=== PATIENT | female | born 1965 | race African-American/Black ===

== ENCOUNTER 2022-05-25 06:51 | Outpatient (REF) | payer OTHER, SELFPAY ==
[2022-05-25 07:22] LABS: MANUAL DIFF FLAG NO
[2022-05-25 07:45] LABS: Basophils Percent Auto 0.8 % (0-2); Eosinophils Absolute Auto 0.4 X10*3/uL (0.0-0.4); Eosinophils Percent Auto 7.6 % (0-4); Hematocrit 34.7 % (37.0-47.0); Hemoglobin 10.8 g/dl (12.0-16.0); Imm Gran Abs Auto 0.01 X10*3/uL (0.00-0.03); Imm Gran Pct Auto 0.2 % (0.0-0.4); Lymphocytes Absolute Auto 1.8 X10*3/uL (1.2-4.9); Lymphocytes Percent Auto 33.8 % (20-40); Mean Corpuscular HGB Conc 31.1 g/dl (31.0-35.0); Mean Corpuscular Hemoglobin 25.7 pg (27.0-33.0); Mean Corpuscular Volume 82.4 fL (80.0-98.0); Mean Platelet Volume 12.1 fL (9.4-12.3); Monocytes Absolute Auto 0.5 X10*3/uL (0.1-1.2); Monocytes Percent Auto 9.5 % (2-11); Neutrophils Absolute Auto 2.5 x10*3/uL (2.0-8.3); Neutrophils Percent Auto 48.1 % (45-73); Platelet Count 262 X10*3/uL (160-400); Red Blood Count 4.21 X10*6/uL (4.20-5.50); Red Cell Distribution Width 13.4 % (11.0-16.0); White Blood Count 5.2 X10*3/uL (4.8-10.8)
[2022-05-25 07:57] LABS: Estimated Average Glucose 329 mg/dL; Hemoglobin A1c % 13.1 %
[2022-05-25 09:25] LABS: Alanine Aminotransferase 14 U/L (0-31); Alkaline Phosphatase 55 U/L (39-117); Anion Gap 14 (12-20); Aspartate Amino Transferase 12 U/L (5-31); Bilirubin Total 0.6 mg/dL (0.0-1.0); Blood Urea Nitrogen 15 mg/dL (9-16); Calcium 9.6 mg/dL (8.4-10.2); Carbon Dioxide 26 mmol/L (22-29); Chloride 100 mmol/L (96-108); Cholesterol 235 mg/dL; Estimated Glomerular Filt Rate 56; Glucose Random 367 mg/dL (60-115); HDL Cholesterol 57 mg/dL; LDL Cholesterol Calculated 163 mg/dl; Potassium 5.1 mmol/L (3.3-5.1); Sodium 135 mmol/L (135-145); TSH reflex Free T4 8.35 uIU/mL (0.32-4.0); Total Protein 6.2 g/dL (6.5-8.0); Triglycerides 79 mg/dL; Vitamin D 25-OH Total 24.3 ng/mL (>30)
[2022-05-25 09:50] LABS: Creatinine Urine 124.37 mg/dL
[2022-05-25 10:16] LABS: Microalbum/Creatinine Ratio Ur 1645.8 ug/mg cr
[2022-05-25 10:24] LABS: Free T4 (Free Thyroxine) 0.81 ng/dL (0.71-1.85)
== END 2022-05-25 06:52 | disposition home or self-care (01) ==
LOC: HO.LAB 06:51
PROVIDERS: PCP Internal Medicine; Visit Provider Nurse Practitioner Family
DX: I10 Essential (primary) hypertension (principal); E11.9 Type 2 diabetes mellitus without complications; Z13.21 Encounter for screening for nutritional disorder; Z13.29 Encounter for screening for other suspected endocrine disorder
CPT/HCPCS: 36415; 80053; 80061; 82043; 82306; 83036; 84439; 84443; 85025

== ENCOUNTER → 2022-05-27 15:10 | Outpatient (REF) | payer OTHER, SELFPAY ==
--- NOTE | 2022-05-27 15:13 | CA_ITS ---
Transthoracic Echocardiogram Patient (Last, First, Middle): Vesta Cronin A Gender: Female Date of : 1965 Age: 57 Procedure Date: 05/27/2022 Procedure Type: Transthoracic Echocardiogram Location: OP Height: 167.64 cm Weight: 78.93 kg BSA: 1.89 m2 Heart Rate: bpm BP: 116 / 60 mmHg Sports Equipment Supervisor: Referring MD: Aurora PATTON Symptoms: R01.1 - Cardiac murmur, unspecified Study Quality: Good ECG Rhythm: Atrial Fibrillation Conclusions: - The left ventricular systolic function is moderately decreased. The visually estimated ejection fraction is between 35-40%. - Evidence suggests grade II (moderate) diastolic dysfunction. - No obvious valvular pathology seen on this study. - Small to moderate circumferential pericardial effusion. Findings Left Ventricle Normal left ventricular cavity size. There is moderately increased left ventricular wall thickness. The left ventricular systolic function is moderately decreased. The visually estimated ejection fraction is between 35 40%. E/E prime ratio is >15, consistent with elevated filling pressures. Evidence suggests grade II (moderate) diastolic dysfunction. LV peak GLS 10.4%. Right Ventricle Normal right ventricular cavity size and systolic function. Atria The left atrium is mildly dilated. The right atrium is normal in size. Aortic Valve There is a normal trileaflet aortic valve. There is no aortic valve stenosis. There is trace (trivial) aortic valve regurgitation. Mitral Valve The mitral valve appears normal. There is trace mitral valve regurgitation. There is no mitral valve stenosis. Pulmonic Valve The pulmonic valve is likely normal. Tricuspid Valve Normal tricuspid valve structure. There is trace tricuspid valve regurgitation. Borderline pulmonary artery systolic pressure. Great Vessels The asc aorta is normal in size. Venous The inferior vena cava is normal in size and collapses greater than 50% with inspiration. Pericardium/Pleural Small to moderate circumferential pericardial effusion. No evidence of tamponade. Prior Study Comparison No prior study available for comparison. Recommendations, Care & Conclusions No obvious valvular pathology seen on this study. Measurements 2D Linear Measurements IVSd: 1.35 0.6-0.9/0.6-1.0 cm LVIDd: 4.40 3.9-5.3/4.2-5.9 cm LVIDd Index: 2.33 2.4-3.2/2.2-3.1 cm/m2 LVIDs: 3.47 2.0-3.6 cm LVPWd: 1.24 0.7-1.1 cm Ao Root: 2.70 2.1-3.5 cm LA Diam: 4.00 2.7-3.8/3.0-4.0 cm LAIDs Index: 2.12 1.5-2.3 cm/m2 LV Mass: 266.60 67-162/88-224 g LV Mass Index: 141.06 43-95/49-115 g/m2 LVOT Diam: 2.00 3.0+(-)1.3 cm 2D Systolic Function EF 4C: 34.70 >55% EF 2C: 27.90 >55% EF BiP: 32.20 >55% Mitral Valve MV Pk E: 1.08 MV PK A: 0.63 MV Decel Time: 131.00 E/A: 1.70 E'Lateral: 6.20 E'Medial: 5.98 E/E' Med: 18.10 E/E' Lat: 17.40 PHT: 38.00 MVA PHT: 5.79 Decel [place]: 8.25 Aortic Valve AoV Pk Luiz: 1.32 AoV Mn Luiz: 0.80 AoV VTI: 0.27 AoV Pk Grad: 7.00 Aov Mn Grad: 3.00 GARRICK Cont.VTI: 1.86 LVOT LVOT Pk Luiz: 0.73 LVOT Mn Luiz: 0.48 LVOT VTI: 0.16 LVOT Pk Grad: 2.00 LVOT Mn Grad: 1.00 LVOT Diam: 2.00 LVOT Area: 3.14 Diastolic Function MV Pk E: 1.08 MV Pk A: 0.63 E/A: 1.70 E'Medial: 5.98 E/E' Med: 18.10 E' Laterial: 6.20 E/E' Lat: 17.40 Right Ventricle TAPSE (mm): 20.00 TVS' Luiz: 9.00 Tricuspid Valve TR Pk Luiz: 1.90 TR Pk Grad: 14.00 RA Press: 3.00 RVSP: 36.00 Great Vessels Aorta Ao Root-2D: 2.70 2.0-3.7 cm Ao Asc: 3.20 2.1-3.4 cm Pulmonary Valve PV Pk Luiz: 0.79 Peak PV Grad: 2.00 Updated in Other Vendor System with Status of Final Demetrio Michele MD electronically signed on 05/27/2022 4:32:17 PM with status of Final
== END ==
LOC: HO.CARD 15:10
PROVIDERS: PCP Internal Medicine; Visit Provider Nurse Practitioner Family
DX: R01.1 Cardiac murmur, unspecified (principal)
CPT/HCPCS: 93306; 93356

== ENCOUNTER 2022-08-12 13:37 | Outpatient (REF) | payer OTHER, SELFPAY ==
[2022-08-12 17:50] LABS: Anion Gap 13 (12-20); B Type Natriuretic Peptide 1336 pg/mL (<100); Blood Urea Nitrogen 14 mg/dL (9-16); Calcium 9.2 mg/dL (8.4-10.2); Carbon Dioxide 27 mmol/L (22-29); Chloride 104 mmol/L (96-108); Estimated Glomerular Filt Rate 51; Glucose Random 268 mg/dL (60-115); Potassium 5.2 mmol/L (3.3-5.1); Sodium 139 mmol/L (135-145)
[2022-08-12 18:08] LABS: TSH reflex Free T4 6.63 uIU/mL (0.32-4.0); Vitamin D 25-OH Total 22.4 ng/mL (>30)
[2022-08-12 19:19] LABS: Free T4 (Free Thyroxine) 0.75 ng/dL (0.71-1.85)
== END 2022-08-12 13:38 | disposition home or self-care (01) ==
LOC: HO.LAB 13:37
PROVIDERS: Nurse Practitioner Family; PCP Internal Medicine; Visit Provider Internal Medicine Cardiovascular Disease
DX: I11.0 Hypertensive heart disease with heart failure (principal); I50.20 Unspecified systolic (congestive) heart failure; I31.39 Other pericardial effusion (noninflammatory); I73.9 Peripheral vascular disease, unspecified; Z13.29 Encounter for screening for other suspected endocrine disorder; Z13.21 Encounter for screening for nutritional disorder
CPT/HCPCS: 36415; 80048; 82306; 83880; 84439; 84443; 93005

== ENCOUNTER → 2022-08-21 09:54 | Outpatient (REF) | payer OTHER, SELFPAY ==
--- NOTE | ~2022-08-21 | NM_ITS ---
EXERCISE MYOCARDIAL PERFUSION STUDY INDICATION: Cardiomyopathy, assess for coronary disease and ischemia TECHNIQUE: The patient was brought in for an exercise perfusion study on 08/21/2022. Patient performed exercise as per Clement protocol and was injected 25 mCi of sestamibi once target heart rate was achieved. Images were obtained using the SPECT gamma camera interlaced with the gating device. Images were obtained in supine position. Resting perfusion study was performed on 08/23/2022. Patient was administered 25 mCi of sestamibi intravenously at rest. Images were then obtained in supine position. Images were processed with the software and compared side to side in short axis, horizontal long axis and vertical long axis views. Total DLP 101mGy-cm. FINDINGS: Raw images were reviewed. The stress perfusion study showed mildly reduced tracer uptake in the mid to distal anterior wall and anterior septum. There is improvement with CT attenuation correction suggestive of soft tissue attenuation artifact. The gated study shows normal LV systolic function with calculated LVEF of 32%. LV cavity is normal in size. The gated study shows globally reduced wall thickening and contractility of segments. Resting study shows no significant perfusion abnormality. Gating at rest reveals globally reduced wall motion with ejection fraction at 39%. The findings are consistent with mild reversible distal anterior/anteroseptal defect that could be from soft tissue attenuation artifact. NM/NM cardiolite stress test IMPRESSION: 1. Myocardial perfusion imaging study shows no clear evidence of any ischemia or infarction. 2. Gated LVEF is 32% during stress and 39% during rest. 3. Transient ischemic dilatation not present. EKG component of the test reported separately.
--- NOTE | 2022-08-21 09:57 | CA_ITS ---
Acquisition Time: 2022-08-21 10:20:03 Total Exercise Time: 00:05:36 Test Indications: HEART FAILURE Medications: Protocol: VIANEY Max HR: 139 BPM 85% of Pred: 162 BPM Max BP: 210/082 mmHG Max Work Load: 5.3 METS Exercise stress test using Vianey protocol total of 5 min 36 sec. Second stage held d/t sob. METS, 5.30. TAPHR up to 85 %. EKG with occasional PAC's No ischemic changes seen, no CP during and after the exercise. Nuclear images to follow. Hypertensive response to exercise. Test reviewed with Dr. Alegria Referred By: Rolando Alegria Overread By: Cindy Almeida NP
== END ==
LOC: HO.CARD 09:54
PROVIDERS: Visit Provider Internal Medicine Cardiovascular Disease
DX: I50.20 Unspecified systolic (congestive) heart failure (principal)
CPT/HCPCS: 78452; 93017; A9500

== ENCOUNTER 2022-09-03 15:02 | Outpatient (REF) | payer OTHER, SELFPAY ==
[2022-09-03 17:03] LABS: Anion Gap 14 (12-20); Blood Urea Nitrogen 22 mg/dL (9-16); Calcium 9.9 mg/dL (8.4-10.2); Carbon Dioxide 25 mmol/L (22-29); Chloride 104 mmol/L (96-108); Estimated Glomerular Filt Rate 49; Glucose Random 238 mg/dL (60-115); Potassium 4.7 mmol/L (3.3-5.1); Sodium 138 mmol/L (135-145)
[2022-09-03 17:06] LABS: B Type Natriuretic Peptide 890 pg/mL (<100)
== END 2022-09-03 15:03 | disposition home or self-care (01) ==
LOC: HO.LAB 15:02
PROVIDERS: PCP Internal Medicine; Visit Provider Internal Medicine Cardiovascular Disease
DX: I50.20 Unspecified systolic (congestive) heart failure (principal)
CPT/HCPCS: 36415; 80048; 83880

== ENCOUNTER 2022-09-14 07:35 | Outpatient (REF) | payer OTHER, SELFPAY ==
[2022-09-14 08:06] LABS: MANUAL DIFF FLAG NO
[2022-09-14 08:45] LABS: Basophils Percent Auto 0.5 % (0-2); Eosinophils Absolute Auto 0.6 X10*3/uL (0.0-0.4); Eosinophils Percent Auto 13.1 % (0-4); Hematocrit 36.4 % (37.0-47.0); Hemoglobin 11.4 g/dl (12.0-16.0); Imm Gran Abs Auto 0.01 X10*3/uL (0.00-0.03); Imm Gran Pct Auto 0.2 % (0.0-0.4); Lymphocytes Absolute Auto 1.8 X10*3/uL (1.2-4.9); Lymphocytes Percent Auto 42.5 % (20-40); Mean Corpuscular HGB Conc 31.3 g/dl (31.0-35.0); Mean Corpuscular Hemoglobin 26.3 pg (27.0-33.0); Mean Corpuscular Volume 84.1 fL (80.0-98.0); Mean Platelet Volume 12.1 fL (9.4-12.3); Monocytes Absolute Auto 0.4 X10*3/uL (0.1-1.2); Monocytes Percent Auto 9.2 % (2-11); Neutrophils Absolute Auto 1.5 x10*3/uL (2.0-8.3); Neutrophils Percent Auto 34.5 % (45-73); Platelet Count 222 X10*3/uL (160-400); Red Blood Count 4.33 X10*6/uL (4.20-5.50); Red Cell Distribution Width 13.5 % (11.0-16.0); White Blood Count 4.3 X10*3/uL (4.8-10.8)
[2022-09-14 09:13] LABS: Estimated Average Glucose 258 mg/dL; Hemoglobin A1c % 10.6 %
[2022-09-14 09:46] LABS: Cholesterol 236 mg/dL; HDL Cholesterol 64 mg/dL; Iron 72 mcg/dL (30-160); LDL Cholesterol Calculated 162 mg/dl; Percent Iron Saturation 29 % (15-50); Total Iron Binding Capacity 247 mcg/dL (228-428); Triglycerides 51 mg/dL; Unsaturated Iron Binding 175 ug/dL
[2022-09-14 10:16] LABS: Free T4 (Free Thyroxine) 0.76 ng/dL (0.71-1.85)
== END 2022-09-14 07:36 | disposition home or self-care (01) ==
LOC: HO.LAB 07:35
PROVIDERS: PCP Internal Medicine; Visit Provider Nurse Practitioner Family
DX: Z13.29 Encounter for screening for other suspected endocrine disorder (principal); Z13.0 Encounter for screening for diseases of the blood and blood-forming organs and certain disorders involving the immune mechanism; E78.00 Pure hypercholesterolemia, unspecified; D64.9 Anemia, unspecified; E11.9 Type 2 diabetes mellitus without complications
CPT/HCPCS: 36415; 80061; 83036; 83540; 84439; 84443; 85025

== ENCOUNTER → 2022-10-29 14:47 | Outpatient (BNVA) | payer OTHER, SELFPAY | PROVIDERS: PCP Internal Medicine; Referring Provider Internal Medicine; Visit Provider Nurse Practitioner Family | DX: Z13.89 Encounter for screening for other disorder (principal) ==

== ENCOUNTER → 2023-01-03 09:46 | Outpatient (REF) | payer OTHER, SELFPAY | LOC: HO.CARD 09:46 | PROVIDERS: PCP Internal Medicine; Visit Provider Nurse Practitioner Family | DX: I42.9 Cardiomyopathy, unspecified (principal); I31.39 Other pericardial effusion (noninflammatory) | CPT/HCPCS: 93308; 93356 ==

== ENCOUNTER 2023-02-03 09:27 | Outpatient (AMB) | payer OTHER, SELFPAY ==
--- NOTE | 2023-02-03 09:33 | MHC.OFFVIS ---
Intake Vital Signs 02/03/23 09:34 Height 5 ft 5 in Weight 167 lb 8.821 oz BMI 27.9 BP 120/72 Blood Pressure Location Lt brachial Position Sitting Pulse 58 Intake Visit Reasons: 3 MON FUP AFTER ECHO PER DC Intake Note: 3 month follow-up after echo per Clarisse feeling a little better Web Search Evaluator Required: No Allergies sacubitril [From Entresto] Allergy (Severe, Verified 12/13/22 16:15) Nausea and Vomiting fish derived [FISH] Allergy (Unknown, Verified 12/13/22 16:15) itchy,rash ferrous sulfate Allergy (Verified 12/13/22 16:15) Abdominal Pain terazosin Adverse Reaction (Verified 12/13/22 16:15) Diarrhea metformin Adverse Reaction (Unknown, Uncoded 12/13/22 16:32) mouth sore Medication List - Last Reconciled 02/03/23 by Rolando Alegria MD carvedilol (Coreg) 3.125 mg PO BID cholecalciferol (vitamin D3) (Vitamin D3) 25 mcg PO DAILY empagliflozin (Jardiance) 10 mg PO DAILY furosemide (Lasix) 20 mg PO DAILY glipizide 10 mg PO BID ketoconazole 2% 1 appl topical DAILY rosuvastatin 20 mg PO DAILY valsartan 80 mg PO BID 90 days HPI HPI Comments History of Present Illness Details 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 She has been feeling well from cardiac perspective. She has not had any clear orthopnea, worsening leg edema, worsening shortness of breath. She walks for 30 minutes at a stretch and has no worsening symptoms. Blood pressure is better controlled. She takes Lasix on every other day basis. She complains of right calf discomfort also left leg discomfort at rest also with walking. She denies any sores or change in color in her toes. She denies any prolonged palpitations. No lightheadedness, syncope. She says she cannot sing at a higher pitch, thinks this is related to the medications. Echocardiogram shows mildly improved LV ejection fraction at 43%. [facility] Medical History Acute dermatitis Anemia CHF (congestive heart failure) Diabetes Hypercholesteremia Hypertension Hypothyroidism Murmur, cardiac PAD (peripheral artery disease) Pericardial effusion Subclinical hypothyroidism Tinea versicolor Vitamin D deficiency Surgical History History of revascularization procedure of lower extremity S/P complete hysterectomy Family History Father Prostate cancer Mother Hypertension Sister Hypertension Brother No problems noted. 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 Hearing needs: No Vision needs: No Review of Systems Const Denies chills, Denies fatigue, Denies fever(s), Denies frequent falls, Denies weakness, Denies weight gain and Denies weight loss ENT Denies dizziness Card Denies chest pain, Denies leg edema, Denies lightheadedness, Denies palpitations, Denies dyspnea, Denies dyspnea on exertion, Denies orthopnea and Denies other (loss of consciousness) Resp Denies cough, Denies dyspnea and Denies dyspnea on exertion GI Denies hematochezia and Denies change in stool character Musc Denies abnormal gait, Denies muscle weakness, Denies numbness, Denies radiating pain into limb and Denies tingling Neuro Denies Abnormal speech present, Denies abnormal gait, Denies dizziness, Denies frequent falls, Denies numbness, Denies tingling and Denies weakness Endo Denies fatigue and Denies palpitations Physical Exam Vital Signs: Last Vital Signs Pulse 58 02/03/23 09:34 BP 120/72 02/03/23 09:34 BMI result Body Mass Index 27.9 Const General: cooperative, comfortable, no acute distress, alert, awake and well groomed Nutritional Appearance: overweight Orientation/consciousness: patient oriented x3 Limitations: no limitations HEENT Head: Yes normocephalic and Yes atraumatic Neck Neck: Yes trachea midline, Yes supple and Yes no JVD Resp Effort & Inspection: normal respiratory effort Auscultation: clear to auscultation bilaterally Cardio Jugular venous distension: no JVD Rate: regular rate Rhythm: regular rhythm Heart sounds: S1 normal heart sound present, S2 normal heart sound present, no click, no gallops, no murmurs and no rubs GI Auscultation: normal bowel sounds Skin General skin exam: no rashes or lesions noted Neuro General: patient oriented x3 and no focal motor deficits Speech: No Abnormal speech present Extrem General: No clubbing, No cyanosis and Yes edema Psych Appearance: grossly normal Assessment & Plan Assessment & Plan (1) Heart failure with reduced ejection fraction: Code(s): I50.20 - Unspecified systolic (congestive) heart failure Plan: Heart failure with reduced ejection fraction secondary to nonischemic cardiomyopathy most likely hypertensive cardiomyopathy. Clinically doing well with NYHA class 1 symptoms. No signs or symptoms of hypovolemia at this point time. Continue current diuretic does as currently prescribed. Daily weight monitoring avoidance of salt loading was discussed. Continue current neurohormonal modulation with carvedilol, valsartan and Jardiance. Importance of medical therapy was discussed. I do not think any of her medications would cause her to have issues with her voice. Consider ENT evaluation. Complains of bilateral lower extremity discomfort at rest as well as with walking. Will evaluate for peripheral vascular disease. Continue statin therapy with target goal LDL less than 70 mg/dL. Follow up in the clinic in 6 months time, sooner p.r.n. after an echocardiogram. Orders: Orders Basic Metabolic Panel Today I50.20 - Unspecified systolic (congestive) heart failure B Type Natriuretic Peptide Today I50.20 - Unspecified systolic (congestive) heart failure arterial duplex LE BI Today M79.604 - Pain in right leg, M79.605 - Pain in left leg Medications: Changed From furosemide (Lasix) 20 mg PO DAILY 90 days 90 tabs 1RF I50.20 - Unspecified systolic (congestive) heart failure To furosemide (Lasix) every other day 20 mg PO DAILY I50.20 - Unspecified systolic (congestive) heart failure Coding Level of Care Code Est Pt Level 4 (14381) Diagnoses Heart failure with reduced ejection fraction I50.20
[2023-02-03 09:34] VITALS: BP 120/72; PULSE 58; BMI 27.9
== END 2023-02-03 10:00 | disposition home or self-care (01) ==
PROVIDERS: PCP Internal Medicine; Referring Provider Internal Medicine; Visit Provider Internal Medicine Cardiovascular Disease
DX: I50.20 Unspecified systolic (congestive) heart failure (principal)
CPT/HCPCS: 99214

== ENCOUNTER 2023-02-03 09:27 | Outpatient (REF) | payer OTHER, SELFPAY ==
[2023-02-03 12:11] LABS: B Type Natriuretic Peptide 386 pg/mL (<100)
[2023-02-03 12:13] LABS: Anion Gap 15 (12-20); Blood Urea Nitrogen 33 mg/dL (9-16); Calcium 9.3 mg/dL (8.4-10.2); Carbon Dioxide 23 mmol/L (22-29); Chloride 103 mmol/L (96-108); Estimated Glomerular Filt Rate 40; Glucose Random 328 mg/dL (60-115); Potassium 4.9 mmol/L (3.3-5.1); Sodium 136 mmol/L (135-145)
== END 2023-02-03 09:28 | disposition home or self-care (01) ==
LOC: HO.LAB 09:27
PROVIDERS: PCP Internal Medicine; Referring Provider Internal Medicine; Visit Provider Internal Medicine Cardiovascular Disease
DX: I50.20 Unspecified systolic (congestive) heart failure (principal)
CPT/HCPCS: 36415; 80048; 83880

== ENCOUNTER 2023-02-13 12:28 | Outpatient (REF) | payer OTHER, SELFPAY ==
--- NOTE | ~2023-02-13 | US_ITS ---
CLINICAL INDICATION: Right leg pain. History of revascularization procedure of the right lower extremity November 2020. FINDINGS: Real-time duplex on the examination of the lower extremity arterial systems was performed bilaterally from the levels of the external iliac arteries to the ankles. Right lower extremity peak systolic velocities (cm/s): Common femoral artery: 303 Profunda femoral artery: 169 Proximal superficial femoral artery: 95 Mid superficial femoral artery: 118 Distal superficial femoral artery: 101 Popliteal artery: 50 Posterior tibial artery: 34 Peroneal artery: 49 Grayscale and color Doppler imaging of the right lower extremity demonstrates triphasic flow to the level of the popliteal artery and monophasic flow within the distal aspects of the posterior tibial and peroneal arteries. Left lower extremity peak systolic velocities (cm/s): Common femoral artery: 136 Profunda femoral artery: 74 Proximal superficial femoral artery: 128 Mid superficial femoral artery: 111 Distal superficial femoral artery: 113 Popliteal artery: 86 Posterior tibial artery: No flow identified Peroneal artery: 166 Grayscale and color Doppler imaging of the left lower extremity demonstrates triphasic flow throughout. No visualized flow within the left posterior tibial artery. US/US arterial duplex LE BI IMPRESSION: Suspect bilateral infrapopliteal disease with probable occlusion of the left posterior tibial artery.
== END 2023-02-13 12:29 | disposition home or self-care (01) ==
LOC: HO.US 12:28
PROVIDERS: Visit Provider Internal Medicine Cardiovascular Disease
DX: M79.604 Pain in right leg (principal); M79.605 Pain in left leg
CPT/HCPCS: 93925

== ENCOUNTER 2023-04-05 07:10 | Outpatient (REF) | payer OTHER, SELFPAY ==
[2023-04-05 08:58] LABS: Alanine Aminotransferase 11 U/L (0-31); Albumin Level 4.4 g/dL (3.5-5.0); Alkaline Phosphatase 38 U/L (39-117); Anion Gap 13 (12-20); Aspartate Amino Transferase 14 U/L (5-31); Bilirubin Total 0.4 mg/dL (0.0-1.0); Blood Urea Nitrogen 21 mg/dL (9-16); Calcium 9.6 mg/dL (8.4-10.2); Carbon Dioxide 26 mmol/L (22-29); Chloride 108 mmol/L (96-108); Cholesterol 136 mg/dL (<200); Estimated Glomerular Filt Rate 38; Glucose Random 239 mg/dL (60-115); HDL Cholesterol 54 mg/dL (>40); Iron 75 mcg/dL (30-160); LDL Cholesterol Calculated 73 mg/dL (<100); Percent Iron Saturation 27 % (15-50); Potassium 5.2 mmol/L (3.3-5.1); Sodium 142 mmol/L (135-145); Total Iron Binding Capacity 273 mcg/dL (228-428); Total Protein 6.9 g/dL (6.5-8.0); Triglycerides 47 mg/dL (<150); Unsaturated Iron Binding 198 ug/dL
== END 2023-04-05 07:11 | disposition home or self-care (01) ==
LOC: HO.LAB 07:10
PROVIDERS: Nurse Practitioner Family; PCP Internal Medicine; Visit Provider Internal Medicine
DX: E11.65 Type 2 diabetes mellitus with hyperglycemia (principal); E78.00 Pure hypercholesterolemia, unspecified; E03.8 Other specified hypothyroidism
CPT/HCPCS: 36415; 80053; 80061; 82043; 82570; 82607; 82728; 82746; 83540; 84439; 84443; 85025; 85045

== ENCOUNTER 2023-04-09 10:05 | Outpatient (AMB) | payer OTHER, SELFPAY ==
[2023-04-09 10:42] VITALS: BP 180/100; PULSE 78; O2SAT 98; BMI 28.1
--- NOTE | 2023-04-09 10:42 | MHC.PC.OV ---
Vital Signs 04/09/23 10:42 Height 5 ft 5 in Weight 169 lb BMI 28.1 BP 180/100 H Blood Pressure Location Lt brachial Position Sitting Pulse 78 Pulse Source Pulse Oximeter Pulse Oximetry (%) 98 Oxygen Delivery Method Room Air Intake Visit Reasons: 3 month f/u Allergies sacubitril [From Entresto] Allergy (Severe, Verified 04/09/23 10:43) Nausea and Vomiting fish derived [FISH] Allergy (Unknown, Verified 04/09/23 10:43) itchy,rash ferrous sulfate Allergy (Verified 04/09/23 10:43) Abdominal Pain terazosin Adverse Reaction (Verified 04/09/23 10:43) Diarrhea metformin Adverse Reaction (Unknown, Uncoded 04/09/23 10:43) mouth sore Medication List - Last Reconciled 04/09/23 by Anibal Garcia MD blood pressure monitor (Blood Pressure Kit) As directed carvedilol (Coreg) 3.125 mg PO BID cholecalciferol (vitamin D3) (Vitamin D3) 25 mcg PO DAILY empagliflozin (Jardiance) 10 mg PO DAILY furosemide (Lasix) 20 mg PO DAILY glipizide 10 mg PO BID ketoconazole 2% 1 appl topical DAILY rosuvastatin 20 mg PO DAILY valsartan 80 mg PO BID 90 days Tobacco use date assessed: 08/30/22 Dental Screening Dental Screen Date: 04/09/23 Did you have a dental visit in the last 12 months?: Yes Did you have a dental problem in the last 6 months where you did not have access to dental care?: No Was dental information given to patient?: Patient has dentist HPI 3 month f/u HPI Details 58-year-old overweight female with uncontrolled diabetes mellitus hypertension hypercholesterolemia cardiomyopathy hypothyroidism and congestive heart failure last seen in November 2022. Patient is here for follow-up. Review of the notes had a flu shot also had some leg pains and patient had an ultrasound/duplex on the lower extremity showing bilateral infrapopliteal disease with probable occlusion of the left posterior tibial artery. Echocardiogram done December 2022The left ventricular systolic function is mild to moderately decreased. The calculated ejection fraction is 43% by biplane method. - Small to moderate circumferential pericardial effusion. - Moderate pulmonary hypertension is present. complains of loosing voice last year - [facility] Medical History Acute dermatitis Anemia CHF (congestive heart failure) Diabetes Hypercholesteremia Hypertension Hypothyroidism Murmur, cardiac PAD (peripheral artery disease) Pericardial effusion Subclinical hypothyroidism Tinea versicolor Vitamin D deficiency Surgical History History of revascularization procedure of lower extremity S/P complete hysterectomy Family History Father Prostate cancer Mother Hypertension Sister Hypertension Brother No problems noted. 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 1. Little interest or pleasure in doing things: not at all 2. Feeling down, depressed, or hopeless: not at all 3. Trouble falling or staying asleep, or sleeping too much: not at all 4. Feeling tired or having little energy: not at all 5. Poor appetite or overeating: not at all 6. Feeling bad about yourself - or that you are a failure or have let yourself or your family down: not at all 7. Trouble concentrating on things, such as reading the newspaper or watching television: not at all 8. Moving or speaking so slowly that other people could have noticed. Or the opposite - being so fidgety or restless that you have been moving around a lot more than usual: not at all 9. Thoughts that you would be better off or of hurting yourself in some way: not at all Total score: 0 Depression Screening Interpretation: Negative Depression Screening Done: Yes Source: Developed by Drs. Vinh Garcia, Alicia Allred, Jordan Olvera and colleagues, with an educational mela from [employer]. Thrive Questionnaire Date Thrive assessed: 08/30/22 AUDIT C Alcohol Use Questionnaire (AUDIT-C) 1. How often do you have a drink containing alcohol?: Never Total Score: 0 FABIO-7 AMB Questionnaire FABIO-7 Date FABIO - 7 assessed: 08/30/22 Source: Developed by DrsEstephanie Garcia, Alicia Allred, Jordan Olvera and colleagues, with an educational mela from [employer]. Physical exam (Primary Care) Vital Signs: Last Vital Signs Pulse 78 04/09/23 10:42 BP 180/100 H 04/09/23 10:42 Pulse Ox 98 04/09/23 10:42 Oxygen Delivery Method Room Air 04/09/23 10:42 BMI result Body Mass Index 28.1 Tobacco/Smoking Status: Tobacco use Status Tobacco use date assessed 08/30/22 04/09/23 10:46 Patient Tobacco Use Status Never used Tobacco 04/09/23 10:46 Tobacco use type Cigarette 04/09/23 10:46 e-Cigarette/Vaping Use Never Used 04/09/23 10:46 PHQ-9: PHQ-9 Score PHQ-9: Total score 0 04/09/23 10:46 Depression Screening Interpretation: Negative Thrive Assessment: Date of Thrive Assessment Date Thrive assessed 08/30/22 04/09/23 10:46 Const General: alert; No acute distress Eyes Conjunctivae: conjunctivae normal Resp Auscultation: clear to auscultation bilaterally Cardio Rate: regular rate Rhythm: regular rhythm GI Inspection: Yes normal to inspection Extrem General: Yes normal to inspection and No edema Results AMB Hemoglobin A1c AMB Hemoglobin A1c 10.3 % Last Edit by Marti Perez CMA on 04/09/23 11:06 Assessment and Plan Assessment & Plan (1) Type 2 diabetes mellitus with hyperglycemia: Code(s): E11.65 - Type 2 diabetes mellitus with hyperglycemia Plan: Decrease the amount of carbohydrate intake, pasta, bread, rice and potatoes are all sugar and that is aside from all the sweet stuff, remember that fruits are good but they are Sweet also. Patient presently on glipizide 10 mg twice a day and Jardiance 10 mg once a day hemoglobin A1c goal of less than 6.5 (2) Cardiomyopathy: Code(s): I42.9 - Cardiomyopathy, unspecified Plan: Patient follows up with Cardiology continue with blood pressure control cholesterol control (3) Hypothyroidism: Code(s): E03.9 - Hypothyroidism, unspecified Plan: TSH being monitored (4) Heart failure with reduced ejection fraction: Code(s): I50.20 - Unspecified systolic (congestive) heart failure Plan: Continue with diuretic Coreg and Jardiance (5) Hypercholesteremia: Code(s): E78.00 - Pure hypercholesterolemia, unspecified Plan: Avoid fried foods, chicken skin, eggs, butter margarine, pastries and meat. Be it pork or beef they have a lot of cholesterol patient on rosuvastatin 20 mg once a day (6) Anemia: Code(s): D64.9 - Anemia, unspecified Plan: Continue to monitor (7) Hypertension: Code(s): I10 - Essential (primary) hypertension Plan: Continue with blood pressure medication. Decrease salt intake and exercise patient takes valsartan 80 mg twice a day carvedilol 3.125 mg twice a day (8) Hoarseness: Code(s): R49.0 - Dysphonia Orders: Orders AMB Hemoglobin A1c Today Z13.9 - Encounter for screening, unspecified Referrals Ear/Nose/Throat Referral R49.0 - Dysphonia Ophthalmology Referral E11.65 - Type 2 diabetes mellitus with hyperglycemia Medications: New blood pressure monitor (Blood Pressure Kit) As directed 1 ea 0RF I10 - Essential (primary) hypertension Changed From carvedilol (Coreg) must administer with a meal/food 3.125 mg PO BID 60 tabs 2RF To carvedilol must administer with a meal/food 6.25 mg PO BID 60 tabs 2RF From empagliflozin (Jardiance) 10 mg PO DAILY 30 tabs 2RF E11.65 - Type 2 diabetes mellitus with hyperglycemia To empagliflozin 25 mg PO DAILY 30 tabs 2RF E11.65 - Type 2 diabetes mellitus with hyperglycemia Coding Level of Care Code Est Pt Level 4 (73138) Diagnoses Type 2 diabetes mellitus with hyperglycemia E11.65 Cardiomyopathy I42.9 Hypothyroidism E03.9 Heart failure with reduced ejection fraction I50.20 Hypercholesteremia E78.00 Anemia D64.9 Hypertension I10 Hoarseness R49.0 Additional Codes PHQ-9 - 04322 - PHQ-9 Billing: ([id number])
== END 2023-04-09 11:29 | disposition home or self-care (01) ==
PROVIDERS: PCP Internal Medicine; Visit Provider Internal Medicine
DX: E11.65 Type 2 diabetes mellitus with hyperglycemia (principal); I42.9 Cardiomyopathy, unspecified; I11.0 Hypertensive heart disease with heart failure; I50.20 Unspecified systolic (congestive) heart failure
CPT/HCPCS: 83036; 99214

== ENCOUNTER 2023-04-29 15:15 | Outpatient (AMB) | payer OTHER, SELFPAY ==
--- NOTE | 2023-04-29 15:15 | A.OFFVIS_ITS ---
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 Pt states bilateral LE cramping ( both LE feel the same) and walking helps prevent cramping per pt.. 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 She is a [place] of [facility]. She is currently a non in [place]. She is quite active. She can walk nearly 30 minutes with no significant difficulty. As it has gotten darker she does use her exercise bike within her house. She has never smoked. She has been a long-standing diabetic for over 20 years. She reports that she had some sort of endovascular intervention back in 2020 in [place]. Of what she is not exactly clear. She now presents to us for vascular evaluation COUNTS INCLUDE 234 BEDS AT THE [facility] Medical History (Updated 04/29/23 @ 15:58 by Jamey Aldridge MD) Subclinical hypothyroidism Tinea versicolor Hypothyroidism Vitamin D deficiency Hypercholesteremia Anemia PAD (peripheral artery disease) CHF (congestive heart failure) Pericardial effusion Acute dermatitis Murmur, cardiac Diabetes Hypertension Surgical History History of revascularization procedure of lower extremity S/P complete hysterectomy Family History Father Prostate cancer Mother Hypertension Sister Hypertension Brother No problems noted. 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 Hearing needs: No Vision needs: No Review of Systems Const All systems reviewed & are unremarkable except as noted in HPI and below Reports no additional complaints ENT Reports Normal hearing present Card Denies chest pain, Denies chest pain at rest, Denies chest pain with activity and Denies pedal edema Resp Denies cough GI Denies abdominal pain Musc Denies abnormal gait, Denies muscle cramps and Denies radiating pain into limb Skin/Breast Denies skin ulcer and Denies wounds Neuro Reports Normal hearing present and Denies abnormal gait Psych Reports no additional complaints Physical Exam Vital Signs: BMI result Body Mass Index 27.8 Const General: cooperative, healthy appearing and comfortable Orientation/consciousness: oriented to person, oriented to place and oriented to time HEENT Head: Yes normal to inspection Neck Neck: Yes normal visual inspection Carotids: no bruits Chest Chest palpation & inspection: normal inspection of the chest Resp Effort & Inspection: normal respiratory effort and able to speak in complete sentences Auscultation: clear to auscultation bilaterally, no crackles, no rales, no rhonchi and no wheezes Cardio Other: Left leg palpable DP Rate: regular rate Rhythm: regular rhythm Heart sounds: S1 normal heart sound present and S2 normal heart sound present Bruits: no carotid bruits Peripheral pulses: Peripheral pulses 2+ throughout GI Inspection: Yes normal to inspection Skin Wounds: no wounds Hair: normal Neuro General: oriented to person, oriented to place and oriented to time Cranial nerves: Yes CN's II-XII intact bilaterally and Yes Normal hearing present Cognition (Neuro): normal cognition Motor exam (neuro): 5/5 motor strength present throughout Extrem Other: venous exam: No significant superficial varicosities or spider telangi ectasias, minimal edema General: No clubbing, No cyanosis and No edema Psych Appearance: grossly normal Mental Status: mental status grossly normal Speech and movement: Normal speech and movement present Results Reviewed Results Reviewed: Noninvasive arterial testing demonstrates good flow down bilateral lower extremities with triphasic flow. There is concern on the left leg that the posterior tibial artery was not identified. Assessment & Plan Assessment & Plan (1) PAD (peripheral artery disease): Comment: 2020 - left leg angiogram in [place] Code(s): I73.9 - Peripheral vascular disease, unspecified Plan: In short patient has stable claudication. She is quite active and easily walks a 1/2 hour with no difficulty. I did review the pathophysiology of peripheral vascular disease with the patient. In addition we did discuss routine conservative measures including a healthy diet and the importance of exercise and ambulation. We did discuss risk factor modification. The patient will continue to to follow-up with surveillance follow-up in approximately 1 year. Thank you for allowing us to participate in this patient's care. If there are any questions or concerns please do not hesitate to contact us. Orders: Orders US arterial duplex LE BI 364 Days I73.9 - Peripheral vascular disease, unspecified Coding Level of Care Code Est Pt Level 4 (38938) Diagnoses PAD (peripheral artery disease) I73.9
[2023-04-29 15:16] VITALS: BMI 27.8
== END 2023-04-29 15:53 | disposition home or self-care (01) ==
PROVIDERS: PCP Internal Medicine; Visit Provider Surgery Vascular Surgery
DX: I73.9 Peripheral vascular disease, unspecified (principal)
CPT/HCPCS: 99213

== ENCOUNTER → 2023-04-29 15:15 | Outpatient (BNVA) | payer OTHER, SELFPAY | PROVIDERS: PCP Internal Medicine; Visit Provider Surgery Vascular Surgery ==

== ENCOUNTER 2023-05-15 15:22 | Outpatient (AMB) | payer OTHER, SELFPAY ==
[2023-05-15 15:29] VITALS: BP 180/70; PULSE 65; O2SAT 100; BMI 28.8
--- NOTE | 2023-05-15 15:29 | MHC.PC.OV ---
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 Accompanied by: Self / Same As Patient Allergies sacubitril [From Entresto] Allergy (Severe, Verified 05/15/23 15:29) Nausea and Vomiting fish derived [FISH] Allergy (Unknown, Verified 05/15/23 15:29) itchy,rash ferrous sulfate Allergy (Verified 05/15/23 15:29) Abdominal Pain valsartan Adverse Reaction (Intermediate, Unverified 05/15/23 16:15) Cough terazosin Adverse Reaction (Verified 05/15/23 15:29) Diarrhea metformin Adverse Reaction (Unknown, Uncoded 05/15/23 15:29) mouth sore Medication List - Last Reconciled 05/15/23 by Anibal Garcia MD blood pressure monitor (Blood Pressure Kit) As directed carvedilol 12.5 mg PO BID cholecalciferol (vitamin D3) (Vitamin D3) 25 mcg PO DAILY empagliflozin 25 mg PO DAILY furosemide 20 mg PO DAILY glipizide 10 mg PO BID ketoconazole 2% 1 appl topical DAILY rosuvastatin 20 mg PO DAILY valsartan 80 mg PO BID 90 days Tobacco use date assessed: 08/30/22 Dental Screening Dental Screen Date: 05/15/23 Did you have a dental visit in the last 12 months?: Yes Did you have a dental problem in the last 6 months where you did not have access to dental care?: No Was dental information given to patient?: Patient has dentist HPI High BP HPI Details 58-year-old overweight sister with uncontrolled diabetes mellitus cardiomyopathy hypothyroidism congestive heart failure hypercholesterolemia hypertension and chronic anemia coming in for follow-up. Last seen in March 2023 discussed that with a hemoglobin A1c high the need for insulin but patient declined.. Patient has seen vascular surgeon for peripheral vascular disease patient states 2020 has had an endovascular intervention ultrasound of the arterial duplex recommend. Patient had an echocardiogram done in December 2022 left ventricular function is [id number] decreased ejection fraction of 43% small to moderate pericardial effusion and moderate pulmonary hypertension. Pateint is very hesitant with any changes with [facility] Medical History Subclinical hypothyroidism Tinea versicolor Hypothyroidism Vitamin D deficiency Hypercholesteremia Anemia PAD (peripheral artery disease) CHF (congestive heart failure) Pericardial effusion Acute dermatitis Murmur, cardiac Diabetes Hypertension Surgical History History of revascularization procedure of lower extremity S/P complete hysterectomy Family History Father Prostate cancer Mother Hypertension Sister Hypertension Brother No problems noted. 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 1. Little interest or pleasure in doing things: not at all 2. Feeling down, depressed, or hopeless: not at all 3. Trouble falling or staying asleep, or sleeping too much: not at all 4. Feeling tired or having little energy: not at all 5. Poor appetite or overeating: not at all 6. Feeling bad about yourself - or that you are a failure or have let yourself or your family down: not at all 7. Trouble concentrating on things, such as reading the newspaper or watching television: not at all 8. Moving or speaking so slowly that other people could have noticed. Or the opposite - being so fidgety or restless that you have been moving around a lot more than usual: not at all 9. Thoughts that you would be better off or of hurting yourself in some way: not at all Total score: 0 Depression Screening Interpretation: Negative Depression Screening Done: Yes Source: Developed by Drs. Vinh Garcia, Alicia Allred, Jordan Olvera and colleagues, with an educational mela from [employer]. Thrive Questionnaire Date Thrive assessed: 08/30/22 AUDIT C Alcohol Use Questionnaire (AUDIT-C) 1. How often do you have a drink containing alcohol?: Never Total Score: 0 FABIO-7 AMB Questionnaire FABIO-7 Date FABIO - 7 assessed: 08/30/22 Source: Developed by Drs. Vinh Garcia, Alicia Allred, Jordan Olvera and colleagues, with an educational mela from [employer]. Physical exam (Primary Care) Vital Signs: Last Vital Signs Pulse 65 05/15/23 15:29 BP 180/70 H 05/15/23 15:29 Pulse Ox 100 05/15/23 15:29 Oxygen Delivery Method Room Air 05/15/23 15:29 BMI result Body Mass Index 28.8 Tobacco/Smoking Status: Tobacco use Status Tobacco use date assessed 08/30/22 05/15/23 15:35 Patient Tobacco Use Status Never used Tobacco 05/15/23 15:35 Tobacco use type Cigarette 05/15/23 15:35 e-Cigarette/Vaping Use Never Used 05/15/23 15:35 PHQ-9: PHQ-9 Score PHQ-9: Total score 0 05/15/23 15:52 Depression Screening Interpretation: Negative Thrive Assessment: Date of Thrive Assessment Date Thrive assessed 08/30/22 05/15/23 15:35 Const General: alert; No acute distress Eyes Conjunctivae: conjunctivae normal Resp Auscultation: clear to auscultation bilaterally Cardio Rate: regular rate Rhythm: regular rhythm GI Inspection: Yes normal to inspection Extrem General: Yes normal to inspection and No edema Assessment and Plan Assessment & Plan (1) Hypertension: Code(s): I10 - Essential (primary) hypertension Plan: Continue with blood pressure medication. Decrease salt intake and exercise presently on carvedilol 6.25 mg twice a day valsartan 80 mg twice a day and has been complaining of cough for couple of months already will stop the valsartan and start on amlodipine. (2) Anemia: Code(s): D64.9 - Anemia, unspecified Plan: Continuing to monitor (3) Hypercholesteremia: Code(s): E78.00 - Pure hypercholesterolemia, unspecified Plan: Avoid fried foods, chicken skin, eggs, butter margarine, pastries and meat. Be it pork or beef they have a lot of cholesterol LDL goal of less than 70 (4) Heart failure with reduced ejection fraction: Code(s): I50.20 - Unspecified systolic (congestive) heart failure Plan: Continue with diuretic continue to monitor the renal function (5) Cardiomyopathy: Code(s): I42.9 - Cardiomyopathy, unspecified Plan: Continue to follow-up with cardiology (6) Subclinical hypothyroidism: Code(s): E03.8 - Other specified hypothyroidism Plan: Advised to retest thyroid (7) Type 2 diabetes mellitus with hyperglycemia: Code(s): E11.65 - Type 2 diabetes mellitus with hyperglycemia Plan: Decrease the amount of carbohydrate intake, pasta, bread, rice and potatoes are all sugar and that is aside from all the sweet stuff, remember that fruits are good but they are Sweet also. Hemoglobin A1c goal of less than 6.5. Patient on Jardiance 25 mg once a day glipizide 10 mg once a day patient declined any additional medication for now (8) PAD (peripheral artery disease): Comment: 2020 - left leg angiogram in [place] Code(s): I73.9 - Peripheral vascular disease, unspecified Plan: Patient has seen vascular surgeon and workup pending (9) Cough: Code(s): R05.9 - Cough, unspecified Plan: Patient has complained of 3 months of cough productive but no fevers no shortness of breath. Advised to hold valsartan and changed blood pressure medication Orders: Orders US renal BI Today I10 - Essential (primary) hypertension US renal doppler Today I10 - Essential (primary) hypertension XR chest 2V Today R05.9 - Cough, unspecified Medications: New amlodipine 5 mg PO DAILY 30 tabs 1RF R05.9 - Cough, unspecified Changed From carvedilol must administer with a meal/food 6.25 mg PO BID 60 tabs 2RF I10 - Essential (primary) hypertension To carvedilol must administer with a meal/food 12.5 mg PO BID 60 tabs 2RF I10 - Essential (primary) hypertension From carvedilol must administer with a meal/food 12.5 mg PO BID 60 tabs 2RF I10 - Essential (primary) hypertension To carvedilol must administer with a meal/food 6.25 mg PO BID 60 tabs 2RF I10 - Essential (primary) hypertension Discontinued valsartan Discontinued Reason: Doctor's Order 80 mg PO BID 90 days 180 tabs 3RF Coding Level of Care Code Est Pt Level 4 (54216) Diagnoses Hypertension I10 Anemia D64.9 Hypercholesteremia E78.00 Heart failure with reduced ejection fraction I50.20 Cardiomyopathy I42.9 Subclinical hypothyroidism E03.8 Type 2 diabetes mellitus with hyperglycemia E11.65 PAD (peripheral artery disease) I73.9 Cough R05.9 Additional Codes PHQ-9 - 31631 - PHQ-9 Billing: ([id number])
== END 2023-05-15 16:18 | disposition home or self-care (01) ==
PROVIDERS: PCP Internal Medicine; Visit Provider Internal Medicine
DX: I11.0 Hypertensive heart disease with heart failure (principal); I50.20 Unspecified systolic (congestive) heart failure; I42.9 Cardiomyopathy, unspecified; E11.65 Type 2 diabetes mellitus with hyperglycemia; R05.9 Cough, unspecified
CPT/HCPCS: 99214

== ENCOUNTER 2023-06-10 15:26 | Outpatient (AMB) | payer OTHER, SELFPAY ==
[2023-06-10 15:28] VITALS: BP 188/88; PULSE 58; O2SAT 99; BMI 29.0
--- NOTE | 2023-06-10 15:28 | A.OFFPC_ITS ---
Vital Signs 06/10/23 15:28 06/10/23 15:59 Height 5 ft 5 in Weight 174 lb BMI 29.0 BP 188/88 H 188/80 H Blood Pressure Location Lt brachial Lt brachial Position Sitting Sitting Pulse 58 Pulse Source Pulse Oximeter Pulse Oximetry (%) 99 Oxygen Delivery Method Room Air Intake Visit Reasons: HTN ,. DM Collection Systems Technician Required: No Accompanied by: Self / Same As Patient Allergies sacubitril [From Entresto] Allergy (Severe, Verified 06/10/23 15:49) Nausea and Vomiting fish derived [FISH] Allergy (Unknown, Verified 06/10/23 15:49) itchy,rash ferrous sulfate Allergy (Verified 06/10/23 15:49) Abdominal Pain valsartan Adverse Reaction (Intermediate, Verified 06/10/23 15:49) Cough terazosin Adverse Reaction (Verified 06/10/23 15:49) Diarrhea metformin Adverse Reaction (Unknown, Uncoded 06/10/23 15:49) mouth sore Medication List - Last Reconciled 06/10/23 by POOJA Macedo amlodipine 5 mg PO DAILY blood pressure monitor (Blood Pressure Kit) As directed carvedilol 6.25 mg PO BID cholecalciferol (vitamin D3) (Vitamin D3) 25 mcg PO DAILY empagliflozin 25 mg PO DAILY furosemide 20 mg PO DAILY glipizide 10 mg PO BID ketoconazole 2% 1 appl topical DAILY rosuvastatin 20 mg PO DAILY Tobacco use date assessed: 08/30/22 Dental Screening Dental Screen Date: 06/10/23 Did you have a dental visit in the last 12 months?: Yes Did you have a dental problem in the last 6 months where you did not have access to dental care?: No Was dental information given to patient?: Patient has dentist HPI HTN ,. DM HPI Details Patient is a 58-year-old female who presents today to follow-up hypertension and diabetes. Patient of Dr. Garcia, last visit 04/2023. Medical history significant for hypertension hypercholesterolemia, heart failure with reduced ejection fraction-followed by Dr. Alegria, hypothyroidism, diabetes type 2. Patient reports that she is compliant with medications and denies side effects. Reports blood pressures at home ranging between 160 and 180, yesterday her blood pressure was 204/72. Reports she takes Lasix every other day, reports she was told to take Lasix like this by her doctor. Patient will be having renal ultrasound due to hypertension 05/2023. Denies shortness of breath or chest pain. Does not check her blood sugars at home. [facility] Medical History Cough Subclinical hypothyroidism Tinea versicolor Hypothyroidism Vitamin D deficiency Hypercholesteremia Anemia PAD (peripheral artery disease) CHF (congestive heart failure) Pericardial effusion Acute dermatitis Murmur, cardiac Diabetes Hypertension Surgical History History of revascularization procedure of lower extremity S/P complete hysterectomy Family History Father Prostate cancer Mother Hypertension Sister Hypertension Brother No problems noted. 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 Vinh Garcia, Alicia Allred, Jordan Olvera and colleagues, with an educational mela from [employer]. Review of Systems Const Denies body aches, Denies chills, Denies fever(s) and Denies headache(s) Eyes Denies change in vision ENT Denies dizziness, Denies otalgia, Denies headache(s), Denies nasal discharge, Denies sinus pain and Denies sore throat Card Denies chest pain, Denies edema, Denies lightheadedness and Denies dyspnea Resp Denies cough, Denies dyspnea and Denies wheezing GI Denies abdominal pain Musc Denies myalgias Skin/Breast Denies rash Neuro Denies dizziness and Denies headache(s) Aller/Immun Denies wheezing Physical exam (Primary Care) Vital Signs: Last Vital Signs Pulse 58 06/10/23 15:28 BP 188/80 H 06/10/23 15:59 Pulse Ox 99 06/10/23 15:28 Oxygen Delivery Method Room Air 06/10/23 15:28 BMI result Body Mass Index 29.0 Tobacco/Smoking Status: Tobacco use Status Tobacco use date assessed 08/30/22 06/10/23 15:29 Patient Tobacco Use Status Never used Tobacco 06/10/23 15:29 Tobacco use type Cigarette 06/10/23 15:29 e-Cigarette/Vaping Use Never Used 06/10/23 15:29 Thrive Assessment: Date of Thrive Assessment Date Thrive assessed 08/30/22 06/10/23 15:29 Const General: cooperative and no acute distress Orientation/consciousness: patient oriented x3 HENMT Head: Yes normocephalic and Yes atraumatic Face and sinus: Yes sinuses nontender Mouth: oropharynx normal and moist mucous membranes Throat: Yes posterior oropharynx normal Eyes General: appearance normal, both eyes and all related structures Neck Neck: Yes normal visual inspection, Yes full ROM and Yes no lymphadenopathy Resp Effort & Inspection: normal respiratory effort and able to speak in complete sentences Auscultation: clear to auscultation bilaterally, no crackles, no rales, no rhonchi and no wheezes Cardio Rate: regular rate Rhythm: regular rhythm Heart sounds: S1 normal heart sound present and S2 normal heart sound present GI Palpation (GI): Soft to palpation, not firm, nontender, no guarding, not rigid and no hepatosplenomegaly Auscultation: normal bowel sounds Skin General skin exam: no rashes or lesions noted Neuro General: patient oriented x3 Gait exam (Neuro): Normal gait present Extrem General: Yes full ROM and No edema Assessment and Plan Assessment & Plan (1) Type 2 diabetes mellitus with hyperglycemia: Code(s): E11.65 - Type 2 diabetes mellitus with hyperglycemia Plan: A1c 10.3 03/2023, goal less than 7 Patient declined to start insulin Continue glipizide and empagliflozin Low-carbohydrate diet (2) Hypertension: Code(s): I10 - Essential (primary) hypertension Plan: Goal BP equal or less than 140/90 Blood pressure elevated - denies shortness of breath, headache, chest pain Increase amlodipine to 10 mg daily Continue carvedilol b.i.d. and Lasix every other day Reinforced low-sodium diet Continue to monitor blood pressures at home Keep appointment with Cardiology as scheduled (3) Hypercholesteremia: Code(s): E78.00 - Pure hypercholesterolemia, unspecified Plan: Continue rosuvastatin Low-cholesterol diet Plan Follow-up with PCP in 3 months Medications: New amlodipine 10 mg PO DAILY 30 tabs 1RF I10 - Essential (primary) hypertension Discontinued amlodipine Discontinued Reason: Doctor's Order 5 mg PO DAILY 30 tabs 1RF R05.9 - Cough, unspecified Coding Level of Care Code Est Pt Level 4 (51674) Diagnoses Type 2 diabetes mellitus with hyperglycemia E11.65 Hypertension I10 Hypercholesteremia E78.00
[2023-06-10 15:59] VITALS: BP 188/80
== END 2023-06-10 16:07 | disposition home or self-care (01) ==
PROVIDERS: PCP Internal Medicine; Visit Provider Nurse Practitioner Family
DX: E11.65 Type 2 diabetes mellitus with hyperglycemia (principal); I10 Essential (primary) hypertension; E78.00 Pure hypercholesterolemia, unspecified
CPT/HCPCS: 99214

== ENCOUNTER 2023-06-17 16:26 | Outpatient (REF) | payer OTHER, SELFPAY ==
--- NOTE | ~2023-06-17 | XR_ITS ---
EXAMINATION: XR CHEST CLINICAL INFORMATION: Cough COMPARISON: None available. TECHNIQUE: 2 views of the chest were obtained. FINDINGS: No significant abnormality is noted involving the heart, lungs, mediastinum, bony thorax or soft tissues. XR/XR chest 2V IMPRESSION: Unremarkable examination.
== END 2023-06-17 16:27 | disposition home or self-care (01) ==
LOC: HO.XRAY 16:26
PROVIDERS: PCP Internal Medicine; Visit Provider Internal Medicine
DX: R05.9 Cough, unspecified (principal)
CPT/HCPCS: 71046

== ENCOUNTER 2023-06-24 08:45 | Outpatient (REF) | payer OTHER, SELFPAY ==
--- NOTE | ~2023-06-24 | US_ITS ---
EXAMINATION: ULTRASOUND RENAL WITH DOPPLER CLINICAL INFORMATION: Hypertension. COMPARISON: None. TECHNIQUE: Real-time grayscale, color Doppler, and duplex Doppler evaluation of the kidneys and renal vasculature was performed. FINDINGS: RENAL MEASUREMENTS: Right: 9.3 x 4.0 x 5.5 cm (Sag x AP x TV) Left: 10.3 x 4.6 x 4.4 cm (Sag x AP x TV) The renal parenchyma appears normal. No hydronephrosis or nephrolithiasis. DOPPLER INTERROGATION: AORTA: Mid aorta: 90 cm/sec RIGHT MAIN RENAL ARTERY: Proximal: 115 cm/sec Mid: 131 cm/sec Distal: 48 cm/sec LEFT MAIN RENAL ARTERY: Proximal: 124 cm/sec Mid: 124 cm/sec Distal: 88 cm/sec RENAL-AORTIC RATIO (RAR): Right: 1.45 Left: 1.38 SEGMENTAL RESISTIVE INDICES: Right: Not well visualized due to bowel gas and body habitus ranging 0.77-0.82. Left: Not well visualized due to bowel gas and body habitus ranging 0.79-0.93. RENAL VEINS: Right: Patent with normal waveform. Left: Patent with normal waveform. US/US renal BI IMPRESSION: Normal appearance of the kidneys. No evidence of hemodynamically significant renal artery stenosis. Limited visualization of the intrarenal arteries with resistive indices ranging 0.77-0.82 on the right and 0.79-0.93 on the left. These values may relate to chronic kidney disease. Recommend clinical correlation. Please note that these may be erroneously elevated due to poor visualization.
--- NOTE | ~2023-06-24 | US_ITS ---
EXAMINATION: ULTRASOUND RENAL WITH DOPPLER CLINICAL INFORMATION: Hypertension. COMPARISON: None. TECHNIQUE: Real-time grayscale, color Doppler, and duplex Doppler evaluation of the kidneys and renal vasculature was performed. FINDINGS: RENAL MEASUREMENTS: Right: 9.3 x 4.0 x 5.5 cm (Sag x AP x TV) Left: 10.3 x 4.6 x 4.4 cm (Sag x AP x TV) The renal parenchyma appears normal. No hydronephrosis or nephrolithiasis. DOPPLER INTERROGATION: AORTA: Mid aorta: 90 cm/sec RIGHT MAIN RENAL ARTERY: Proximal: 115 cm/sec Mid: 131 cm/sec Distal: 48 cm/sec LEFT MAIN RENAL ARTERY: Proximal: 124 cm/sec Mid: 124 cm/sec Distal: 88 cm/sec RENAL-AORTIC RATIO (RAR): Right: 1.45 Left: 1.38 SEGMENTAL RESISTIVE INDICES: Right: Not well visualized due to bowel gas and body habitus ranging 0.77-0.82. Left: Not well visualized due to bowel gas and body habitus ranging 0.79-0.93. RENAL VEINS: Right: Patent with normal waveform. Left: Patent with normal waveform. US/US renal doppler IMPRESSION: Normal appearance of the kidneys. No evidence of hemodynamically significant renal artery stenosis. Limited visualization of the intrarenal arteries with resistive indices ranging 0.77-0.82 on the right and 0.79-0.93 on the left. These values may relate to chronic kidney disease. Recommend clinical correlation. Please note that these may be erroneously elevated due to poor visualization.
== END 2023-06-24 08:46 | disposition home or self-care (01) ==
LOC: HO.US 08:45
PROVIDERS: PCP Internal Medicine; Visit Provider Internal Medicine
DX: I10 Essential (primary) hypertension (principal)
CPT/HCPCS: 76775; 93975

== ENCOUNTER → 2023-07-30 15:04 | Outpatient (REF) | payer OTHER, SELFPAY ==
--- NOTE | 2023-07-30 15:07 | CA_ITS ---
Transthoracic Echocardiogram Patient (Last, First, Middle): Vesta Cronin A Gender: Female Date of : 1965 Age: 58 Procedure Date: 07/30/2023 Procedure Type: Transthoracic Echocardiogram Location: OP Height: 167.64 cm Weight: 77.11 kg BSA: 1.87 m2 Heart Rate: bpm BP: 180 / 82 mmHg Contemporary Or Modern Dancer: CHRISTINA Referring MD: Rolando Alegria MD Steam Table Worker: Rolando Alegria MD Symptoms: I50.20 - Unspecified systolic (congestive) heart failure Study Quality: Adequate ECG Rhythm: Sinus Conclusions: - 1. Normal LV ejection fraction 55-60% with moderate LVH and grade 3 diastolic dysfunction 2. Normal cardiac valvular Doppler 3. Upper limits of normal RV systolic pressure 4. Small pericardial effusion near the LV Findings Left Ventricle Normal left ventricular size and systolic function. There is moderately increased left ventricular wall thickness. The visually estimated ejection fraction is between 55-60%. Spectral Doppler is indicative of a restrictive filling pattern. E/E prime ratio is >15, consistent with elevated filling pressures. Evidence suggests grade III (severe) diastolic dysfunction. Right Ventricle Normal right ventricular cavity size and systolic function. Atria The left atrium is mildly dilated. There is no evidence of interatrial shunt. The right atrium is normal in size. Aortic Valve Normal aortic valve structure and function. There is mild calcification of the aortic valve. There is no aortic valve stenosis. There is no aortic valve regurgitation. Mitral Valve There is mild anterior and posterior mitral leaflet thickening. There is trace mitral valve regurgitation. There is no mitral valve stenosis. Pulmonic Valve The pulmonic valve is likely normal. There is trace pulmonic valve regurgitation. Tricuspid Valve Normal tricuspid valve structure. There is mild tricuspid valve regurgitation. The right ventricular systolic pressure is 38 mmHg. Normal right atrial pressure. There is no evidence of pulmonary hypertension. Great Vessels All visible segments of the aorta are normal in size. The pulmonary artery was not well visualized. Venous The inferior vena cava is normal in size and collapses greater than 50% with inspiration. Pericardium/Pleural There is a small loculated pericardial effusion overlying the left ventricle. Prior Study Comparison Changes noted compared to prior study dated: 01/03/2023. LV systolic function is normalized. Delay in reporting due to technical issues Measurements 2D Linear Measurements IVSd: 1.48 0.6-0.9/0.6-1.0 cm LVIDd: 4.20 3.9-5.3/4.2-5.9 cm LVIDd Index: 2.25 2.4-3.2/2.2-3.1 cm/m2 LVIDs: 3.27 2.0-3.6 cm LVPWd: 1.39 0.7-1.1 cm LA Diam: 4.10 2.7-3.8/3.0-4.0 cm LAIDs Index: 2.19 1.5-2.3 cm/m2 LV Mass: 290.48 67-162/88-224 g LV Mass Index: 155.34 43-95/49-115 g/m2 LVOT Diam: 1.80 3.0+(-)1.3 cm Mitral Valve MV Pk E: 1.06 MV PK A: 0.35 MV Decel Time: 157.00 E/A: 3.00 E'Lateral: 5.00 E'Medial: 4.03 E/E' Med: 26.30 E/E' Lat: 21.20 PHT: 46.00 MVA PHT: 4.78 Decel Limestone: 6.76 Aortic Valve AoV Pk Luiz: 1.37 AoV Mn Luiz: 1.04 AoV VTI: 0.39 AoV Pk Grad: 8.00 Aov Mn Grad: 5.00 GARRICK Cont.VTI: 1.48 LVOT LVOT Pk Luiz: 0.90 LVOT Mn Luiz: 0.57 LVOT VTI: 0.23 LVOT Pk Grad: 3.00 LVOT Mn Grad: 2.00 LVOT Diam: 1.80 LVOT Area: 2.54 Diastolic Function MV Pk E: 1.06 MV Pk A: 0.35 E/A: 3.00 E'Medial: 4.03 E/E' Med: 26.30 E' Laterial: 5.00 E/E' Lat: 21.20 Right Ventricle TAPSE (mm): 19.40 TVS' Luiz: 9.03 Tricuspid Valve TR Pk Luiz: 2.94 TR Pk Grad: 35.00 RA Press: 3.00 RVSP: 38.00 Great Vessels Aorta Sinus of Valsalva: 2.59 2.0-3.[address] Ridge: 2.45 1.7-3.4 cm Ao Asc: 3.30 2.1-3.4 cm Ao Arch: 2.60 Updated in Other Vendor System with Status of Final Rolando Alegria MD electronically signed on 08/01/2023 8:58:21 AM with status of Final
== END ==
LOC: HO.CARD 15:04
PROVIDERS: PCP Internal Medicine; Visit Provider Internal Medicine Cardiovascular Disease
DX: I50.20 Unspecified systolic (congestive) heart failure (principal)
CPT/HCPCS: 93306

== ENCOUNTER → 2023-07-30 15:07 | Outpatient (BNV) | payer OTHER, SELFPAY | PROVIDERS: PCP Internal Medicine; Visit Provider Internal Medicine Cardiovascular Disease | DX: I36.1 Nonrheumatic tricuspid (valve) insufficiency (principal); I50.20 Unspecified systolic (congestive) heart failure | CPT/HCPCS: 93306 ==

== ENCOUNTER 2023-08-19 14:48 | Outpatient (AMB) | payer OTHER, SELFPAY ==
[2023-08-19 14:49] VITALS: BP 168/88; PULSE 54; BMI 29.7
--- NOTE | 2023-08-19 14:49 | A.OFFVIS_ITS ---
Intake Vital Signs 08/19/23 14:49 Height 5 ft 5 in Weight 178 lb 9.191 oz BMI 29.7 BP 168/88 H Blood Pressure Location Lt brachial Position Sitting Pulse 54 Intake Visit Reasons: 6 month fu Intake Note: 6 month follow-up with ekg feeling good Steam Box Operator Required: No Allergies sacubitril [From Entresto] Allergy (Severe, Verified 06/10/23 15:49) Nausea and Vomiting fish derived [FISH] Allergy (Unknown, Verified 06/10/23 15:49) itchy,rash ferrous sulfate Allergy (Verified 06/10/23 15:49) Abdominal Pain valsartan Adverse Reaction (Intermediate, Verified 06/10/23 15:49) Cough terazosin Adverse Reaction (Verified 06/10/23 15:49) Diarrhea metformin Adverse Reaction (Unknown, Uncoded 06/10/23 15:49) mouth sore Medication List - Last Reconciled 08/19/23 by Rolando Alegria MD amlodipine 10 mg PO DAILY blood pressure monitor (Blood Pressure Kit) As directed carvedilol 6.25 mg PO BID cholecalciferol (vitamin D3) (Vitamin D3) 25 mcg PO DAILY empagliflozin 25 mg PO DAILY furosemide 20 mg PO DAILY glipizide 10 mg PO BID ketoconazole 2% 1 appl topical DAILY rosuvastatin 20 mg PO DAILY HPI HPI Comments History of Present Illness Details 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 She is doing well from heart failure perspective. Her blood pressure remains consistently elevated. She said blood pressure can often be in 160. She says she has been very compliant with the medications. She could not tolerate lisinopril therapy due to cough and throat swelling. Her recent echocardiogram shows normal LV ejection fraction with moderate LVH with grade 3 diastolic dysfunction. She has no orthopnea, PND, leg edema. She says she is very compliant with the medications. She is breathing better. However she is concerned that her blood pressure is still elevated and she wants to know why a blood pressure still elevated. She says she participate in good diet watches salt in her diet and does not overeat. [facility] Medical History (HFpEF) heart failure with preserved ejection fraction Cough Subclinical hypothyroidism Tinea versicolor Hypothyroidism Vitamin D deficiency Hypercholesteremia Anemia PAD (peripheral artery disease) CHF (congestive heart failure) Pericardial effusion Acute dermatitis Murmur, cardiac Diabetes Hypertension Surgical History History of revascularization procedure of lower extremity S/P complete hysterectomy Family History Father Prostate cancer Mother Hypertension Sister Hypertension Brother No problems noted. 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 Hearing needs: No Vision needs: No Review of Systems Const Denies chills, Denies fatigue, Denies fever(s), Denies frequent falls, Denies weakness, Denies weight gain and Denies weight loss ENT Denies dizziness Card Denies chest pain, Denies leg edema, Denies lightheadedness, Denies palpitations, Denies dyspnea, Denies dyspnea on exertion, Denies orthopnea and Denies other (loss of consciousness) Resp Denies cough, Denies dyspnea and Denies dyspnea on exertion GI Denies hematochezia and Denies change in stool character Musc Denies abnormal gait, Denies muscle weakness, Denies numbness, Denies radiating pain into limb and Denies tingling Neuro Denies Abnormal speech present, Denies abnormal gait, Denies dizziness, Denies frequent falls, Denies numbness, Denies tingling and Denies weakness Endo Denies fatigue and Denies palpitations Physical Exam Vital Signs: Last Vital Signs Pulse 54 08/19/23 14:49 BP 168/88 H 08/19/23 14:49 BMI result Body Mass Index 29.7 Const General: cooperative, comfortable, no acute distress, alert, awake and well groomed Nutritional Appearance: overweight Orientation/consciousness: patient oriented x3 Limitations: no limitations HEENT Head: Yes normocephalic and Yes atraumatic Neck Neck: Yes trachea midline, Yes supple and Yes no JVD Resp Effort & Inspection: normal respiratory effort Auscultation: clear to auscultation bilaterally Cardio Jugular venous distension: no JVD Rate: regular rate Rhythm: regular rhythm Heart sounds: S1 normal heart sound present, S2 normal heart sound present, no click, no gallops, no murmurs and no rubs GI Auscultation: normal bowel sounds Skin General skin exam: no rashes or lesions noted Neuro General: patient oriented x3 and no focal motor deficits Speech: No Abnormal speech present Extrem General: No clubbing, No cyanosis and Yes edema Psych Appearance: grossly normal Office Procedures EKG Details: EKG shows normal sinus rhythm with LVH with repolarization abnormality [id number], Complete Assessment & Plan Assessment & Plan (1) Uncontrolled hypertension: Code(s): I10 - Essential (primary) hypertension Plan: Uncontrolled hypertension this elderly woman with PVD. Renal artery stenosis needs to be ruled out. Also sleep apnea needs to be ruled out. Will suggest a home sleep study as well as renal duplex. Further treatment based on the findings. Importance of good blood pressure control was discussed. She says she is trying to improve her diet. She watches the salt in her diet. Continue current carvedilol as well as amlodipine. Can not further maximize carvedilol due to low heart rate. Will add Aldactone 25 mg to her regimen. Follow-up basic metabolic profile and BNP in 1 weeks time. (2) (HFpEF) heart failure with preserved ejection fraction: Code(s): I50.30 - Unspecified diastolic (congestive) heart failure Plan: Heart failure preserved ejection fraction, clinically euvolemic and well compensated. Has done well with medical therapy. Importance of good medical therapy was discussed. She says she understands very well. She is currently on low-dose furosemide therapy. Continue the same. Daily weight monitoring avoidance of salt loading was discussed additional diuretics as need be. Aggressive control blood pressure as above. Follow up in the clinic in 6 weeks time, sooner p.r.n.. Thank you for allowing me to partake in the care Orders: Orders Basic Metabolic Panel 2 Weeks I42.9 - Cardiomyopathy, unspecified B Type Natriuretic Peptide 2 Weeks I42.9 - Cardiomyopathy, unspecified US renal doppler 08/19/23 I10 - Essential (primary) hypertension RT home sleep study 08/19/23 I10 - Essential (primary) hypertension, R40.0 - Somnolence Medications: New spironolactone (Aldactone) 25 mg PO DAILY 30 tabs 5RF Coding Level of Care Code Est Pt Level 4 (05231) Diagnoses Uncontrolled hypertension I10 (HFpEF) heart failure with preserved ejection fraction I50.30 CPT Codes EKG - CPT: [id number], Complete ([id number])
== END 2023-08-19 15:41 | disposition home or self-care (01) ==
PROVIDERS: PCP Internal Medicine; Visit Provider Internal Medicine Cardiovascular Disease
DX: I10 Essential (primary) hypertension (principal); I50.30 Unspecified diastolic (congestive) heart failure
CPT/HCPCS: 93010; 99214

== ENCOUNTER → 2023-08-19 14:48 | Outpatient (BNVA) | payer OTHER, SELFPAY | PROVIDERS: PCP Internal Medicine; Visit Provider Internal Medicine Cardiovascular Disease | DX: I11.0 Hypertensive heart disease with heart failure (principal); I50.30 Unspecified diastolic (congestive) heart failure; Z79.899 Other long term (current) drug therapy | CPT/HCPCS: 93005 ==

== ENCOUNTER 2023-09-04 15:52 | Outpatient (REF) | payer OTHER, SELFPAY ==
[2023-09-04 17:56] LABS: Anion Gap 14 (12-20); Blood Urea Nitrogen 36 mg/dL (9-16); Calcium 10.1 mg/dL (8.4-10.2); Carbon Dioxide 26 mmol/L (22-29); Chloride 100 mmol/L (96-108); Estimated Glomerular Filt Rate 33; Glucose Random 299 mg/dL (60-115); Potassium 4.7 mmol/L (3.3-5.1); Sodium 135 mmol/L (135-145)
[2023-09-04 18:05] LABS: B Type Natriuretic Peptide 130 pg/mL (<100)
== END 2023-09-04 15:53 | disposition home or self-care (01) ==
LOC: HO.LAB 15:52
PROVIDERS: PCP Internal Medicine; Visit Provider Internal Medicine Cardiovascular Disease
DX: I42.9 Cardiomyopathy, unspecified (principal)
CPT/HCPCS: 36415; 80048; 83880

== ENCOUNTER 2023-09-09 15:29 | Outpatient (AMB) | payer OTHER, SELFPAY ==
[2023-09-09 15:50] VITALS: BP 192/82; PULSE 77; O2SAT 98; BMI 28.6
--- NOTE | 2023-09-09 15:50 | MHC.PC.OV ---
Vital Signs 09/09/23 15:50 Height 5 ft 5 in Weight 172 lb BMI 28.6 BP 192/82 H Blood Pressure Location Lt brachial Position Sitting Pulse 77 Pulse Source Pulse Oximeter Pulse Oximetry (%) 98 Oxygen Delivery Method Room Air Intake Visit Reasons: HTN, DM Allergies sacubitril [From Entresto] Allergy (Severe, Verified 09/09/23 15:50) Nausea and Vomiting fish derived [FISH] Allergy (Unknown, Verified 09/09/23 15:50) itchy,rash ferrous sulfate Allergy (Verified 09/09/23 15:50) Abdominal Pain valsartan Adverse Reaction (Intermediate, Verified 09/09/23 15:50) Cough terazosin Adverse Reaction (Verified 09/09/23 15:50) Diarrhea metformin Adverse Reaction (Unknown, Uncoded 09/09/23 15:50) mouth sore Medication List - Last Reconciled 09/09/23 by Anibal Garcia MD blood pressure monitor (Blood Pressure Kit) As directed carvedilol 6.25 mg PO BID cholecalciferol (vitamin D3) (Vitamin D3) 25 mcg PO DAILY empagliflozin 25 mg PO DAILY furosemide 20 mg PO 3XW glipizide 10 mg PO BID hydralazine 10 mg PO TID ketoconazole 2% 1 appl topical DAILY nifedipine ER 30 mg PO DAILY rosuvastatin 20 mg PO DAILY spironolactone (Aldactone) 25 mg PO DAILY Tobacco use date assessed: 09/09/23 Dental Screening Dental Screen Date: 09/09/23 Did you have a dental visit in the last 12 months?: Yes Did you have a dental problem in the last 6 months where you did not have access to dental care?: No Was dental information given to patient?: Patient has dentist HPI HTN, DM HPI Details . 58-year-old overweight sister with hypertension hypercholesterolemia congestive heart failure with cardiomyopathy diabetes mellitus peripheral arterial disease coming in for follow-up. Last seen in April 2023. Review of the notes in July was seen by Cardiology recent echocardiogram normal left ventricular ejection fraction moderate LVH grade 3 diastolic dysfunction. Cardiology notes expresses concern about renal artery stenosis and obstructive sleep apnea patient presently on carvedilol and amlodipine advised to add Aldactone 25 mg once a day on low-dose furosemide daily weights July 2023 echocardiogram. Normal LV ejection fraction 55-60% with moderate LVH and grade 3 diastolic dysfunction 2. Normal cardiac valvular Doppler 3. Upper limits of normal RV systolic pressure 4. Small pericardial effusion near the LV Sleep study test coming october 02, 2023 [facility] is hesitant with any injections and so [facility] Medical History (HFpEF) heart failure with preserved ejection fraction Cough Subclinical hypothyroidism Tinea versicolor Hypothyroidism Vitamin D deficiency Hypercholesteremia Anemia PAD (peripheral artery disease) CHF (congestive heart failure) Pericardial effusion Acute dermatitis Murmur, cardiac Diabetes Hypertension Surgical History History of revascularization procedure of lower extremity S/P complete hysterectomy Family History Father Prostate cancer Mother Hypertension Sister Hypertension Brother No problems noted. 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 Hearing needs: No Vision needs: Yes Questionnaire PHQ-9 Over the last 2 weeks, how often have you been bothered by any of the following problems? 1. Little interest or pleasure in doing things: not at all 2. Feeling down, depressed, or hopeless: not at all 3. Trouble falling or staying asleep, or sleeping too much: not at all 4. Feeling tired or having little energy: not at all 5. Poor appetite or overeating: not at all 6. Feeling bad about yourself - or that you are a failure or have let yourself or your family down: not at all 7. Trouble concentrating on things, such as reading the newspaper or watching television: not at all 8. Moving or speaking so slowly that other people could have noticed. Or the opposite - being so fidgety or restless that you have been moving around a lot more than usual: not at all 9. Thoughts that you would be better off or of hurting yourself in some way: not at all Total score: 0 Depression Screening Interpretation: Negative Depression Screening Done: Yes Source: Developed by Drs. Vinh Garcia, AliciaJordan Arguello and colleagues, with an educational mela from [employer]. Thrive Questionnaire Date Thrive assessed: 09/09/23 I am a: Patient What is your living situation today?: I have a steady place to live Within the past 12 months, did the food you bought not last and you didn't have the money to get more?: Never true Within the past 12 months, did you worry whether your food would run out before you got money to buy more?: Never true Do you have trouble paying for medicines?: No Do you have trouble getting transportation to medical appointments?: No Do you have trouble paying your heating and electricity bill?: No Do you have trouble taking care of your child, family member or friend?: No Do you have trouble with day-to-day activities such as bathing, preparing meals, shopping, managing finances, etc.?: No Are you currently unemployed and looking for a job?: No Are you interested in more education?: No Currently or been in a relationship where the following occur: no concerns reported THRIVE Score: 0 AUDIT C Alcohol Use Questionnaire (AUDIT-C) 1. How often do you have a drink containing alcohol?: Never Total Score: 0 FABIO-7 AMB Questionnaire FABIO-7 Date FABIO - 7 assessed: 09/09/23 Feeling nervous, anxious, or on edge: 0 = Not at all Not being able to stop or control worryin = Not at all Worrying too much about different things: 0 = Not at all Trouble relaxin = Not at all Being so restless that it is hard to sit still: 0 = Not at all Becoming easily annoyed or irritable: 0 = Not at all Feeling afraid as if something awful might happen: 0 = Not at all Total FABIO-7 score (0-4 normal; 5-9 mild; 10-14 moderate; 15-21 severe): 0 Source: Developed by Drs. Vinh Garcia, Jordan Ford and colleagues, with an educational mela from [employer]. Physical exam (Primary Care) Vital Signs: Last Vital Signs Pulse 77 09/09/23 15:50 BP 192/82 H 09/09/23 15:50 Pulse Ox 98 09/09/23 15:50 Oxygen Delivery Method Room Air 09/09/23 15:50 BMI result Body Mass Index 28.6 Tobacco/Smoking Status: Tobacco use Status Tobacco use date assessed 09/09/23 09/09/23 15:52 Patient Tobacco Use Status Never used Tobacco 09/09/23 15:52 Tobacco use type Cigarette 09/09/23 15:52 e-Cigarette/Vaping Use Never Used 09/09/23 15:52 PHQ-9: PHQ-9 Score PHQ-9: Total score 0 09/09/23 16:14 Depression Screening Interpretation: Negative Thrive Assessment: Date of Thrive Assessment Date Thrive assessed 09/09/23 09/09/23 15:52 Currently or been in a relationship where the following occur: no concerns reported Const General: alert; No acute distress Eyes Conjunctivae: conjunctivae normal Resp Auscultation: clear to auscultation bilaterally Cardio Rate: regular rate Rhythm: regular rhythm GI Inspection: Yes normal to inspection Extrem General: Yes normal to inspection and No edema Results AMB Hemoglobin A1c AMB Hemoglobin A1c 11.7 % Last Edit by Marti Perez CMA on 09/09/23 16:14 Results Reviewed Results Reviewed: Laboratory Last Values Hgb A1c (Clinic) 11.7 % (4.0-6.0) H 09/09/23 15:52 Assessment and Plan Assessment & Plan (1) Type 2 diabetes mellitus with hyperglycemia: Code(s): E11.65 - Type 2 diabetes mellitus with hyperglycemia Plan: Decrease the amount of carbohydrate intake, pasta, bread, rice and potatoes are all sugar and that is aside from all the sweet stuff, remember that fruits are good but they are Sweet also. Hemoglobin A1c goal of less than 6.5. Patient is on Jardiance 25 mg once a day glipizide 10 mg twice a day. AIC still very high - will refer to endo (2) Cardiomyopathy: Code(s): I42.9 - Cardiomyopathy, unspecified Plan: Patient met with Cardiology added Aldactone. (3) Uncontrolled hypertension: Code(s): I10 - Essential (primary) hypertension Plan: Patient on Aldactone, carvedilol 6.25 mg twice a day and amlodipine 10 mg once a day patient had cough from valsartan.. amlodipine states making her pay a lot so will change to nifedipine but will add hydralazine 10 mg TID (4) (HFpEF) heart failure with preserved ejection fraction: Code(s): I50.30 - Unspecified diastolic (congestive) heart failure Plan: Weigh daily continue with furosemide and spironolactone (5) Hypercholesteremia: Code(s): E78.00 - Pure hypercholesterolemia, unspecified Plan: Avoid fried foods, chicken skin, eggs, butter margarine, pastries and meat. Be it pork or beef they have a lot of cholesterol March 2023 last blood work LDL goal of less than 100 and triglyceride of less than 150 Orders: Orders AMB Hemoglobin A1c Today Z13.9 - Encounter for screening, unspecified Referrals Endocrinology Referral E11.65 - Type 2 diabetes mellitus with hyperglycemia Medications: New nifedipine ER 30 mg PO DAILY 30 tabs 4RF I10 - Essential (primary) hypertension hydralazine 10 mg PO TID 90 tabs 1RF I50.30 - Unspecified diastolic (congestive) heart failure triamcinolone acetonide 0.1% 1 appl topical BID 30 grams 0RF I10 - Essential (primary) hypertension Discontinued amlodipine Discontinued Reason: Insurance Denied 10 mg PO DAILY 30 tabs 1RF I10 - Essential (primary) hypertension Coding Level of Care Code Est Pt Level 4 (87282) Diagnoses Type 2 diabetes mellitus with hyperglycemia E11.65 Cardiomyopathy I42.9 Uncontrolled hypertension I10 (HFpEF) heart failure with preserved ejection fraction I50.30 Hypercholesteremia E78.00 Additional Codes PHQ-9 - 50433 - PHQ-9 Billing: ([id number])
== END 2023-09-09 16:41 | disposition home or self-care (01) ==
PROVIDERS: PCP Internal Medicine; Visit Provider Internal Medicine
DX: E11.65 Type 2 diabetes mellitus with hyperglycemia (principal); I42.9 Cardiomyopathy, unspecified; I11.0 Hypertensive heart disease with heart failure; I50.30 Unspecified diastolic (congestive) heart failure; E78.00 Pure hypercholesterolemia, unspecified
CPT/HCPCS: 83036; 99214

== ENCOUNTER → 2023-10-01 15:48 | Outpatient (REF) | payer OTHER, SELFPAY | LOC: HO.SL 15:48 | PROVIDERS: PCP Internal Medicine; Visit Provider Internal Medicine Cardiovascular Disease | DX: R06.83 Snoring (principal); I10 Essential (primary) hypertension; R40.0 Somnolence | CPT/HCPCS: 95806 ==

== ENCOUNTER → 2023-10-01 16:04 | Outpatient (BNV) | payer OTHER, SELFPAY | PROVIDERS: PCP Internal Medicine; Visit Provider Internal Medicine | DX: R06.83 Snoring (principal); R40.0 Somnolence | CPT/HCPCS: 95806 ==

== ENCOUNTER 2023-10-27 15:15 | Outpatient (AMB) | payer OTHER, SELFPAY ==
[2023-10-27 15:18] VITALS: BP 150/84; PULSE 68; BMI 29.3
--- NOTE | 2023-10-27 15:18 | A.OFFVIS_ITS ---
Vital Signs 10/27/23 15:18 Height 5 ft 5 in Weight 176 lb 5.917 oz BMI 29.3 BP 150/84 H Blood Pressure Location Lt brachial Position Sitting Pulse 68 Intake Visit Reasons: 2 mth f/up Intake Note: 2 month follow-up c/o leg pain if any pressure it on them Professional Healthcare Representative Required: No Allergies sacubitril [From Entresto] Allergy (Severe, Verified 09/09/23 15:50) Nausea and Vomiting fish derived [FISH] Allergy (Unknown, Verified 09/09/23 15:50) itchy,rash ferrous sulfate Allergy (Verified 09/09/23 15:50) Abdominal Pain valsartan Adverse Reaction (Intermediate, Verified 09/09/23 15:50) Cough terazosin Adverse Reaction (Verified 09/09/23 15:50) Diarrhea metformin Adverse Reaction (Unknown, Uncoded 09/09/23 15:50) mouth sore Medication List - Last Reconciled 10/27/23 by Rolando Alegria MD blood pressure monitor (Blood Pressure Kit) As directed carvedilol 6.25 mg PO BID cholecalciferol (vitamin D3) (Vitamin D3) 25 mcg PO DAILY furosemide 20 mg PO Q OTHER DAY glipizide 10 mg PO BID hydralazine 10 mg PO TID ketoconazole 2% 1 appl topical DAILY nifedipine ER 30 mg PO DAILY rosuvastatin 20 mg PO DAILY spironolactone (Aldactone) 25 mg PO DAILY triamcinolone acetonide 0.1% 1 appl topical BID HPI Comments Details: 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 Recordings of blood pressures still so elevated blood pressure and some of the blood pressure readings are up to systolic 190 and 210. She has not had any progressive heart failure symptoms. Continues to have symptoms of claudication in her calves when walking very long distance. Denies any exertional chest pain. No orthopnea, PND, leg edema. Watches the salt in her diet. She stopped taking her Jardiance as per insurance letter. Unclear as to why. [facility] Medical History (Updated 10/27/23 @ 15:56 by Rolando Alegria MD) Heart failure with reduced ejection fraction (HFpEF) heart failure with preserved ejection fraction Cough Subclinical hypothyroidism Tinea versicolor Hypothyroidism Vitamin D deficiency Hypercholesteremia Anemia PAD (peripheral artery disease) CHF (congestive heart failure) Pericardial effusion Acute dermatitis Murmur, cardiac Diabetes Hypertension Surgical History History of revascularization procedure of lower extremity S/P complete hysterectomy Family History Father Prostate cancer Mother Hypertension Sister Hypertension Brother No problems noted. 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 Hearing needs: No Vision needs: Yes Review of Systems Const Denies chills, Denies fatigue, Denies fever(s), Denies frequent falls, Denies weakness, Denies weight gain and Denies weight loss ENT Denies dizziness Card Denies chest pain, Denies leg edema, Denies lightheadedness, Denies palpitations, Denies dyspnea, Denies dyspnea on exertion, Denies orthopnea and Denies other (loss of consciousness) Resp Denies cough, Denies dyspnea and Denies dyspnea on exertion GI Denies hematochezia and Denies change in stool character Musc Denies abnormal gait, Denies muscle weakness, Denies numbness, Denies radiating pain into limb and Denies tingling Neuro Denies Abnormal speech present, Denies abnormal gait, Denies dizziness, Denies frequent falls, Denies numbness, Denies tingling and Denies weakness Endo Denies fatigue and Denies palpitations Physical Exam Vital Signs: Last Vital Signs Pulse 68 10/27/23 15:18 BP 150/84 H 10/27/23 15:18 BMI result Body Mass Index 29.3 Const General: cooperative, comfortable, no acute distress, alert, awake and well groomed Nutritional Appearance: overweight Orientation/consciousness: patient oriented x3 Limitations: no limitations HEENT Head: Yes normocephalic and Yes atraumatic Neck Neck: Yes trachea midline, Yes supple and Yes no JVD Resp Effort & Inspection: normal respiratory effort Auscultation: clear to auscultation bilaterally Cardio Jugular venous distension: no JVD Rate: regular rate Rhythm: regular rhythm Heart sounds: S1 normal heart sound present, S2 normal heart sound present, no click, no gallops, no murmurs and no rubs GI Auscultation: normal bowel sounds Skin General skin exam: no rashes or lesions noted Neuro General: patient oriented x3 and no focal motor deficits Speech: No Abnormal speech present Extrem General: No clubbing, No cyanosis and Yes edema Psych Appearance: grossly normal Assessment & Plan Assessment & Plan (1) (HFpEF) heart failure with preserved ejection fraction: Code(s): I50.30 - Unspecified diastolic (congestive) heart failure Category: Medical Plan: Heart failure preserved ejection fraction related to hypertensive heart disease. Clinically appears much improved with current diuretic dose. Daily weight monitoring avoidance of salt loading was discussed. Continue current diuretic regimen. Additional diuretics as need be. Continue aggressive blood pressure control. This is not well optimized. See below. Management of heart failure was discussed in details. Importance of regular physical activity was discussed. She understands and agrees. There is no evidence of myocardial ischemia. We discussed the role of Jardiance therapy although currently she says insurance has stopped providing her with a Jardiance. (2) Uncontrolled hypertension: Code(s): I10 - Essential (primary) hypertension Category: Medical Plan: High blood pressure still remains uncontrolled. Will further uptitrate carvedilol to 12.5 mg b.i.d. and change hydralazine to 20 mg b.i.d. for better compliance. Advised to monitor blood pressure at home maintain a log. Continue nifedipine therapy. Low-salt diet was discussed. Stress mitigation strategies were discussed. Will follow up in the clinic in 6 weeks time, sooner p.r.n.. Thank you for allowing me to partake in the care Medications: New hydralazine 20 mg (2 x 10 mg) PO BID 120 tabs 5RF carvedilol (Coreg) must administer with a meal/food 12.5 mg PO BID 60 tabs 5RF Changed From furosemide 20 mg PO 3XW 90 tabs 3RF I50.20 - Unspecified systolic (congestive) heart failure To furosemide 20 mg PO Q OTHER DAY I50.20 - Unspecified systolic (congestive) heart failure Discontinued carvedilol Discontinued Reason: Doctor's Order 6.25 mg PO BID 180 tabs 0RF I10 - Essential (primary) hypertension hydralazine Discontinued Reason: Doctor's Order 10 mg PO TID 90 tabs 1RF I50.30 - Unspecified diastolic (congestive) heart failure Coding Level of Care Code Est Pt Level 4 (66108) Diagnoses (HFpEF) heart failure with preserved ejection fraction I50.30 Uncontrolled hypertension I10
== END 2023-10-27 15:57 | disposition home or self-care (01) ==
PROVIDERS: PCP Internal Medicine; Visit Provider Internal Medicine Cardiovascular Disease
DX: I50.30 Unspecified diastolic (congestive) heart failure (principal); I10 Essential (primary) hypertension
CPT/HCPCS: 99214

== ENCOUNTER → 2023-10-27 15:15 | Outpatient (BNVA) | payer OTHER, SELFPAY | PROVIDERS: PCP Internal Medicine; Visit Provider Internal Medicine Cardiovascular Disease ==

== ENCOUNTER 2023-11-11 15:49 | Outpatient (AMB) | payer OTHER, SELFPAY ==
--- NOTE | 2023-11-11 15:56 | MHC.PC.OV ---
Vital Signs 11/11/23 15:57 Height 5 ft 5 in Weight 177 lb BMI 29.5 BP 164/76 H Blood Pressure Location Lt brachial Position Sitting Pulse 64 Pulse Source Pulse Oximeter Pulse Oximetry (%) 98 Oxygen Delivery Method Room Air Intake Visit Reasons: HTN , DM [employer]raw[employer] Boatswain Required: No Allergies sacubitril [From Entresto] Allergy (Severe, Verified 11/11/23 15:57) Nausea and Vomiting fish derived [FISH] Allergy (Unknown, Verified 11/11/23 15:57) itchy,rash ferrous sulfate Allergy (Verified 11/11/23 15:57) Abdominal Pain valsartan Adverse Reaction (Intermediate, Verified 11/11/23 15:57) Cough terazosin Adverse Reaction (Verified 11/11/23 15:57) Diarrhea metformin Adverse Reaction (Unknown, Uncoded 11/11/23 15:57) mouth sore Tobacco use date assessed: 11/11/23 Dental Screening Dental Screen Date: 09/09/23 HPI HTN , DM HPI Details 58-year-old overweight female with an uncontrolled diabetes mellitus cardiomyopathy uncontrolled hypertension congestive heart failure in hypercholesterolemia last seen in August 2023. Review of the notes was seen by Cardiology in October 26 elevated blood pressure heart failure preserved ejection fraction related to hypertensive heart disease was prescribed Jardiance but insurance noncoverage. Increase carvedilol 12.5 mg twice a day and change hydralazine to 20 mg twice a day continue with nifedipine patient had a sleep study done also 10/01/2023 negative. PAtient saw the doctor in [place]- laser done and state cataracts [facility] Medical History (Updated 10/27/23 @ 15:56 by Rolando Alegria MD) Heart failure with reduced ejection fraction (HFpEF) heart failure with preserved ejection fraction Cough Subclinical hypothyroidism Tinea versicolor Hypothyroidism Vitamin D deficiency Hypercholesteremia Anemia PAD (peripheral artery disease) CHF (congestive heart failure) Pericardial effusion Acute dermatitis Murmur, cardiac Diabetes Hypertension Surgical History History of revascularization procedure of lower extremity S/P complete hysterectomy Family History Father Prostate cancer Mother Hypertension Sister Hypertension Brother No problems noted. 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 Hearing needs: No Vision needs: Yes Questionnaire Thrive Questionnaire Date Thrive assessed: 09/09/23 AUDIT C Alcohol Use Questionnaire (AUDIT-C) 1. How often do you have a drink containing alcohol?: Never 3. How often do you have six or more drinks on one occasion?: Never Total Score: 0 FABIO-7 AMB Questionnaire FABIO-7 Date FABIO - 7 assessed: 09/09/23 Source: Developed by Drs. Vinh Garcia, Alicia Allred, Jordan Olvera and colleagues, with an educational mela from [employer]. Physical exam (Primary Care) Vital Signs: Last Vital Signs Pulse 64 11/11/23 15:57 BP 164/76 H 11/11/23 15:57 Pulse Ox 98 11/11/23 15:57 Oxygen Delivery Method Room Air 11/11/23 15:57 BMI result Body Mass Index 29.5 Tobacco/Smoking Status: Tobacco use Status Tobacco use date assessed 11/11/23 11/11/23 15:57 Patient Tobacco Use Status Never used Tobacco 11/11/23 15:57 Tobacco use type Cigarette 11/11/23 15:57 e-Cigarette/Vaping Use Never Used 11/11/23 15:57 Thrive Assessment: Date of Thrive Assessment Date Thrive assessed 09/09/23 11/11/23 15:57 Const General: alert; No acute distress Eyes Conjunctivae: conjunctivae normal Resp Auscultation: clear to auscultation bilaterally Cardio Rate: regular rate Rhythm: regular rhythm GI Inspection: Yes normal to inspection Extrem General: Yes normal to inspection and No edema Assessment and Plan Assessment & Plan (1) Type 2 diabetes mellitus with hyperglycemia: Code(s): E11.65 - Type 2 diabetes mellitus with hyperglycemia Plan: Decrease the amount of carbohydrate intake, pasta, bread, rice and potatoes are all sugar and that is aside from all the sweet stuff, remember that fruits are good but they are Sweet also. Hemoglobin A1c goal of less than 6.5. Patient has been prescribed glipizide 10 mg twice a day and Jardiance but Jardiance was not covered. Metformin had mouth sore. (2) Uncontrolled hypertension: Code(s): I10 - Essential (primary) hypertension Plan: Continue with blood pressure medication. Decrease salt intake and exercise has seen Cardiology increase carvedilol 12.5 mg twice a day hydralazine 20 mg twice a day nifedipine 30 mg once a day and Aldactone 25 mg once a day (3) (HFpEF) heart failure with preserved ejection fraction: Code(s): I50.30 - Unspecified diastolic (congestive) heart failure Plan: Weigh daily, on diuretic furosemide 20 mg every other day (4) Hypothyroidism: Code(s): E03.9 - Hypothyroidism, unspecified Plan: Continue to monitor (5) Hypercholesteremia: Code(s): E78.00 - Pure hypercholesterolemia, unspecified Plan: Avoid fried foods, chicken skin, eggs, butter margarine, pastries and meat. Be it pork or beef they have a lot of cholesterol rosuvastatin 20 mg once a day March 2023 LDL 73. Orders: Orders Complete Blood Count Auto Diff 2 Months E11.65 - Type 2 diabetes mellitus with hyperglycemia Comprehensive Met. Panel 2 Months E11.65 - Type 2 diabetes mellitus with hyperglycemia Hemoglobin A1c 2 Months E11.65 - Type 2 diabetes mellitus with hyperglycemia Medications: New dapagliflozin propanediol (Farxiga) 5 mg PO DAILY 30 tabs 3RF E11.65 - Type 2 diabetes mellitus with hyperglycemia Coding Level of Care Code Est Pt Level 4 (63536) Diagnoses Type 2 diabetes mellitus with hyperglycemia E11.65 Uncontrolled hypertension I10 (HFpEF) heart failure with preserved ejection fraction I50.30 Hypothyroidism E03.9 Hypercholesteremia E78.00
[2023-11-11 15:57] VITALS: BP 164/76; PULSE 64; O2SAT 98; BMI 29.5
== END 2023-11-11 16:52 | disposition home or self-care (01) ==
PROVIDERS: PCP Internal Medicine; Visit Provider Internal Medicine
DX: E11.65 Type 2 diabetes mellitus with hyperglycemia (principal); I11.0 Hypertensive heart disease with heart failure; I50.30 Unspecified diastolic (congestive) heart failure; E03.9 Hypothyroidism, unspecified; E78.00 Pure hypercholesterolemia, unspecified
CPT/HCPCS: 99214

== ENCOUNTER 2023-11-28 07:51 | Outpatient (REF) | payer OTHER, SELFPAY ==
--- NOTE | ~2023-11-28 | FL_ITS ---
EXAMINATION: XR FLUOROSCOPY UPPER GI WITH AIR CLINICAL INFORMATION: Dysphagia COMPARISON: None TECHNIQUE: Fluoroscopic air contrast upper GI examination was performed utilizing standard techniques with thin and thick barium and effervescent granules. Numerous spot images were obtained. FINDINGS: Lateral cine images of the oropharynx and hypopharynx demonstrate normal swallow mechanism with normal epiglottic inversion and soft palate elevation. No tracheal penetration, glottic or subglottic aspiration identified. No nasopharyngeal reflux present. Hypopharyngeal structures appear normal without evidence of mass or diverticulum. There is mild indentation of the posterior wall of the esophagus due to a small bridging osteophyte of C5-C6. There was no significant cricopharyngeal achalasia. Dual and single contrast images of the esophagus demonstrate normal caliber, contour, and mucosal pattern. No evidence of stricture, mass, or ulcerations identified. Esophageal peristalsis is mildly disorganized. No evidence of hiatus hernia identified. Significant gastroesophageal reflux up to the thoracic inlet. Dual contrast and single contrast images of the stomach demonstrated normal contour and mucosal pattern without evidence of mass, ulceration, or other abnormality. Contrast freely passed into the gastric antrum and duodenal bulb without delay. Single and air-contrast images of the duodenal bulb demonstrate no abnormality. The duodenal sweep has a normal appearance, course, and mucosal fold appearance. The imaged proximal jejunum has a normal fold pattern and caliber. FLUOROSCOPY TIME: 5 minutes 13 seconds Number of Spot Images: 8 Number of Cine: 13 DOSE AREA PRODUCT: 3385 uGy-m2 (microgray-meter squared) FL/FL barium swallow with air IMPRESSION: 1. Mild indentation of the posterior wall esophagus due to a small bridging osteophyte at C5-C6. This is unlikely contributing to the patient's symptoms. 2. Mildly disorganized esophageal peristalsis. 3. Significant gastroesophageal reflux. This procedure was performed by Tyler Lang PA-C, and supervised by Dr. Montero
== END 2023-11-28 07:52 | disposition home or self-care (01) ==
LOC: HO.XRAY 07:51
PROVIDERS: PCP Internal Medicine; Visit Provider Otolaryngology
DX: R13.10 Dysphagia, unspecified (principal)
CPT/HCPCS: 74221

== ENCOUNTER → 2023-11-28 07:53 | Outpatient (BNV) | payer OTHER, SELFPAY | PROVIDERS: PCP Internal Medicine; Visit Provider Physician Assistant Surgical | DX: R13.10 Dysphagia, unspecified (principal) | CPT/HCPCS: 74246 ==

== ENCOUNTER 2023-12-08 15:20 | Outpatient (AMB) | payer OTHER, SELFPAY ==
[2023-12-08 15:28] VITALS: BP 120/74; PULSE 60; BMI 29.3
--- NOTE | 2023-12-08 15:28 | MHC.OFFVIS ---
Vital Signs 12/08/23 15:28 Height 5 ft 5 in Weight 176 lb 5.917 oz BMI 29.3 BP 120/74 Blood Pressure Location Lt brachial Position Sitting Pulse 60 Intake Visit Reasons: 6 wk bp Intake Note: 6 week follow-up feeling ok [employer] Supervisor Required: No Allergies sacubitril [From Entresto] Allergy (Severe, Verified 11/11/23 15:57) Nausea and Vomiting fish derived [FISH] Allergy (Unknown, Verified 11/11/23 15:57) itchy,rash ferrous sulfate Allergy (Verified 11/11/23 15:57) Abdominal Pain valsartan Adverse Reaction (Intermediate, Verified 11/11/23 15:57) Cough terazosin Adverse Reaction (Verified 11/11/23 15:57) Diarrhea metformin Adverse Reaction (Unknown, Uncoded 11/11/23 15:57) mouth sore Medication List - Last Reconciled 12/08/23 by Rolando Alegria MD blood pressure monitor (Blood Pressure Kit) As directed carvedilol (Coreg) 12.5 mg PO BID cholecalciferol (vitamin D3) (Vitamin D3) 25 mcg PO DAILY furosemide 20 mg PO Q OTHER DAY glipizide 10 mg PO BID hydralazine 20 mg (2 x 10 mg) PO BID ketoconazole 2% 1 appl topical DAILY nifedipine ER 30 mg PO DAILY rosuvastatin 20 mg PO DAILY spironolactone (Aldactone) 25 mg PO DAILY triamcinolone acetonide 0.1% 1 appl topical BID HPI Comments Details: 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 She says she has been very regular with regimen and a blood pressures gradually come down. Mostly 130 systolic range. Blood pressure in the office is extremely well controlled. She complains of burning discomfort in the sole of her right foot. No leg swelling, orthopnea, PND, worsening shortness of breath. No exertional chest pain. No lightheadedness, syncope. Denies any prolonged palpitations. [facility] Medical History Heart failure with reduced ejection fraction (HFpEF) heart failure with preserved ejection fraction Cough Subclinical hypothyroidism Tinea versicolor Hypothyroidism Vitamin D deficiency Hypercholesteremia Anemia PAD (peripheral artery disease) CHF (congestive heart failure) Pericardial effusion Acute dermatitis Murmur, cardiac Diabetes Hypertension Surgical History History of revascularization procedure of lower extremity S/P complete hysterectomy Family History Father Prostate cancer Mother Hypertension Sister Hypertension Brother No problems noted. 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 Hearing needs: No Vision needs: Yes Review of Systems Const Denies chills, Denies fatigue, Denies fever(s), Denies frequent falls, Denies weakness, Denies weight gain and Denies weight loss ENT Denies dizziness Card Denies chest pain, Denies leg edema, Denies lightheadedness, Denies palpitations, Denies dyspnea, Denies dyspnea on exertion, Denies orthopnea and Denies other (loss of consciousness) Resp Denies cough, Denies dyspnea and Denies dyspnea on exertion GI Denies hematochezia and Denies change in stool character Musc Denies abnormal gait, Denies muscle weakness, Denies numbness, Denies radiating pain into limb and Denies tingling Neuro Denies Abnormal speech present, Denies abnormal gait, Denies dizziness, Denies frequent falls, Denies numbness, Denies tingling and Denies weakness Endo Denies fatigue and Denies palpitations Physical Exam Vital Signs: Last Vital Signs Pulse 60 12/08/23 15:28 BP 120/74 12/08/23 15:28 BMI result Body Mass Index 29.3 Const General: cooperative, comfortable, no acute distress, alert, awake and well groomed Nutritional Appearance: overweight Orientation/consciousness: patient oriented x3 Limitations: no limitations HEENT Head: Yes normocephalic and Yes atraumatic Neck Neck: Yes trachea midline, Yes supple and Yes no JVD Resp Effort & Inspection: normal respiratory effort Auscultation: clear to auscultation bilaterally Cardio Jugular venous distension: no JVD Rate: regular rate Rhythm: regular rhythm Heart sounds: S1 normal heart sound present, S2 normal heart sound present, no click, no gallops, no murmurs and no rubs GI Auscultation: normal bowel sounds Skin General skin exam: no rashes or lesions noted Neuro General: patient oriented x3 and no focal motor deficits Speech: No Abnormal speech present Extrem General: No clubbing, No cyanosis and Yes edema Psych Appearance: grossly normal Assessment & Plan Assessment & Plan (1) (HFpEF) heart failure with preserved ejection fraction: Code(s): I50.30 - Unspecified diastolic (congestive) heart failure Category: Medical Plan: Heart failure preserved ejection fraction, clinically euvolemic and well compensated. Continue current therapy. Continue Lasix every other day. Low-salt diet was discussed. Daily weight monitoring was discussed additional diuretics as need be. Aggressive control blood pressure was discussed. She understands and agrees. Advised to call me with any worsening symptoms. (2) Uncontrolled hypertension: Code(s): I10 - Essential (primary) hypertension Category: Medical Plan: Prior history of uncontrolled hypertension which is not currently optimized on current regimen. Importance of good blood pressure control was discussed. She understands agrees. She is now [place] to [place], advised to continue to monitor blood pressure there. Target goal blood pressure less than 130/80 for most of the times. Continue current therapy. Low-salt diet was discussed. Advised to maintain activity level as tolerated. Will follow up in the clinic in 3 months time, sooner p.r.n.. Thank you for allowing me to partake in the care Medications: New furosemide 20 mg PO Q OTHER DAY 60 tabs 1RF I50.20 - Unspecified systolic (congestive) heart failure Refilled hydralazine 20 mg (2 x 10 mg) PO BID 360 tabs 2RF nifedipine ER 30 mg PO DAILY 90 tabs 1RF I10 - Essential (primary) hypertension carvedilol (Coreg) must administer with a meal/food 12.5 mg PO BID 180 tabs 1RF spironolactone (Aldactone) 25 mg PO DAILY 90 tabs 1RF Coding Level of Care Code Est Pt Level 4 (43101) Diagnoses (HFpEF) heart failure with preserved ejection fraction I50.30 Uncontrolled hypertension I10
== END 2023-12-08 15:57 | disposition home or self-care (01) ==
PROVIDERS: PCP Internal Medicine; Visit Provider Internal Medicine Cardiovascular Disease
DX: I50.30 Unspecified diastolic (congestive) heart failure (principal); I10 Essential (primary) hypertension
CPT/HCPCS: 99214

== ENCOUNTER → 2023-12-08 15:20 | Outpatient (BNVA) | payer OTHER, SELFPAY | PROVIDERS: PCP Internal Medicine; Visit Provider Internal Medicine Cardiovascular Disease ==

== ENCOUNTER 2024-03-06 10:42 | Emergency (ER) | payer OTHER, SELFPAY ==
--- NOTE | 2024-03-06 | ECG_ITS ---
Test Reason : cp Blood Pressure : / mmHG Vent. Rate : 075 BPM Atrial Rate : 075 BPM P-R Int : 162 ms QRS Dur : 092 ms QT Int : 412 ms P-R-T Axes : 005 051 246 degrees QTc Int : 460 ms Normal sinus rhythm Possible Left atrial enlargement Minimal voltage criteria for LVH, may be normal variant ( Lyndon product ) Anterior infarct , age undetermined T wave abnormality, consider inferolateral ischemia Abnormal ECG No previous ECGs available Referred By: Generic ED Physician Electronically Signed By:BRIANNA JACOBO
--- NOTE | ~2024-03-06 | CT_ITS ---
EXAMINATION: CT ANGIOGRAM OF THE CHEST WITH AND WITHOUT CONTRAST (CT PULMONARY ANGIOGRAM FOR PE) CLINICAL INFORMATION: Dyspnea, pleuritic chest pain, elevated BNP R/O PE COMPARISON: None available. TECHNIQUE: Prior to contrast administration, noncontrast localization images were obtained. Subsequently, multidetector volumetric imaging was performed from the thoracic inlet to below the diaphragms following the administration of 65 mL Omnipaque 350 intravenous contrast. No contrast reaction reported Sagittal, coronal, and MIP oblique sagittal reformatted images were obtained on the CT workstation, uploaded to PACS, and reviewed. This CT examination was performed using dose optimization techniques as appropriate, variously including the following: *Automated exposure control *Adjustment of mA and/or kV according to patient size (this includes techniques or standardized protocols for targeted exams where dose is matched to indication/reason for exam; i.e. extremities or head) *Use of iterative reconstruction technique Total exam dose-length product 265 mGy-cm FINDINGS: QUALITY OF STUDY/CONTRAST BOLUS: Satisfactory. PULMONARY ARTERIES: No pulmonary emboli. THORACIC AORTA: No aneurysm. LUNG: Central airways patent. Mild central bronchial wall thickening. Smooth interlobular septal thickening at the bilateral apical upper lobes and basilar lower lobes. Subtle peribronchovascular groundglass in the basilar lower lobes. No focal consolidation, nodules or masses. PLEURA: Small bilateral dependent simple pleural effusions. No pneumothorax. MEDIASTINUM: Left atrial and ventricular enlargement with apparent circumferential wall thickening of the left ventricle. Small, physiologic pericardial fluid. No hilar or mediastinal lymphadenopathy. No evidence of septal bowing or right heart strain. CORONARY ARTERY CALCIFICATION: Mild coronary artery calcifications present. CHEST WALL/AXILLA: No axillary or internal mammary lymphadenopathy. OSSEOUS STRUCTURES: No acute or suspicious osseous abnormality. UPPER ABDOMEN: Unremarkable. No reflux of contrast into the hepatic veins to suggest elevated right heart pressures. CT/CT angio chest PE protocol IMPRESSION: 1. No pulmonary embolism. 2. Left atrial and ventricular enlargement with mild interstitial pulmonary edema and small bilateral pleural effusions. VTE: negative. Electronically signed by: Lyndon Schmitt MD 03/06/2024 03:45 PM EDT
--- NOTE | ~2024-03-06 | XR_ITS ---
EXAMINATION: XR CHEST CLINICAL INFORMATION: Cough COMPARISON: Chest radiograph 06/17/2023 TECHNIQUE: 2 views of the chest were obtained. FINDINGS: Clear lungs. Mild blunting of the left costophrenic angle. No pneumothorax. Cardiomediastinal silhouette is unchanged. XR/XR chest 2V IMPRESSION: Mild blunting of the left costophrenic angle, may represent a small pleural effusion. Otherwise unremarkable chest radiographs Electronically signed by: Lyndon Schmitt MD 03/06/2024 01:24 PM EDT
[2024-03-06 10:49] VITALS: BP 154/87; PULSE 72; RESP 18; TEMP 36.9; O2SAT 99; BMI 29.6
[2024-03-06 11:11] LABS: MANUAL DIFF FLAG NO
[2024-03-06 11:16] LABS: Basophils Percent Auto 0.5 % (0-2); Eosinophils Absolute Auto 0.1 X10*3/uL (0.0-0.4); Eosinophils Percent Auto 2.1 % (0-4); Hematocrit 30.9 % (37.0-47.0); Hemoglobin 9.8 g/dl (12.0-16.0); Imm Gran Abs Auto 0.03 X10*3/uL (0.00-0.03); Imm Gran Pct Auto 0.5 % (0.0-0.4); Lymphocytes Absolute Auto 1.6 X10*3/uL (1.2-4.9); Lymphocytes Percent Auto 27.6 % (20-40); Mean Corpuscular HGB Conc 31.7 g/dl (31.0-35.0); Mean Corpuscular Hemoglobin 26.6 pg (27.0-33.0); Mean Platelet Volume 11.2 fL (9.4-12.3); Monocytes Absolute Auto 0.4 X10*3/uL (0.1-1.2); Monocytes Percent Auto 7.3 % (2-11); Neutrophils Absolute Auto 3.6 x10*3/uL (2.0-8.3); Platelet Count 232 X10*3/uL (160-400); Red Blood Count 3.68 X10*6/uL (4.20-5.50); Red Cell Distribution Width 12.8 % (11.0-16.0); White Blood Count 5.8 X10*3/uL (4.8-10.8)
--- NOTE | 2024-03-06 11:22 | ED.GENADULT ---
HPI - General Adult General Chief complaint: Dyspnea Stated complaint: sob Time Seen by Provider: 03/06/24 11:45 Source: patient Mode of arrival: ambulatory Limitations: no limitations History of Present Illness ED Provider: Dr. Zachary Caruso HPI narrative: 59-year-old female with a history of congestive heart failure, cardiomyopathy (EF of 35-40%), diabetes mellitus, hypertension, hyperlipidemia, peripheral arterial disease, pericarditis who presents emergency department for evaluation of shortness of breath x2 days. Patient states that she has gradually become more short of breath over the past 2 days. She also has dyspnea on exertion which is worse when she goes upstairs. She states that she can hear herself wheezing and that when she breathe she gets tightness in her chest. She denied neck jaw or arm pain.. She denied fever, chills, rhinorrhea, sore throat, nausea, vomiting or diarrhea. Patient traveled to [facility] from 12/18/2023 and returned on 02/14/2024. She denies any swelling in her lower extremities and she denies any pain in her lower extremities. She states that her symptoms feel similar to when she had congestive heart failure in the past. Related Data Previous Rx's ?Medication ?Instructions ?Recorded ketoconazole 2 % topical cream 1 appl topical DAILY #30 grams 08/30/22 blood pressure monitor (Blood #1 ea 04/09/23 Pressure Kit) triamcinolone acetonide 0.1 % 1 appl topical BID #30 grams 09/09/23 topical cream cholecalciferol (vitamin D3) 25 25 mcg PO DAILY #90 caps 12/01/23 mcg (1,000 unit) capsule (Vitamin D3) carvedilol 12.5 mg tablet (Coreg) 12.5 mg PO BID #180 tabs 12/08/23 furosemide 20 mg tablet 20 mg PO Q OTHER DAY #60 tabs 12/08/23 hydralazine 10 mg tablet 20 mg (2 x 10 mg) PO BID #360 tabs 12/08/23 spironolactone 25 mg tablet 25 mg PO DAILY #90 tabs 12/08/23 (Aldactone) glipizide 10 mg tablet 10 mg PO BID #60 tabs 12/18/23 empagliflozin 10 mg tablet 10 mg PO DAILY #30 tabs 02/08/24 (Jardiance) nifedipine 30 mg tablet,extended 30 mg PO DAILY #90 tabs 03/04/24 release 24 hr rosuvastatin 20 mg tablet 20 mg PO DAILY #90 tabs 03/04/24 Allergies Allergy/AdvReac Type Severity Reaction Status Date / Time sacubitril [From Entresto] Allergy Severe Nausea and Verified 03/06/24 10:54 Vomiting fish derived [FISH] Allergy Unknown itchy,rash Verified 03/06/24 10:54 ferrous sulfate Allergy Abdominal Verified 03/06/24 10:54 Pain valsartan AdvReac Intermediate Cough Verified 03/06/24 10:54 terazosin AdvReac Diarrhea Verified 03/06/24 10:54 metformin AdvReac Unknown mouth sore Uncoded 03/06/24 10:54 Review of Systems Review of Systems: Yes all other systems are reviewed and are negative [facility] Past Medical History [facility] Narrative: Social history: She denies tobacco, alcohol and drug use Medical History Heart failure with reduced ejection fraction (HFpEF) heart failure with preserved ejection fraction Cough Subclinical hypothyroidism Tinea versicolor Hypothyroidism Vitamin D deficiency Hypercholesteremia Anemia PAD (peripheral artery disease) CHF (congestive heart failure) Pericardial effusion Acute dermatitis Murmur, cardiac Diabetes Hypertension Surgical History History of revascularization procedure of lower extremity S/P complete hysterectomy Family History Family History Father Prostate cancer Mother Hypertension Sister Hypertension Brother No problems noted. 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 Cognitive needs: No Hearing needs: No Vision needs: Yes Physical Exam ED Vital Signs: Vital Signs - 24 hr 03/06/24 10:49 03/06/24 11:52 03/06/24 14:13 Temperature 98.5 F 98.0 F Pulse Rate 72 79 74 Respiratory Rate 18 18 17 Blood Pressure 154/87 H 205/85 H 196/88 H Pulse Oximetry 99 97 Oxygen Delivery Method Room Air Room Air Oxygen Flow Rate 100 03/06/24 15:45 03/06/24 16:47 Temperature 97.9 F 97.9 F Pulse Rate 68 68 Respiratory Rate 17 18 Blood Pressure 182/84 H 182/84 H Pulse Oximetry 97 97 Oxygen Delivery Method Room Air Room Air Oxygen Flow Rate BMI result Body Mass Index 29.6 Vital signs revealed an elevated blood pressure 154/87 Exam: General: Awake, alert in no distress Head: Normocephalic, atraumatic EENT: PERRL, Lids normal, sclera normal, conjunctiva normal, nose normal , ears normal, throat without erythema or exudates Neck: Supple, no adenopathy Lung: breath sounds symmetric, no wheezing, rales or rhonchi Chest: symmetric movement, nontender Heart: regular rate and rhythm, normal S1, S2 no murmurs or rubs Abdomen: soft, non-tender, nondistended, normal bowel sounds Back: no vertebral tenderness, no CVAT Extremities: no deformities, moves all extremities symmetrically, trace pitting edema bilaterally symmetric Neuro: Awake, alert, oriented, normal speech, cranial nerves intact, moves all extremities symmetrically Psych: Pleasant, cooperative Course Course Course Narrative: RME performed by Brunilda Hernandez PA-C. Patient is a 59 year old assigned female at presenting to the emergency department with worsening shortness of breath. Patient states over the last 3 days she has felt generally unwell with worsening shortness of breath and wheezing. Detailed physical exam and review of systems are deferred to the educational speech language clinician. EKG, labs, imaging, and swabs ordered. Patient placed back in the waiting room pending room availability and results. Medications Administered Discontinued Medications Generic Name Dose Route Start Last Admin Trade Name Freq PRN Reason Stop Dose Admin Iohexol 100 ml 03/06/24 13:14 03/06/24 13:14 Iohexol 350 Mg/Ml 100 Ml Infus..Btl IV 03/06/24 13:15 65 ml ONCE ONE Administration Medical Decision Making Medical Decision Making MDM Narrative: 59-year-old female with a history of congestive heart failure, cardiomyopathy (EF of 35-40%), diabetes mellitus, hypertension, hyperlipidemia, peripheral arterial disease, pericarditis who presents emergency department for evaluation of shortness of breath x2 days with intermittent chest tightness and wheezing. Patient recently returned from [facility] 02/14/2024. Vital signs revealed an elevated blood pressure. Exam did reveal trace pitting edema which was bilaterally symmetric otherwise was unremarkable. Differential diagnosis: ?Includes but is not limited to myocardial infarction, myocardial ischemia, pulmonary embolism, congestive heart failure, pneumonia, anemia, electrolyte abnormalities Following evaluation was ordered: CBC, CMP, BNP, D-dimer, troponin, PTT, COVID-19, influenza, RSV, chest x-ray two view, EKG, CT angiogram PE protocol Course: Patient's laboratory evaluation did reveal low H&H of 9.8 and 30.9 as well as an elevated BNP of 1122. Troponin was less than 17 which is reassuring. Chest x-ray did not reveal any clear cause for her dyspnea and I was concerned that she might have a pulmonary embolism therefore CT pulmonary angiogram PE protocol was obtained and no PE was noted which is also reassuring. Patient does have evidence of pulmonary edema on her CT scan and I did discuss these findings with the patient. The patient was currently taking furosemide every other day and I told her to change this to every day Admission/Observation Consideration of admission/observation: Escalation of care including admission/observation considered Lab Data MDM Lab Attestation statement: I reviewed the patient's lab results. My interpretation patient's laboratory evaluation is as follows: WBC was normal 5800. Normocytic anemia with an H&H of 9.8 and 30.9 compared to baseline value of 11.4 and 35.9 BUN elevated at 23 with a normal creatinine of 1.25. Glucose elevated 210. COVID-19, influenza and RSV were negative. High sensitive troponin I was detectable but not elevated at 13. BNP was elevated 1122. D-dimer was below 240. 03/06/24 11:03 03/06/24 11:03 Labs: Lab Results 03/06/24 03/06/24 Range/Units 11:03 12:03 WBC 5.8 (4.8-10.8) X10*3/uL RBC 3.68 L (4.20-5.50) X10*6/uL Hgb 9.8 L (12.0-16.0) g/dl Hct 30.9 L (37.0-47.0) % MCV 84.0 (80.0-98.0) fL MCH 26.6 L (27.0-33.0) pg MCHC 31.7 (31.0-35.0) g/dl RDW 12.8 (11.0-16.0) % Plt Count 232 (160-400) X10*3/uL MPV 11.2 (9.4-12.3) fL Immature Gran % (Auto) 0.5 H (0.0-0.4) % Neut % (Auto) 62.0 (45-73) % Lymph % (Auto) 27.6 (20-40) % [place] % (Auto) 7.3 (2-11) % Eos % (Auto) 2.1 (0-4) % Baso % (Auto) 0.5 (0-2) % Lymph # (Auto) 1.6 (1.2-4.9) X10*3/uL [place] # (Auto) 0.4 (0.1-1.2) X10*3/uL Eos # (Auto) 0.1 (0.0-0.4) X10*3/uL Baso # (Auto) 0.0 (0.0-0.2) X10*3/uL Abs Immat Gran (auto) 0.03 (0.00-0.03) X10*3/uL Absolute Neuts (auto) 3.6 (2.0-8.3) x10*3/uL Absolute Nucleated RBC 0.000 (0.0-0.012) X10*3/uL Nucleated RBC % (auto) 0.0 (0.0-0.2) /100WBC APTT 33.0 (26.0-36.8) SEC D-Dimer High Sensitivty 238 NG/ML Sodium 135 (135-145) mmol/L Potassium 4.5 (3.3-5.1) mmol/L Chloride 105 (96-108) mmol/L Carbon Dioxide 22 (22-29) mmol/L Anion Gap 13 (12-20) BUN 23 H (9-16) mg/dL Creatinine 1.25 (0.5-1.4) mg/dL Estim Creat Clear Calc 50.2 Estimated GFR 44 Random Glucose 210 H (60-115) mg/dL Calcium 9.3 D (8.4-10.2) mg/dL Total Bilirubin 0.6 (0.0-1.0) mg/dL AST 15 (5-31) U/L ALT 14 (0-31) U/L Alkaline Phosphatase 46 (39-117) U/L Troponin I High Sens 13.2 (<3.5-17.0) ng/L B-Natriuretic Peptide 1122 H (<100) pg/mL Total Protein 6.1 L (6.5-8.0) g/dL Albumin 3.9 (3.5-5.0) g/dL Influenza Type A (PCR) NEGATIVE (Negative) Influenza Type B (PCR) NEGATIVE (Negative) RSV RNA Qual (PCR) NEGATIVE (Negative) SARS-CoV-2 RNA (RT-PCR) NEGATIVE (Negative) Radiology Impression Discussion of test interpretation with radiology: I have reviewed the radiologist's reading. Radiologist Impression: EXAMINATION: CT ANGIOGRAM OF THE CHEST WITH AND WITHOUT CONTRAST (CT PULMONARY ANGIOGRAM FOR PE) CLINICAL INFORMATION: Dyspnea, pleuritic chest pain, elevated BNP R/O PE FINDINGS: QUALITY OF STUDY/CONTRAST BOLUS: Satisfactory. PULMONARY ARTERIES: No pulmonary emboli. THORACIC AORTA: No aneurysm. LUNG: Central airways patent. Mild central bronchial wall thickening. Smooth interlobular septal thickening at the bilateral apical upper lobes and basilar lower lobes. Subtle peribronchovascular groundglass in the basilar lower lobes. No focal consolidation, nodules or masses. PLEURA: Small bilateral dependent simple pleural effusions. No pneumothorax. MEDIASTINUM: Left atrial and ventricular enlargement with apparent circumferential wall thickening of the left ventricle. Small, physiologic pericardial fluid. No hilar or mediastinal lymphadenopathy. No evidence of septal bowing or right heart strain. CORONARY ARTERY CALCIFICATION: Mild coronary artery calcifications present. IMPRESSION: 1. No pulmonary embolism. 2. Left atrial and ventricular enlargement with mild interstitial pulmonary edema and small bilateral pleural effusions. VTE: negative. Electronically signed by: Lyndon Schmitt MD 03/06/2024 03:45 PM EDT Dictated By: Lyndon Schmitt MD Critical Care Time Critical Care Time Critical Care Time: Yes Total Critical Care Time: 45 Attestation: Critical Care: The patient was critically ill with a high probability of imminent or life threatening deterioration. I spent greater than 30 minutes of discontinuous time evaluating the patient,delivering critical care at the bedside, discussing and evaluating pertinent data with consultants. Critical care time does not include time spent performing separately billable procedures or teaching. Total time spent performing critical care was 45 minutes. Discharge Plan Discharge Clinical Impression: CHF (congestive heart failure), Dyspnea Patient Disposition: Home, Self-Care Additional Instructions: Your blood work did reveal a low hemoglobin and hematocrit of 9.8 and 30.9. This is not the reason for your shortness of breath. Your BNP was elevated at 1122 (normal is less than 100). We often see an elevation like this when there was too much fluid in your lungs. Your chest x-ray was unremarkable. The CT scan of your chest with IV contrast did not reveal any blood clots in your lungs (pulmonary emboli) which is very reassuring. The CT scan does reveal that you have increased fluid in your lungs and this explains your shortness of breath. I want you to increase your furosemide from every other day to once a day to get fluid off your body and this should improve the fluid in your lungs. You should limit the amount of fluid that you drink 2 only when your thirsty in the goal is food he lose 1-2 kg of fluid weight over the next 2 weeks. 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 Prescriptions: No Action cholecalciferol (vitamin D3) [Vitamin D3] 25 mcg (1,000 unit) capsule 25 mcg PO DAILY Qty: 90 1RF glipizide 10 mg tablet 10 mg PO BID Qty: 60 2RF Jardiance 10 mg tablet 10 mg PO DAILY Qty: 30 3RF nifedipine 30 mg tablet extended release 24hr 30 mg PO DAILY Qty: 90 1RF rosuvastatin 20 mg tablet 20 mg PO DAILY Qty: 90 1RF triamcinolone acetonide 0.1 % cream 1 appl topical BID Qty: 30 0RF ketoconazole 2 % cream 1 appl topical DAILY Qty: 30 0RF Rx Instructions: apply to bilateral hyperpigmented areas on forearms for 14 days. (DME) blood pressure monitor [Blood Pressure Kit] Kit See Rx Instructions .ROUTE .MEDSUPPLY Qty: 1 0RF Rx Instructions: As directed carvedilol [Coreg] 12.5 mg tablet 12.5 mg PO BID Qty: 180 1RF Rx Instructions: must administer with a meal/food hydralazine 10 mg tablet 20 mg PO BID Qty: 360 2RF spironolactone [Aldactone] 25 mg tablet 25 mg PO DAILY Qty: 90 1RF furosemide 20 mg tablet 20 mg PO Q OTHER DAY Qty: 60 1RF Stand Alone Forms: Work/School Release Interventions: ED Discharge Assessment Last Done: 03/06/24 16:47 Discharge Date/Time: 03/06/24 16:48 Print Language: Fijian
[2024-03-06 11:36] LABS: Alanine Aminotransferase 14 U/L (0-31); Albumin Level 3.9 g/dL (3.5-5.0); Alkaline Phosphatase 46 U/L (39-117); Anion Gap 13 (12-20); Aspartate Amino Transferase 15 U/L (5-31); Bilirubin Total 0.6 mg/dL (0.0-1.0); Blood Urea Nitrogen 23 mg/dL (9-16); Calcium 9.3 mg/dL (8.4-10.2); Carbon Dioxide 22 mmol/L (22-29); Chloride 105 mmol/L (96-108); Creatinine Clr Calc Pharmacy 50.2; Estimated Glomerular Filt Rate 44; Glucose Random 210 mg/dL (60-115); Potassium 4.5 mmol/L (3.3-5.1); Sodium 135 mmol/L (135-145); Total Protein 6.1 g/dL (6.5-8.0)
[2024-03-06 11:38] LABS: B Type Natriuretic Peptide 1122 pg/mL (<100)
[2024-03-06 11:52] VITALS: BP 205/85; PULSE 79; RESP 18
[2024-03-06 12:04] LABS: Influenza A PCR NEGATIVE (Negative); Influenza B PCR NEGATIVE (Negative); Resp Syncy Virus RNA Qual PCR NEGATIVE (Negative); SARS COV2 PCR INHOUSE NEGATIVE (Negative)
[2024-03-06 12:19] LABS: D Dimer High Sensitivity 238 NG/ML
[2024-03-06 12:23] LABS: Troponin-I High Sensitivity 13.2 ng/L (<3.5-17.0)
[2024-03-06] MEDS: iohexoL 350 MG/ML 100 ML INFUS..BTL IV (13:14)
[2024-03-06 14:13] VITALS: BP 196/88; PULSE 74; RESP 17; TEMP 36.7; O2SAT 97
--- NOTE | 2024-03-06 15:00 | PC.NURSE ---
Provider aware of elevatedBP, no new orders at this time
[2024-03-06 15:45] VITALS: BP 182/84; PULSE 68; RESP 17; TEMP 36.6; O2SAT 97
[2024-03-06 16:47] VITALS: BP 182/84; PULSE 68; RESP 18; TEMP 36.6; O2SAT 97
== END 2024-03-06 16:48 | disposition home or self-care (01) ==
PROVIDERS: Emergency Provider Emergency Medicine Emergency Medical Services
DX: I11.0 Hypertensive heart disease with heart failure (principal); I50.9 Heart failure, unspecified; Z03.818 Encounter for observation for suspected exposure to other biological agents ruled out; R06.02 Shortness of breath; E11.9 Type 2 diabetes mellitus without complications; E78.00 Pure hypercholesterolemia, unspecified; Z86.711 Personal history of pulmonary embolism; Z79.02 Long term (current) use of antithrombotics/antiplatelets; Z79.899 Other long term (current) drug therapy
CPT/HCPCS: 0241U; 71046; 71275; 80053; 83880; 84484; 85025; 85379; 85730; 93005; 99284; Q9967

== ENCOUNTER 2024-03-10 14:40 | Outpatient (AMB) | payer OTHER, SELFPAY ==
[2024-03-10 14:45] VITALS: BP 172/82; PULSE 62; O2SAT 98; BMI 28.5
--- NOTE | 2024-03-10 14:45 | A.OFFPC_ITS ---
Vital Signs 03/10/24 14:45 Height 5 ft 5 in Weight 171 lb BMI 28.5 BP 172/82 H Blood Pressure Location Lt brachial Position Sitting Pulse 62 Pulse Source Pulse Oximeter Pulse Oximetry (%) 98 Oxygen Delivery Method Room Air Intake Visit Reasons: [facility] 03/19 left eye cataract Wind Development Director Required: No Accompanied by: Self / Same As Patient Allergies sacubitril [From Entresto] Allergy (Severe, Verified 03/10/24 15:12) Nausea and Vomiting fish derived [FISH] Allergy (Unknown, Verified 03/10/24 15:12) itchy,rash ferrous sulfate Allergy (Verified 03/10/24 15:12) Abdominal Pain valsartan Adverse Reaction (Intermediate, Verified 03/10/24 15:12) Cough terazosin Adverse Reaction (Verified 03/10/24 15:12) Diarrhea metformin Adverse Reaction (Unknown, Uncoded 03/10/24 15:12) mouth sore Medication List - Last Reconciled 03/10/24 by Luz Hernandez PA-C blood pressure monitor (Blood Pressure Kit) As directed carvedilol (Coreg) 12.5 mg PO BID cholecalciferol (vitamin D3) (Vitamin D3) 25 mcg PO DAILY empagliflozin (Jardiance) 10 mg PO DAILY furosemide 20 mg PO Q OTHER DAY glipizide 10 mg PO BID hydralazine 20 mg (2 x 10 mg) PO BID ketoconazole 2% 1 appl topical DAILY nifedipine ER 30 mg PO DAILY rosuvastatin 20 mg PO DAILY spironolactone (Aldactone) 25 mg PO DAILY triamcinolone acetonide 0.1% 1 appl topical BID Tobacco use date assessed: 11/11/23 Dental Screening Dental Screen Date: 09/09/23 HPI [facility] 03/19 left eye cataract HPI Details 58-year-old overweight female with an un controlled diabetes mellitus, cardiomyopathy, uncontrolled hypertension, congestive heart failure, and hypercholesterolemia coming in for pre op. Patient is scheduled to have left eye cataract surgery at [facility] on 03/19/2024. She does tell us today that she went on vacation and lost her luggage and was with the without medications for about 1 month. Diabetes Mellitus: A1c in the office today 11.4%. Currenlty on Jardiance and glipizide. Hypertension: Blood pressure in the office today 172/92. Currently on Nifedipine, hydralazine and Carvedilol. [facility] Medical History Heart failure with reduced ejection fraction (HFpEF) heart failure with preserved ejection fraction Cough Subclinical hypothyroidism Tinea versicolor Hypothyroidism Vitamin D deficiency Hypercholesteremia Anemia PAD (peripheral artery disease) CHF (congestive heart failure) Pericardial effusion Acute dermatitis Murmur, cardiac Diabetes Hypertension Surgical History History of revascularization procedure of lower extremity S/P complete hysterectomy Family History Father Prostate cancer Mother Hypertension Sister Hypertension Brother No problems noted. 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 Hearing needs: No Vision needs: Yes Questionnaire PHQ-9 Over the last 2 weeks, how often have you been bothered by any of the following problems? 1. Little interest or pleasure in doing things: not at all 2. Feeling down, depressed, or hopeless: not at all 3. Trouble falling or staying asleep, or sleeping too much: not at all 4. Feeling tired or having little energy: not at all 5. Poor appetite or overeating: not at all 6. Feeling bad about yourself - or that you are a failure or have let yourself or your family down: not at all 7. Trouble concentrating on things, such as reading the newspaper or watching television: not at all 8. Moving or speaking so slowly that other people could have noticed. Or the opposite - being so fidgety or restless that you have been moving around a lot more than usual: not at all 9. Thoughts that you would be better off or of hurting yourself in some way: not at all Total score: 0 Depression Screening Interpretation: Negative Depression Screening Done: Yes Source: Developed by Drs. Vinh L. RadhaAlicia tay Kurt Kroenke and colleagues, with an educational mela from [employer]. Thrive Questionnaire Date Thrive assessed: 09/09/23 AUDIT C Alcohol Use Questionnaire (AUDIT-C) 1. How often do you have a drink containing alcohol?: Never 3. How often do you have six or more drinks on one occasion?: Never Total Score: 0 FABIO-7 AMB Questionnaire FABIO-7 Date FABIO - 7 assessed: 09/09/23 Source: Developed by Drs. Vinh Garcia, Jordan Ford and colleagues, with an educational mela from [employer]. Review of Systems Const Denies body aches, Denies chills, Denies fever(s), Denies headache(s) and Denies poor appetite Eyes Reports no additional complaints ENT Denies dysphagia, Denies dizziness, Denies headache(s) and Denies odynophagia Card Denies chest pain, Denies syncope, Denies edema, Denies irregular heart rhythm, Denies lightheadedness and Denies dyspnea Resp Denies cough and Denies dyspnea GI Denies abdominal pain, Denies constipation, Denies dysphagia, Denies diarrhea, Denies nausea, Denies odynophagia and Denies vomiting Reports no additional complaints Musc Reports no additional complaints and Denies abnormal gait Skin/Breast Reports system reviewed and no additional complaints, except as documented Neuro Denies abnormal gait, Denies dizziness, Denies syncope and Denies headache(s) Psych Reports no additional complaints Physical exam (Primary Care) Vital Signs: Last Vital Signs Pulse 62 03/10/24 14:45 BP 172/82 H 03/10/24 14:45 Pulse Ox 98 03/10/24 14:45 Oxygen Delivery Method Room Air 03/10/24 14:45 BMI result Body Mass Index 28.5 Tobacco/Smoking Status: Tobacco use Status Tobacco use date assessed 11/11/23 03/10/24 14:51 Patient Tobacco Use Status Never used Tobacco 03/10/24 14:51 Tobacco use type Cigarette 03/10/24 14:51 e-Cigarette/Vaping Use Never Used 03/10/24 14:51 PHQ-9: PHQ-9 Score PHQ-9: Total score 0 03/10/24 15:07 Depression Screening Interpretation: Negative Thrive Assessment: Date of Thrive Assessment Date Thrive assessed 09/09/23 03/10/24 14:51 Const General: cooperative, healthy appearing, comfortable and no acute distress Orientation/consciousness: patient oriented x3 HENMT Head: Yes normocephalic Ears: hearing grossly normal bilaterally General nose exam: Normal external nose present Eyes General: appearance normal, both eyes and all related structures Conjunctivae: conjunctivae normal Neck Neck: Yes full ROM and Yes no lymphadenopathy Resp Effort & Inspection: normal respiratory effort Auscultation: clear to auscultation bilaterally, no crackles, no rales, no rhonchi and no wheezes Cardio Rate: regular rate Rhythm: regular rhythm Skin General skin exam: no rashes or lesions noted Neuro General: patient oriented x3 Gait exam (Neuro): Normal gait present Extrem General: Yes normal to inspection, Yes full ROM and No edema Psych Affect: normal affect Attitude: cooperative Insight: Good insight present (Psych) Judgement: Good judgement present (Psych) Results AMB Hemoglobin A1c AMB Hemoglobin A1c 11.3 % Last Edit by Sulema Crowley CMA on 03/10/24 15:1 0 Results Reviewed Results Reviewed: Laboratory Last Values Hgb A1c (Clinic) 11.3 % (4.0-6.0) H 03/10/24 15:03 Assessment and Plan Assessment & Plan (1) Pre-op evaluation: Code(s): Z01.818 - Encounter for other preprocedural examination Plan: Regarding preop clearance, the patient is at high risk for delayed wound healing and infection for proposed surgery.? Reviewed with the patient that no surgery is completely free of risk and that this examination is to assist the surgeon in reviewing informed consent. Patient is not currently on any blood thinners, NSAIDs, or antiplatelet medications. Discussed with patient that I do recommend postponing the procedure until her blood sugars and blood pressures are under better control. Discussed with her that it is up to the surgeon's discretion and that if he or she decides to go through with the surgery she needs to discontinue her Jardiance 4 days prior to surgery. However given her uncontrolled comorbidities she is at risk for infection and delayed wound healing as well as cardiac complications. (2) Type 2 diabetes mellitus with hyperglycemia: Code(s): E11.65 - Type 2 diabetes mellitus with hyperglycemia Plan: Decrease the amount of carbohydrates such as pasta, bread, rice, and potatoes and limit the amount of sweets. Although fruits are generally healthy they should be eaten in moderation as they are still high in sugar. Hemoglobin A1c goal of less than 7%. Discussed increasing the Jardiance however given that she was without her medications for 1 month the A1c is not an accurate representation of the efficacy of Jardiance. We will repeat A1c after being on it consistently for 3 months. (3) Uncontrolled hypertension: Code(s): I10 - Essential (primary) hypertension Plan: Blood pressure was elevated once again in the office today. She does have a follow up with Cardiology coming up at the end of this month as well as with Dr. Garcia and we will defer medication adjustments to them. Avoid salt intake and encouraged healthy diet and exercise. Plan This note was constructed using voice recognition software. While every effort has been made to ensure accuracy and regional driver, still areas may have been included sometimes these areas may affect the content or meeting of the given symptoms. Total time spent caring for the patient today was 30 minutes. This includes time spent before the visit reviewing the chart, time spent during the visit, and time spent after the visit and documentation. Orders: Orders AMB Hemoglobin A1c Today E11.65 - Type 2 diabetes mellitus with hyperglycemia Medications: New empagliflozin (Jardiance) 10 mg PO DAILY 30 tabs 3RF Refilled triamcinolone acetonide 0.1% 1 appl topical BID 30 grams 0RF I10 - Essential (primary) hypertension Discontinued empagliflozin (Jardiance) Discontinued Reason: Ancillary Entered New Order 10 mg PO DAILY 30 tabs 3RF Coding Level of Care Code Est Pt Level 4 (51328) Diagnoses Pre-op evaluation Z01.818 Type 2 diabetes mellitus with hyperglycemia E11.65 Uncontrolled hypertension I10 Additional Codes PHQ-9 - 36890 - PHQ-9 Billing: ([id number])
== END 2024-03-10 15:34 | disposition home or self-care (01) ==
PROVIDERS: PCP Internal Medicine
DX: Z01.818 Encounter for other preprocedural examination (principal); E11.65 Type 2 diabetes mellitus with hyperglycemia; I10 Essential (primary) hypertension
CPT/HCPCS: 83036; 99214

== ENCOUNTER 2024-03-22 15:42 | Outpatient (AMB) | payer OTHER, SELFPAY ==
[2024-03-22 15:55] VITALS: BP 160/60; BMI 28.1
--- NOTE | 2024-03-22 15:55 | A.OFFPC_ITS ---
Vital Signs 03/22/24 15:55 03/22/24 16:03 Height 5 ft 5 in Weight 169 lb BMI 28.1 BP 160/60 H 160/70 H Blood Pressure Location Rt brachial Lt brachial Position Sitting Sitting Pulse 62 Pulse Source Pulse Oximeter Pulse Oximetry (%) 99 Oxygen Delivery Method Room Air Intake Visit Reasons: DM Intake Note: Patient here for a follow up DM Senior Ux Designer Required: No Accompanied by: Self / Same As Patient Allergies sacubitril [From Entresto] Allergy (Severe, Verified 03/22/24 15:59) Nausea and Vomiting fish derived [FISH] Allergy (Unknown, Verified 03/22/24 15:59) itchy,rash ferrous sulfate Allergy (Verified 03/22/24 15:59) Abdominal Pain valsartan Adverse Reaction (Intermediate, Verified 03/22/24 15:59) Cough terazosin Adverse Reaction (Verified 03/22/24 15:59) Diarrhea metformin Adverse Reaction (Unknown, Uncoded 03/10/24 15:12) mouth sore Tobacco use date assessed: 11/11/23 Dental Screening Dental Screen Date: 03/22/24 Did you have a dental visit in the last 12 months?: Yes Did you have a dental problem in the last 6 months where you did not have access to dental care?: No Was dental information given to patient?: Patient has dentist HPI DM HPI Details 59-year-old overweight female with hyper tension hypercholesterolemia hypothyroidism diabetes mellitus cardiomyopathy PID last seen in February for preoperative evaluation. Patient is supposed to be for cataract surgery. Patient was in the emergency room in February for congestive heart failure had CT angiogram showing atrial and ventricular enlargement with interstitial pulmonary edema and bilateral pleural effusions. BNP of 1122. Patient was diuresed. Patient was followed up by Cardiology also December 07 heart failure with preserved ejection fraction. Echocardiogram last done in 07/19/2023Normal LV e jection fraction 55-60% with moderate LVH and grade 3 diastolic dysfunction 2. Normal cardiac valvular Doppler 3. Upper limits of normal RV systolic pr essure 4. Small pericardial effusion near the L Vrmal LV ejection fraction 55-60% with moderate LVH and grade 3 diastolic dysfunction 2. Normal cardiac valvular Doppler 3. Upper limits of normal RV systolic pr essure 4. Small pericardial effusion near the L V [facility] P[facility] just started JArdiance only and declined insulin. FBs 178, 201, eye exam cataract done Dr. Tompkins February 2024 [facility] Medical History Heart failure with reduced ejection fraction (HFpEF) heart failure with preserved ejection fraction Cough Subclinical hypothyroidism Tinea versicolor Hypothyroidism Vitamin D deficiency Hypercholesteremia Anemia PAD (peripheral artery disease) CHF (congestive heart failure) Pericardial effusion Acute dermatitis Murmur, cardiac Diabetes Hypertension Surgical History (Updated 03/22/24 @ 16:00 by RODO Gonzalez) History of cataract surgery History of revascularization procedure of lower extremity S/P complete hysterectomy Family History Father Prostate cancer Mother Hypertension Sister Hypertension Brother No problems noted. 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 needs: No Hearing needs: No Vision needs: Yes Questionnaire Thrive Questionnaire Date Thrive assessed: 09/09/23 Are you currently unemployed and looking for a job?: Yes FABIO-7 AMB Questionnaire FABIO-7 Date FABIO - 7 assessed: 09/09/23 Source: Developed by Drs. Vinh Garcia, Alicia Allred, Jordan Olvera and colleagues, with an educational mela from [employer]. Physical exam (Primary Care) Vital Signs: Last Vital Signs Pulse 62 03/22/24 16:03 BP 160/70 H 03/22/24 16:03 Pulse Ox 99 03/22/24 16:03 Oxygen Delivery Method Room Air 03/22/24 16:03 BMI result Body Mass Index 28.1 Tobacco/Smoking Status: Tobacco use Status Tobacco use date assessed 11/11/23 03/22/24 16:04 Patient Tobacco Use Status Never used Tobacco 03/22/24 16:04 Tobacco use type 03/22/24 16:04 e-Cigarette/Vaping Use Never Used 03/22/24 16:04 Thrive Assessment: Date of Thrive Assessment Date Thrive assessed 09/09/23 03/22/24 16:04 Const General: alert; No acute distress Eyes Conjunctivae: conjunctivae normal Resp Auscultation: clear to auscultation bilaterally Cardio Rate: regular rate Rhythm: regular rhythm GI Inspection: Yes normal to inspection Extrem General: Yes normal to inspection and No edema Assessment and Plan Assessment & Plan (1) Type 2 diabetes mellitus with hyperglycemia: Code(s): E11.65 - Type 2 diabetes mellitus with hyperglycemia Plan: Decrease the amount of carbohydrate intake, pasta, bread, rice and potatoes are all sugar and that is aside from all the sweet stuff, remember that fruits are good but they are Sweet also. Hemoglobin A1c goal of less than 6.5. Patient on Jardiance 10 mg once a day , glipizide 10 mg twice a day (2) (HFpEF) heart failure with preserved ejection fraction: Code(s): I50.30 - Unspecified diastolic (congestive) heart failure Plan: Patient is on Aldactone and furosemide and carvedilol (3) Subclinical hypothyroidism: Code(s): E03.8 - Other specified hypothyroidism Plan: Need to retest thyroid (4) Hypercholesteremia: Code(s): E78.00 - Pure hypercholesterolemia, unspecified Plan: Avoid fried foods, chicken skin, eggs, butter margarine, pastries and meat. Be it pork or beef they have a lot of cholesterol LDL goal of less than 70 and triglyceride of less than 150. (5) Anemia: Code(s): D64.9 - Anemia, unspecified Plan: This needs to be monitored to recheck for B12 and iron (6) Hypertension: Code(s): I10 - Essential (primary) hypertension Plan: Continue with blood pressure medication. Decrease salt intake and exercise patient on hydralazine 20 mg twice a day carvedilol 12.5 mg twice a day nifedipine 30 mg once a Orders: Orders Complete Blood Count Auto Diff Today D64.9 - Anemia, unspecified Comprehensive Met. Panel Today D64.9 - Anemia, unspecified Ferritin Today D64.9 - Anemia, unspecified Reticulocyte Count Today D64.9 - Anemia, unspecified IRON PROFILE Today D64.9 - Anemia, unspecified Thyroid Stimulating Hormone Today D64.9 - Anemia, unspecified Vitamin D 25-OH Total Today D64.9 - Anemia, unspecified Microalbumin, Random (w Creat) Today D64.9 - Anemia, unspecified, E11.65 - Type 2 diabetes mellitus with hyperglycemia Creatinine Urine Today D64.9 - Anemia, unspecified, E11.65 - Type 2 diabetes m ellitus with hyperglycemia Lipid Panel Today D64.9 - Anemia, unspecified, E78.00 - Pure hypercholesterolemia, unspecified Vitamin B12 and Folate Today D64.9 - Anemia, unspecified Free T4 (Free Thyroxine) Today D64.9 - Anemia, unspecified UA CC w/rflx Micro + Cult Today D64.9 - Anemia, unspecified, R30.0 - Dysuria B Type Natriuretic Peptide Today D64.9 - Anemia, unspecified Coding Level of Care Code Est Pt Level 4 (98523) Diagnoses Type 2 diabetes mellitus with hyperglycemia E11.65 (HFpEF) heart failure with preserved ejection fraction I50.30 Subclinical hypothyroidism E03.8 Hypercholesteremia E78.00 Anemia D64.9 Hypertension I10
[2024-03-22 16:03] VITALS: BP 160/70; PULSE 62; O2SAT 99
== END 2024-03-22 16:31 | disposition home or self-care (01) ==
PROVIDERS: PCP Internal Medicine; Visit Provider Internal Medicine
DX: E11.65 Type 2 diabetes mellitus with hyperglycemia (principal); I50.30 Unspecified diastolic (congestive) heart failure; E03.8 Other specified hypothyroidism; E78.00 Pure hypercholesterolemia, unspecified; D64.9 Anemia, unspecified; I10 Essential (primary) hypertension

== ENCOUNTER → 2024-03-22 15:42 | Outpatient (BNVA) | payer OTHER, SELFPAY | PROVIDERS: PCP Internal Medicine; Visit Provider Internal Medicine | DX: E11.65 Type 2 diabetes mellitus with hyperglycemia (principal); I50.30 Unspecified diastolic (congestive) heart failure; E03.8 Other specified hypothyroidism; E78.00 Pure hypercholesterolemia, unspecified; D64.9 Anemia, unspecified; I10 Essential (primary) hypertension; Z79.899 Other long term (current) drug therapy ==

== ENCOUNTER 2024-03-23 13:53 | Outpatient (AMB) | payer OTHER, SELFPAY ==
[2024-03-23 14:14] VITALS: BP 150/60; PULSE 60; BMI 28.9
--- NOTE | 2024-03-23 14:14 | A.OFFVIS_ITS ---
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[employer] Service Mechanic Required: No Accompanied by: Self / Same As Patient Allergies sacubitril [From Entresto] Allergy (Severe, Verified 03/22/24 15:59) Nausea and Vomiting fish derived [FISH] Allergy (Unknown, Verified 03/22/24 15:59) itchy,rash ferrous sulfate Allergy (Verified 03/22/24 15:59) Abdominal Pain valsartan Adverse Reaction (Intermediate, Verified 03/22/24 15:59) Cough terazosin Adverse Reaction (Verified 03/22/24 15:59) Diarrhea metformin Adverse Reaction (Unknown, Uncoded 03/10/24 15:12) mouth sore Medication List - Last Reconciled 03/23/24 by Rolando Alegria MD blood pressure monitor (Blood Pressure Kit) As directed carvedilol (Coreg) 12.5 mg PO BID cholecalciferol (vitamin D3) (Vitamin D3) 25 mcg PO DAILY empagliflozin (Jardiance) 10 mg PO DAILY furosemide 20 mg PO Q OTHER DAY glipizide 10 mg PO BID hydralazine 20 mg (2 x 10 mg) PO BID ketoconazole 2% 1 appl topical DAILY nifedipine ER 30 mg PO DAILY rosuvastatin 20 mg PO DAILY spironolactone (Aldactone) 25 mg PO DAILY triamcinolone acetonide 0.1% 1 appl topical BID HPI Comments Details: 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 After returning back from her overseas trip to [facility] she had developed increasing symptoms of shortness of breath and leg edema. She came to the emergency room. BNP at that time was 11:00. She was then advised to increase her Lasix to 20 mg daily. She has been doing that with improvement in his symptoms with improvement in her leg edema. Blood pressure continues to remain elevated mostly above systolic 140. Some of the blood pressure readings are in systolic 160-170. She denies any orthopnea, PND since increasing Lasix therapy. Denies any palpitations, lightheadedness, syncope. No exertional chest pain. [facility] Medical History Heart failure with reduced ejection fraction (HFpEF) heart failure with preserved ejection fraction Cough Subclinical hypothyroidism Tinea versicolor Hypothyroidism Vitamin D deficiency Hypercholesteremia Anemia PAD (peripheral artery disease) CHF (congestive heart failure) Pericardial effusion Acute dermatitis Murmur, cardiac Diabetes Hypertension Surgical History History of cataract surgery History of revascularization procedure of lower extremity S/P complete hysterectomy Family History Father Prostate cancer Mother Hypertension Sister Hypertension Brother No problems noted. 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 needs: No Hearing needs: No Vision needs: Yes Review of Systems Const Denies chills, Denies fatigue, Denies fever(s), Denies frequent falls, Denies weakness, Denies weight gain and Denies weight loss ENT Denies dizziness Card Denies chest pain, Denies leg edema, Denies lightheadedness, Denies palpitations, Denies dyspnea and Denies dyspnea on exertion Resp Denies cough, Denies dyspnea and Denies dyspnea on exertion GI Denies hematochezia Musc Denies abnormal gait, Denies muscle weakness, Denies numbness, Denies radiating pain into limb and Denies tingling Neuro Denies Abnormal speech present, Denies abnormal gait, Denies dizziness, Denies frequent falls, Denies numbness, Denies tingling and Denies weakness Endo Denies fatigue and Denies palpitations Physical Exam Vital Signs: Last Vital Signs Pulse 60 03/23/24 14:14 BP 150/60 H 03/23/24 14:14 BMI result Body Mass Index 28.9 Const General: cooperative, comfortable, no acute distress, alert, awake and well groomed Nutritional Appearance: overweight Orientation/consciousness: patient oriented x3 Limitations: no limitations HEENT Head: Yes normocephalic and Yes atraumatic Neck Neck: Yes trachea midline, Yes supple and Yes no JVD Resp Effort & Inspection: normal respiratory effort Auscultation: clear to auscultation bilaterally Cardio Jugular venous distension: no JVD Rate: regular rate Rhythm: regular rhythm Heart sounds: S1 normal heart sound present, S2 normal heart sound present, no click, no gallops, no murmurs and no rubs GI Auscultation: normal bowel sounds Skin General skin exam: no rashes or lesions noted Neuro General: patient oriented x3 and no focal motor deficits Speech: No Abnormal speech present Extrem General: No clubbing, No cyanosis and Yes edema Psych Appearance: grossly normal Assessment & Plan Assessment & Plan (1) (HFpEF) heart failure with preserved ejection fraction: Code(s): I50.30 - Unspecified diastolic (congestive) heart failure Category: Medical Plan: Heart failure preserved ejection fraction, clinically euvolemic and well compensated since increasing her Lasix therapy. Continue the same. Importance of good blood pressure control was discussed. Continue neurohormonal modulation with Jardiance. Continue aggressive blood pressure control, see below. She had cardiomyopathy process when I had 1st seen a but they LV systolic function has improved now. Will follow-up echocardiogram 6 months time. Management of heart failure was discussed. She understands management well. Low-salt diet was discussed. Advised to maintain activity level as tolerated. (2) Uncontrolled hypertension: Code(s): I10 - Essential (primary) hypertension Category: Medical Plan: Blood pressure remains uncontrolled. Continue to maximize medical therapy. Gradually increase nifedipine to 60 mg daily. Advised to monitor blood pressure at home and maintain a log. Goal blood pressure less than systolic 140. Continue carvedilol, hydralazine as before. Will increase nifedipine. Continue spironolactone therapy. Overall importance of good blood pressure control and with good control long-term prognosis was discussed with her. She shows understanding. Follow up in the clinic in 6 months time after an echocardiogram. Thank you for allowing me to partake in his care Orders: Orders CA echo transthoracic complete 6 Months I50.30 - Unspecified diastolic (congestive) heart failure Medications: New nifedipine ER 60 mg PO DAILY 30 tabs 5RF Changed From glipizide 10 mg PO BID 60 tabs 2RF E11.65 - Type 2 diabetes mellitus with hyperglycemia To glipizide 10 mg PO ONCE 60 tabs 2RF E11.65 - Type 2 diabetes mellitus with hyperglycemia Discontinued nifedipine ER Discontinued Reason: Doctor's Order 30 mg PO DAILY 90 tabs 1RF I10 - Essential (primary) hypertension Coding Level of Care Code Est Pt Level 4 (84627) Diagnoses (HFpEF) heart failure with preserved ejection fraction I50.30 Uncontrolled hypertension I10
== END 2024-03-23 14:34 | disposition home or self-care (01) ==
PROVIDERS: PCP Internal Medicine; Visit Provider Internal Medicine Cardiovascular Disease
DX: I50.30 Unspecified diastolic (congestive) heart failure (principal); I10 Essential (primary) hypertension
CPT/HCPCS: 99214

== ENCOUNTER → 2024-03-23 13:53 | Outpatient (BNVA) | payer OTHER, SELFPAY | PROVIDERS: PCP Internal Medicine; Visit Provider Internal Medicine Cardiovascular Disease ==

== ENCOUNTER 2024-03-29 06:14 | Outpatient (REF) | payer OTHER, SELFPAY ==
[2024-03-29 06:40] LABS: MANUAL DIFF FLAG NO
[2024-03-29 07:22] LABS: Basophils Percent Auto 0.8 % (0-2); Eosinophils Absolute Auto 0.1 X10*3/uL (0.0-0.4); Eosinophils Percent Auto 3.1 % (0-4); Hemoglobin 10.5 g/dl (12.0-16.0); Imm Gran Abs Auto 0.01 X10*3/uL (0.00-0.03); Imm Gran Pct Auto 0.3 % (0.0-0.4); Lymphocytes Absolute Auto 1.6 X10*3/uL (1.2-4.9); Lymphocytes Percent Auto 40.4 % (20-40); Mean Corpuscular HGB Conc 31.8 g/dl (31.0-35.0); Mean Corpuscular Hemoglobin 27.3 pg (27.0-33.0); Mean Corpuscular Volume 85.9 fL (80.0-98.0); Mean Platelet Volume 11.2 fL (9.4-12.3); Monocytes Absolute Auto 0.4 X10*3/uL (0.1-1.2); Monocytes Percent Auto 11.3 % (2-11); Neutrophils Absolute Auto 1.7 x10*3/uL (2.0-8.3); Neutrophils Percent Auto 44.1 % (45-73); Platelet Count 215 X10*3/uL (160-400); Red Blood Count 3.84 X10*6/uL (4.20-5.50); Red Cell Distribution Width 13.2 % (11.0-16.0); Reticulocyte Percent 1.7 % (0.5-1.8); Reticulocytes Absolute 0.065 X10*6/uL (0.026-0.095); White Blood Count 3.9 X10*3/uL (4.8-10.8)
[2024-03-29 07:28] LABS: Estimated Average Glucose 232 mg/dL; Hemoglobin A1c % 9.7 % (<6.0)
[2024-03-29 07:39] LABS: Creatinine Urine 102.87 mg/dL; Microalbum/Creatinine Ratio Ur 167.2 ug/mg cr (<30)
[2024-03-29 07:42] LABS: B Type Natriuretic Peptide 280 pg/mL (<100)
[2024-03-29 07:50] LABS: Alanine Aminotransferase 12 U/L (0-31); Albumin Level 4.3 g/dL (3.5-5.0); Alkaline Phosphatase 41 U/L (39-117); Anion Gap 14 (12-20); Aspartate Amino Transferase 14 U/L (5-31); Bilirubin Total 0.4 mg/dL (0.0-1.0); Blood Urea Nitrogen 38 mg/dL (9-16); Carbon Dioxide 24 mmol/L (22-29); Chloride 109 mmol/L (96-108); Cholesterol 145 mg/dL (<200); Estimated Glomerular Filt Rate 33; Glucose Random 156 mg/dL (60-115); HDL Cholesterol 53 mg/dL (>40); Iron 90 mcg/dL (30-160); LDL Cholesterol Calculated 81 mg/dL (<100); Percent Iron Saturation 30 % (15-50); Sodium 142 mmol/L (135-145); Total Iron Binding Capacity 296 mcg/dL (228-428); Total Protein 6.7 g/dL (6.5-8.0); Triglycerides 59 mg/dL (<150); Unsaturated Iron Binding 206 ug/dL
[2024-03-29 08:01] LABS: Ferritin 234 ng/mL (10-250); Free T4 (Free Thyroxine) 0.76 ng/dL (0.71-1.85); Thyroid Stimulating Hormone 6.64 uIU/mL (0.32-4.0); Vitamin D 25-OH Total 33.4 ng/mL (>30)
[2024-03-29 08:07] LABS: Appearance Urine Clear; Color Urine Yellow; Glucose Urine UA >=1000 mg/dL (Negative); Leukocyte Esterase Urine Negative (Negative); Nitrite Urine Negative (Negative); PH 5.5 (5.0-9.0); UMIC TRIGGER UACC YES; Urine Blood Negative (Negative); Urine Ketones Negative (Negative); Urine Protein 30 (1+) mg/dL (Neg-Trace)
[2024-03-29 08:13] LABS: Bacteria Urine None Seen (None Seen); Hyaline Casts Urine 0-2 /LPF (0-2); RBC Urine 0-2 /HPF (0-2); Squamous Epithelial Cell Urine 0-2 /HPF (0-2); WBC Urine 0-5 /HPF (0-5)
[2024-03-29 08:17] LABS: Folate 10.2 ng/mL (> or = 4.0); Vitamin B12 404 pg/mL (200-900)
== END 2024-03-29 06:15 | disposition home or self-care (01) ==
LOC: HO.LAB 06:14
PROVIDERS: PCP Internal Medicine; Visit Provider Internal Medicine
DX: D64.9 Anemia, unspecified (principal); E78.00 Pure hypercholesterolemia, unspecified; E11.65 Type 2 diabetes mellitus with hyperglycemia
CPT/HCPCS: 36415; 80053; 80061; 81001; 81003; 82043; 82306; 82570; 82607; 82728; 82746; 83036; 83540; 83880; 84439; 84443; 85025; 85045

== ENCOUNTER 2024-04-05 13:00 | Outpatient (REF) | payer OTHER, SELFPAY ==
--- NOTE | ~2024-04-05 | MM_ITS ---
EXAMINATION: MM SCREENING DIGITAL BREAST TOMOSYNTHESIS, BILATERAL CLINICAL INFORMATION: Screening. Asymptomatic. COMPARISON: Mammography: Comparison is made with available priors TECHNIQUE: Digital breast mammography with tomosynthesis is performed in both the craniocaudal and mediolateral oblique views along with computer-aided detection (CAD). FINDINGS: There are scattered areas of fibroglandular density (ACR BI-RADS breast composition Category b). There are no significant masses, abnormal calcifications, or other abnormalities. MM/MM tomosynthesis screening BI IMPRESSION: No mammographic evidence of malignancy. ASSESSMENT: BI-RADS BI-RADS 1 - Negative RECOMMENDATION: Routine annual mammography screening. 1 year F/U This examination should not preclude the clinical evaluation of a suspicious palpable abnormality. This patient's information was entered into a reminder system with a target due date for their next mammogram. Electronically signed by: Lory Lazaro DO 04/16/2024 10:09 AM [facility]
== END 2024-04-05 13:01 | disposition home or self-care (01) ==
LOC: HO.MAMMO 13:00
PROVIDERS: PCP Internal Medicine; Visit Provider Internal Medicine
DX: Z12.31 Encounter for screening mammogram for malignant neoplasm of breast (principal)
CPT/HCPCS: 77063; 77067

== ENCOUNTER → 2024-04-05 13:15 | Outpatient (BNV) | payer OTHER, SELFPAY | PROVIDERS: PCP Internal Medicine; Visit Provider Internal Medicine | DX: Z12.31 Encounter for screening mammogram for malignant neoplasm of breast (principal) | CPT/HCPCS: 77063; 77067 ==

== ENCOUNTER 2024-04-27 08:16 | Outpatient (REF) | payer OTHER, SELFPAY ==
--- NOTE | ~2024-04-27 | US_ITS ---
EXAMINATION: Noninvasive assessment of the bilateral lower extremities with ARTERIAL DUPLEX and ANKLE BRACHIAL INDICES (ABIs). CLINICAL INFORMATION: Diabetes, prior unknown vascular surgery TECHNIQUE: Duplex Doppler techniques with waveform analysis and measurement of velocities in the bilateral common femoral, profunda femoris, superficial femoral, popliteal and tibial arteries were performed. Additionally, ankle pulse volume recordings, ankle pressure measurements and ankle brachial indices were obtained of the lower extremity arterial system bilaterally. The study was performed only at rest. COMPARISON: None FINDINGS: DIRECT DUPLEX DOPPLER FINDINGS: RIGHT LEG: Common femoral artery: 145 cm/s, phasicity: Triphasic Profunda femoris artery: 121 cm/s, phasicity: Biphasic Superficial femoral artery (proximal): 80 cm/s, phasicity: Triphasic Superficial femoral artery (mid): 89 cm/s, phasicity: Triphasic Superficial femoral artery (distal): 78 cm/s, phasicity: Triphasic Popliteal artery: 52 cm/s, phasicity: Biphasic Posterior tibial artery: 25 cm/s, phasicity: Monophasic Peroneal artery: 20 cm/s, phasicity: Monophasic Anterior tibial artery: 17 cm/s, phasicity: Monophasic Dorsalis pedis artery: 6 cm/s, phasicity:Monophasic LEFT LEG: Common femoral artery: 89 cm/s, phasicity: Biphasic Profunda femoris artery: 64 cm/s, phasicity: Biphasic Superficial femoral artery (proximal): 104 cm/s, phasicity: Right phasic Superficial femoral artery (mid): 82 cm/s, phasicity: Biphasic Superficial femoral artery (distal): 71 cm/s, phasicity: Biphasic Popliteal artery: 63 cm/s, phasicity: Biphasic Posterior tibial artery: Occluded in the proximal end mid segment, reconstitution of the distal segment with 14 cm/s, phasicity: Monophasic Peroneal artery: 95 cm/s, phasicity: Biphasic Anterior tibial artery: 44 cm/s, phasicity: Biphasic Dorsalis pedis artery: 7 cm/s, phasicity: Monophasic BRACHIAL PRESSURES: Right: 200 Left: 200 ANKLE PRESSURES: Right: PT 158, DP 138 Left: PT 200, DP 200 ANKLE-BRACHIAL INDEX: Right: 0.79 Left: 1.0 ANKLE PVR WAVEFORMS: Right: Abnormal Left: Abnormal US/US arterial duplex BI w/ DAHLIA IMPRESSION: Right leg: Significant decrease in velocity and monophasic waveforms of the below the knee arteries. Abnormal right ankle brachial index of 0.79, suggestive of moderate arterial insufficiency. Left leg: Occlusion of the left posterior tibial artery in the proximal and mid segment with reconstitution of the distal segment. Ankle brachial index of 1.0 is likely inaccurate due to elevated blood pressures of 200 in the left arm and ankle. DAHLIA Reference: - >1.4 = calcified vessels - 0.9 - 1.4 = normal - no significant arterial disease - 0.7 - 0.89 = mild peripheral arterial disease - 0.51 - 0.69 = moderate peripheral arterial disease - d 0.50 = severe peripheral arterial disease - < .30 = critical arterial disease Electronically signed by: Bridgett Conway MD 05/05/2024 07:19 PM [facility] [place]
== END 2024-04-27 08:17 | disposition home or self-care (01) ==
LOC: HO.US 08:16
PROVIDERS: PCP Internal Medicine; Visit Provider Surgery Vascular Surgery
DX: I73.9 Peripheral vascular disease, unspecified (principal)
CPT/HCPCS: 93922; 93925

== ENCOUNTER 2024-06-08 14:39 | Outpatient (AMB) | payer OTHER, SELFPAY ==
--- NOTE | 2024-06-08 14:40 | A.OFFVIS_ITS ---
Intake Visit Reasons: 1 yr follow up Arterial US 04/29/24 Intake Note: Pt c/o of intermittent pain under right foot. [employer] Adviser Required: No Accompanied by: Self / Same As Patient Allergies sacubitril [From Entresto] Allergy (Severe, Verified 03/22/24 15:59) Nausea and Vomiting fish derived [FISH] Allergy (Unknown, Verified 03/22/24 15:59) itchy,rash ferrous sulfate Allergy (Verified 03/22/24 15:59) Abdominal Pain valsartan Adverse Reaction (Intermediate, Verified 03/22/24 15:59) Cough terazosin Adverse Reaction (Verified 03/22/24 15:59) Diarrhea metformin Adverse Reaction (Unknown, Uncoded 03/10/24 15:12) mouth sore HPI HPI 1 yr follow up Arterial US 04/29/24: Details: Very pleasant 59-year-old female presents for evaluation regarding peripheral vascular disease. She is a unga of [employer]. She is currently a non in [place]. She remains quite active. She reports that she can ambulate long distances with no difficulty. Before it became cold she was walking from her con[place] all the way to the [employer] tree which was easily a mi or 2. At the current time she denies any significant difficulty. She does have some pain on the ball of her foot. Now presents for routine surveillance follow-up with noninvasive arterial testing. [facility] Medical History Heart failure with reduced ejection fraction (HFpEF) heart failure with preserved ejection fraction Cough Subclinical hypothyroidism Tinea versicolor Hypothyroidism Vitamin D deficiency Hypercholesteremia Anemia PAD (peripheral artery disease) CHF (congestive heart failure) Pericardial effusion Acute dermatitis Murmur, cardiac Diabetes Hypertension Surgical History History of cataract surgery History of revascularization procedure of lower extremity S/P complete hysterectomy Family History Father Prostate cancer Mother Hypertension Sister Hypertension Brother No problems noted. 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 needs: No Hearing needs: No Vision needs: Yes Review of Systems Const All systems reviewed & are unremarkable except as noted in HPI and below Denies chills, Denies fatigue, Denies fever(s), Denies weight gain and Denies weight loss ENT Reports Normal hearing present and Denies dizziness Card Denies chest pain, Denies leg edema, Denies lightheadedness, Denies palpitations, Denies dyspnea on exertion, Denies orthopnea and Denies other Resp Denies cough and Denies dyspnea on exertion GI Denies hematochezia and Denies change in stool character Musc Denies abnormal gait, Denies muscle weakness, Denies numbness, Denies radiating pain into limb and Denies tingling Skin/Breast Denies skin ulcer and Denies wounds Neuro Reports Normal hearing present, Denies abnormal gait, Denies dizziness, Denies numbness and Denies tingling Psych Reports no additional complaints Endo Denies fatigue and Denies palpitations Physical Exam Const General: cooperative, healthy appearing and comfortable Orientation/consciousness: oriented to person, oriented to place and oriented to time HEENT Head: Yes normal to inspection Neck Neck: Yes normal visual inspection Carotids: no bruits Chest Chest palpation & inspection: normal inspection of the chest Resp Effort & Inspection: normal respiratory effort and able to speak in complete sentences Auscultation: clear to auscultation bilaterally, no crackles, no rales, no rhonchi and no wheezes Cardio Other: Palpable bilateral dorsalis pedis pulses Rate: regular rate Rhythm: regular rhythm Heart sounds: S1 normal heart sound present and S2 normal heart sound present Bruits: no carotid bruits Peripheral pulses: Peripheral pulses 2+ throughout GI Inspection: Yes normal to inspection Skin Wounds: no wounds Hair: normal Neuro General: oriented to person, oriented to place and oriented to time Cranial nerves: Yes CN's II-XII intact bilaterally and Yes Normal hearing present Cognition (Neuro): normal cognition Motor exam (neuro): 5/5 motor strength present throughout Extrem Other: venous exam: No significant superficial varicosities or spider telangiectasias, minimal edema General: No clubbing, No cyanosis and No edema Psych Appearance: grossly normal Mental Status: mental status grossly normal Speech and movement: Normal speech and movement present Results Reviewed Results Reviewed: Noninvasive arterial testing dated 04/27/2024 demonstrates DAHLIA on the right of 0.79 and on the left of 1.0. Written report and images were reviewed. Assessment & Plan Assessment & Plan (1) PAD (peripheral artery disease): Comment: 2020 - left leg angiogram in [place] Code(s): I73.9 - Peripheral vascular disease, unspecified Category: Medical Plan: In short patient has stable claudication. I did review the pathophysiology of peripheral vascular disease with the patient. In addition we did discuss routine conservative measures including a healthy diet and the importance of exercise and ambulation. We did discuss risk factor modification. The patient will continue to to follow-up with surveillance follow-up in approximately 1 year. Thank you for allowing us to participate in this patient's care. If there are any questions or concerns please do not hesitate to contact us. Orders: Orders US venous duplex LE BI 1 Week I73.9 - Peripheral vascular disease, unspecified Coding Level of Care Code Est Pt Level 4 (93059) Global (53626) Diagnoses PAD (peripheral artery disease) I73.9
== END 2024-06-08 15:10 | disposition home or self-care (01) ==
PROVIDERS: PCP Internal Medicine; Visit Provider Surgery Vascular Surgery
DX: I73.9 Peripheral vascular disease, unspecified (principal)
CPT/HCPCS: 99213

== ENCOUNTER 2024-07-08 15:08 | Outpatient (AMB) | payer OTHER, SELFPAY ==
[2024-07-08 15:21] VITALS: BP 172/82; PULSE 56; O2SAT 98; BMI 29.1
--- NOTE | 2024-07-08 15:21 | MHC.PC.OV ---
Vital Signs 07/08/24 15:21 Height 5 ft 5 in Weight 175 lb BMI 29.1 BP 172/82 H Blood Pressure Location Lt brachial Position Sitting Pulse 56 Pulse Source Pulse Oximeter Pulse Oximetry (%) 98 Oxygen Delivery Method Room Air Intake Visit Reasons: DM Allergies sacubitril [From Entresto] Allergy (Severe, Verified 07/08/24 15:21) Nausea and Vomiting fish derived [FISH] Allergy (Unknown, Verified 07/08/24 15:21) itchy,rash ferrous sulfate Allergy (Verified 07/08/24 15:21) Abdominal Pain valsartan Adverse Reaction (Intermediate, Verified 07/08/24 15:21) Cough terazosin Adverse Reaction (Verified 07/08/24 15:21) Diarrhea metformin Adverse Reaction (Unknown, Uncoded 07/08/24 15:21) mouth sore Tobacco use date assessed: 07/08/24 Dental Screening Dental Screen Date: 07/08/24 Did you have a dental visit in the last 12 months?: Yes Did you have a dental problem in the last 6 months where you did not have access to dental care?: No Was dental information given to patient?: Patient has dentist HPI DM HPI Details The patient is a 59-year-old female presenting with elevated blood pressure and concerns related to chronic kidney disease. She has a history of essential hypertension which was managed with nifedipine, spironolactone, and carvedilol. Despite an increase in nifedipine dosage two months ago, her blood pressure remains uncontrolled with recent readings of 170-200 mmHg. Previous readings fluctuated between 130-167 mmHg. The patient reports frustration with contacting her healthcare providers, as her calls are not returned. She also has congestive heart failure and believes some of her symptoms might have been attributed to dehydration, though recent symptoms include a salty taste in her mouth. She has noted a history of chronic kidney disease with a serum creatinine level of 1.6 mg/dL, elevated from the normal baseline of 1.3 mg/dL. Her GFR is reported at approximately 33 ml/min, indicating significant impairment. Additionally, the patient has hypercholesterolemia and peripheral arterial disease, contributing to walking-induced leg pain due to poor circulation. She attempts to manage Type 2 Diabetes Mellitus with dietary monitoring but encounters challenges. Most recent discussions included potential medication adjustments and concerns about long-standing kidney function issues due to diabetes and hypertension. She has received vaccinations for influenza and COVID-19. [facility] Medical History Heart failure with reduced ejection fraction (HFpEF) heart failure with preserved ejection fraction Cough Subclinical hypothyroidism Tinea versicolor Hypothyroidism Vitamin D deficiency Hypercholesteremia Anemia PAD (peripheral artery disease) CHF (congestive heart failure) Pericardial effusion Acute dermatitis Murmur, cardiac Diabetes Hypertension Surgical History History of cataract surgery History of revascularization procedure of lower extremity S/P complete hysterectomy Family History Father Prostate cancer Mother Hypertension Sister Hypertension Brother No problems noted. 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 Cognitive needs: No Hearing needs: No Vision needs: Yes Questionnaire PHQ-9 Over the last 2 weeks, how often have you been bothered by any of the following problems? 1. Little interest or pleasure in doing things: not at all 2. Feeling down, depressed, or hopeless: not at all 3. Trouble falling or staying asleep, or sleeping too much: not at all 4. Feeling tired or having little energy: not at all 5. Poor appetite or overeating: not at all 6. Feeling bad about yourself - or that you are a failure or have let yourself or your family down: not at all 7. Trouble concentrating on things, such as reading the newspaper or watching television: not at all 8. Moving or speaking so slowly that other people could have noticed. Or the opposite - being so fidgety or restless that you have been moving around a lot more than usual: not at all 9. Thoughts that you would be better off or of hurting yourself in some way: not at all Total score: 0 Depression Screening Interpretation: Negative Depression Screening Done: Yes Source: Developed by Drs. Vinh Garcia, Alicia Allred, Jordan Olvera and colleagues, with an educational mela from [employer]. Thrive Questionnaire Date Thrive assessed: 07/08/24 I am a: Patient What is your living situation today?: I have a steady place to live Within the past 12 months, did the food you bought not last and you didn't have the money to get more?: Never true Within the past 12 months, did you worry whether your food would run out before you got money to buy more?: Never true Do you have trouble paying for medicines?: No Do you have trouble getting transportation to medical appointments?: No Do you have trouble paying your heating and electricity bill?: No Do you have trouble taking care of your child, family member or friend?: No Do you have trouble with day-to-day activities such as bathing, preparing meals, shopping, managing finances, etc.?: No Are you currently unemployed and looking for a job?: Yes Are you interested in more education?: No Currently or been in a relationship where the following occur: No concerns reported THRIVE Score: 0 AUDIT C Alcohol Use Questionnaire (AUDIT-C) 1. How often do you have a drink containing alcohol?: Never 3. How often do you have six or more drinks on one occasion?: Never Total Score: 0 FABIO-7 AMB Questionnaire FABIO-7 Date FABIO - 7 assessed: 07/08/24 Feeling nervous, anxious, or on edge: 0 = Not at all Not being able to stop or control worryin = Not at all Worrying too much about different things: 0 = Not at all Trouble relaxin = Not at all Being so restless that it is hard to sit still: 0 = Not at all Becoming easily annoyed or irritable: 0 = Not at all Feeling afraid as if something awful might happen: 0 = Not at all Total FABIO-7 score (0-4 normal; 5-9 mild; 10-14 moderate; 15-21 severe): 0 Source: Developed by Drs. Vinh Garcia, Alicia Allred, Jordan Olvera and colleagues, with an educational mela from [employer]. Physical exam (Primary Care) Vital Signs: Last Vital Signs Pulse 56 07/08/24 15:21 BP 172/82 H 07/08/24 15:21 Pulse Ox 98 07/08/24 15:21 Oxygen Delivery Method Room Air 07/08/24 15:21 BMI result Body Mass Index 29.1 Tobacco/Smoking Status: Tobacco use Status Tobacco use date assessed 07/08/24 07/08/24 15:23 Patient Tobacco Use Status Never used Tobacco 07/08/24 15:23 Tobacco use type Cigarette 07/08/24 15:23 e-Cigarette/Vaping Use Never Used 07/08/24 15:23 PHQ-9: PHQ-9 Score PHQ-9: Total score 0 07/08/24 16:33 Depression Screening Interpretation: Negative Thrive Assessment: Date of Thrive Assessment Date Thrive assessed 07/08/24 07/08/24 15:23 Currently or been in a relationship where the following occur: No concerns reported Const General: alert; No acute distress Eyes Conjunctivae: conjunctivae normal Resp Auscultation: clear to auscultation bilaterally Cardio Rate: regular rate Rhythm: regular rhythm GI Inspection: Yes normal to inspection Extrem General: Yes normal to inspection and No edema Results AMB Hemoglobin A1c AMB Hemoglobin A1c 9.7 % Last Edit by Marti Perez CMA on 07/08/24 15:47 Results Reviewed Results Reviewed: Laboratory Last Values Hgb A1c (Clinic) 9.7 % (4.0-6.0) H 07/08/24 15:23 Coding Level of Care Code Est Pt Level 4 (23961) Complex EM visit Add On G2211 Diagnoses Type 2 diabetes mellitus with hyperglycemia E11.65 Cardiomyopathy I42.9 (HFpEF) heart failure with preserved ejection fraction I50.30 PAD (peripheral artery disease) I73.9 Hypertension I10 Hypercholesteremia E78.00 Hypothyroidism E03.9 Assessment & Plan Assessment & Plan (1) Type 2 diabetes mellitus with hyperglycemia: Code(s): E11.65 - Type 2 diabetes mellitus with hyperglycemia Category: Medical (2) Cardiomyopathy: Code(s): I42.9 - Cardiomyopathy, unspecified Category: Medical (3) (HFpEF) heart failure with preserved ejection fraction: Code(s): I50.30 - Unspecified diastolic (congestive) heart failure Category: Medical (4) PAD (peripheral artery disease): Comment: 2020 - left leg angiogram in [place] Code(s): I73.9 - Peripheral vascular disease, unspecified Category: Medical (5) Hypertension: Code(s): I10 - Essential (primary) hypertension Category: Medical (6) Hypercholesteremia: Code(s): E78.00 - Pure hypercholesterolemia, unspecified Category: Medical (7) Hypothyroidism: Code(s): E03.9 - Hypothyroidism, unspecified Category: Medical Plan - Essential Hypertension: Continue current antihypertensive regimen, consider consultation with a information technology officer for comprehensive management given concurrent renal impairment. - Congestive Heart Failure: Patient is advised to maintain current diuretics for fluid balance. - Chronic Kidney Disease: An urgent referral to a information technology officer for evaluation and plan co-management strategies with cardiology. - Hypercholesterolemia: Plan to re-evaluate lipid profile and assess medication efficacy. - Type 2 Diabetes Mellitus: Discuss potential initiation of weekly GLP-1 receptor agonist injections; monitor dietary intake and adjust based on glycemic control. - Peripheral Arterial Disease: Encourage dietary and lifestyle modifications; consider further vascular imaging if symptoms persist. - Health Maintenance: Recommend regular follow-ups including monitoring of blood pressure, renal function tests, and dietary counseling to address diabetes and hyperlipidemia. Orders: Orders AMB Hemoglobin A1c Today Z13.9 - Encounter for screening, unspecified Complete Blood Count Auto Diff Today E11.65 - Type 2 diabetes mellitus with hyperglycemia Comprehensive Met. Panel Today E11.65 - Type 2 diabetes mellitus with hyperglycemia Free T4 (Free Thyroxine) Today E11.65 - Type 2 diabetes mellitus with hyperglycemia Thyroid Stimulating Hormone Today E11.65 - Type 2 diabetes mellitus with hyperglycemia Vitamin B12 and Folate Today E11.65 - Type 2 diabetes mellitus with hyperglycemia Lipid Panel Today E11.65 - Type 2 diabetes mellitus with hyperglycemia, E78.00 - Pure hypercholesterolemia, unspecified Vitamin D 25-OH Total Today E11.65 - Type 2 diabetes mellitus with hyperglycemia Hemoglobin A1c Today E11.65 - Type 2 diabetes mellitus with hyperglycemia Referrals Nephrology Referral I10 - Essential (primary) hypertension Medications: New blood sugar diagnostic (FreeStyle Lite Strips) As directed check the BS QD 100 ea 3RF E11.65 - Type 2 diabetes mellitus with hyperglycemia, I10 - Essential (primary) hypertension tirzepatide (Mounjaro) for 4 weeks 2.5 mg (0.5 mL) subcut QWEEK 2 mL 3RF E11.65 - Type 2 diabetes mellitus with hyperglycemia Refilled triamcinolone acetonide 0.1% 1 appl topical BID 30 grams 0RF I10 - Essential (primary) hypertension
== END 2024-07-08 16:52 | disposition home or self-care (01) ==
PROVIDERS: PCP Internal Medicine; Visit Provider Internal Medicine
DX: E11.65 Type 2 diabetes mellitus with hyperglycemia (principal); I42.9 Cardiomyopathy, unspecified; I50.30 Unspecified diastolic (congestive) heart failure; I73.9 Peripheral vascular disease, unspecified; I10 Essential (primary) hypertension; E78.00 Pure hypercholesterolemia, unspecified; E03.9 Hypothyroidism, unspecified; Z13.9 Encounter for screening, unspecified

== ENCOUNTER → 2024-07-08 15:08 | Outpatient (BNVA) | payer OTHER, SELFPAY | PROVIDERS: PCP Internal Medicine; Visit Provider Internal Medicine | DX: E11.65 Type 2 diabetes mellitus with hyperglycemia (principal); I13.0 Hypertensive heart and chronic kidney disease with heart failure and stage 1 through stage 4 chronic kidney disease, or unspecified chronic kidney disease; E11.22 Type 2 diabetes mellitus with diabetic chronic kidney disease; N18.9 Chronic kidney disease, unspecified; I50.30 Unspecified diastolic (congestive) heart failure; I42.9 Cardiomyopathy, unspecified; I73.9 Peripheral vascular disease, unspecified; E78.00 Pure hypercholesterolemia, unspecified; E03.9 Hypothyroidism, unspecified | CPT/HCPCS: 83036; 96127 ==

== ENCOUNTER 2024-07-22 14:08 | Outpatient (REF) | payer BC, SELFPAY ==
[2024-07-22 16:04] LABS: Appearance Urine Clear; Color Urine Yellow; Glucose Urine UA 500 mg/dL (Negative); Leukocyte Esterase Urine Negative (Negative); Nitrite Urine Negative (Negative); Specific Gravity - Urine 1.015 (1.005-1.025); Urine Blood Negative (Negative); Urine Ketones Negative (Negative); Urine Protein Negative (Neg-Trace)
[2024-07-22 16:13] LABS: Alanine Aminotransferase 13 U/L (0-31); Albumin Level 4.4 g/dL (3.5-5.0); Alkaline Phosphatase 44 U/L (39-117); Anion Gap 11 (12-20); Aspartate Amino Transferase 18 U/L (5-31); Bilirubin Total 0.3 mg/dL (0.0-1.0); Blood Urea Nitrogen 36 mg/dL (9-16); Calcium 9.5 mg/dL (8.4-10.2); Carbon Dioxide 25 mmol/L (22-29); Chloride 108 mmol/L (96-108); Estimated Glomerular Filt Rate 32; Glucose Random 224 mg/dL (60-115); Potassium 5.2 mmol/L (3.3-5.1); Sodium 139 mmol/L (135-145); Total Protein 7.1 g/dL (6.5-8.0)
[2024-07-22 16:19] LABS: Parathyroid Hormone Intact 184.8 pg/mL (8.7-77.1)
[2024-07-22 16:39] LABS: Creatinine Urine 26.29 mg/dL; Total Protein Urine Random 9 mg/dL (<12)
--- OUTSIDE RECORDS SUMMARY | 2024-07-22 17:46 | XMS_ITS | Encounter Summary ---
Author Organization [employer] Address [address] [place] [address] Care Team Providers Care Java Technical Manager Name Role Phone Unavailable Primary Care Provider Unavailabl e Reason for Visit * Reason Onset Date Comments Appointment 01/27/2023 Encounter Details Date Type Department Care Team (Late st Contact Info) Description 01/27/2023 Telephone C ADULT DENTAL [address] [place], [place] [phone] Krunal Garcia DDS [address], [place] [phone] Appointment Social History Tobacco Use Types Packs/Day Years Used Date Smoking Tobacco: Never Passive Smoke Exposure: Never Smokeless Tobacco: Never Alcohol Use Standard Drinks/Week Comments Never 0 (1 standard drink = 0.6 oz pur e alcohol) Comments Unknown Sex and Gender Information Value Date Recorded Sex Assigned at Female 01/01/2023 9:34 AM EDT Legal Sex Female 9:33 AM EDT Gender Identity Female 01/01/2023 9:34 AM EDT Sexual Orientation Don't know 01/01/2023 9: 34 AM EDT COVID-19 Exposure Response Date Recorded In the last 10 days, have yo u been in contact with someone who was confirmed or suspected to have Coronavirus/COVID-19? No / Unsure 01/01/2023 12:17 PM EDT documented as of this encounter Miscellaneous Notes * Telephone Encounter - Carissa Valentinos - 01/27/2023 11:51 AM EDT Patient came in on 01/01 and referred to [facility] for RCT Had RCT done on 01/02. [facility] sent patient back to get filling on RCT tooth. Patient scheduled as a follow up to confirm what tx needs to be done afterward. When I called to schedule patient per dates offered by [facility], she stated that she contacted [facility] and they would be sending notes regarding her case. documented in this encounter Plan of Treatment Not on file documented as of this encounter Visit Diagnoses Not on filedocumented in this encounter
--- OUTSIDE RECORDS SUMMARY | 2024-07-22 17:46 | XMS_ITS | Data Portability ---
Author Organization [facility], ER [facility] Address [address] [place] [address] Care Team Providers Care Template Reproduction Technician Name Role Phone YON MEDEL Referring Provider DAVID BARNHART Primary Care Provider [phone] Assessment Encounter Date Assessment Date Assessment LastModified by Organization Details LastModified Time 08/31/2020 08/31/2020 Personally reviewed all pertinent laboratory and imaging studies prior to visit with patient. The visit today was conducted using video conferencing software (telemedicine) due to the current COVID pandemic. The patient had given prior consent to conduct the visit in such a manner and to bill accordingly. Ms. Cronin is a 55-year-old female with T2DM, HTN, and HLD who was scheduled in our clinic to discuss anemia. meka Not available 08/31/2020 18:14:09 10/16/2020 10/16/2020 Time spent in preparation: 5 minutes Time spent in conducting history and physical exam: 5 minutes Time spent counseling patient: 10 minutes Time spent documenting this visit: 10 minutes VISIT START TIME: 1:45pm VISIT END TIME: 2:00pm TOTAL TIME: 30 minutes Personally reviewed all pertinent laboratory and imaging studies prior to visit with patient. The visit today was conducted using video conferencing software (telemedicine) due to the current COVID pandemic. The patient had given prior consent to conduct the visit in such a manner and to bill accordingly. Ms. Cronin is a 55-year-old female with T2DM, HTN, and HLD who was scheduled in our clinic for a follow up visit to discuss anemia. meka Not available 10/16/2020 16:10:44 Plan of Treatment Reminders Order Date Submit Date Provider Last Modified By Organization Details Last Modified Time Details Appointments None recorded. Lab pancreatic elastase, stool 2020 021 [email or web address] [facility], [address] [place], [address], 15:30:27 fecal fat, qualitative , stool [address] Lab, [address] [place], [address], 15:49:04 Referral None recorded. Procedures colonoscopy procedure (PROC) - Miralax [address] Endoscopy [facility], [address] [place] [address], [id number], 10:54:34 Surgeries None recorded. Imaging None recorded. Medication Orders None recorded. Patient TargetsNo targets recorded. Patient Instructions Encounter Date Encounter Id Patient Instructions Last Modified By Organization Details Last Modified Time 08/31/2020 [id number] diet - low fodmap afotouhie Not availab le 08/31/2020 18:16:52 anemia: care instructions [email or web address] Not available 08/31/2020 18:16:52 10/16/2020 [id number] diarrhea: care instructions [email or web address] Not available 10/16/2020 16:12:33 anemia: care instructions [email or web address] Not available 10/16/2020 16:12:33 Reason for Referral None Reported. Results Created Date Observation Date Name Description Value Unit Range Abnormal Flag Note LastModifiedBy Organization Detail LastModifiedTime 08/16/1906/05/2020 XR, chest No observ ation record ed. [email or web address] Not Available 2020 16:24:00 Result Notes None recorded. Problems No Known Problems Procedures Surgical History Date Name Laterality Status Provider Name and Address Organization Details Recorded Time 09/14/19 Colonoscopy completed Juli Scott [facility] 10/11/2020 17:19:09 06/30/19 10 hysterectomy completed Dede De Leon [facility] 08/31/2020 16:57:34 Imaging Results Imaging Date Name Status LastModified by Organiz ation Details LastModified Time 06/05/2020 XR, chest completed [email or web address] Information no t available 08/18/2020 16:24:00 Procedure Notes None recorded. Medical Equipment None Reported. Allergies No known drug allergies Medications Name Sig Start Date Stop Date Status Note LastModified by Organization Details LastModified Time losartan 50 mg tablet TAKE 1 TABLET BY MOUTH ONCE DAILY active Not Available Not Available No t Available atorvastati n 40 mg tablet TAKE 1 TABLET BY MOUTH ONCE DAILY AT BEDTIME 08/31 completed Not Available Not Available Not Available carvedilol 6.25 mg tablet TAKE 1 TABLET BY MOUTH TWICE DAILY STOP METOPROLO L active Not Available Not Available No t Available atorvastati n 20 mg tablet TAKE 1 TABLET BY MOUTH AT BEDTIME active Not Available Not Available No t Available Glucagon Emergency Kit 1 mg solution for injection DIRECTED IF UNCONSCIO US THEN ER active Not Available Not Available No t Available metoprolol succinate ER 50 mg tablet,exte nded release 24 hr TAKE 1 TABLET BY MOUTH ONCE DAILY 08/31 completed Not Available Not Available Not Available clindamycin HCl 150 mg capsule TAKE 2 CAPSULES BY MOUTH THREE TIMES DAILY 08/31 completed Not Available Not Available Not Available chlorthalid one 25 mg tablet TAKE 1 TABLET BY MOUTH ONCE DAILY active Not Available Not Available No t Available terazosin 1 mg capsule TAKE 1 CAPSULE BY MOUTH AT BEDTIME CAUSES DIZZINESS GET OUT OF BED SLOWLY 08/31 completed Not Available Not Available Not Available amlodipine 5 mg tablet TAKE 1 TABLET BY MOUTH ONCE DAILY DISCONTIN UE AMLODIPIN E 2.5MG 08/31 completed Not Available Not Available Not Available triamcinolo ne acetonide 0.1 % topical cream DIRECTED active Not Available Not Available No t Available spironolact one 25 mg tablet TAKE 1 TABLET BY MOUTH ONCE DAILY active Not Available Not Available No t Available glimepiride 2 mg tablet TAKE 1 TABLET BY MOUTH IN THE MORNING active Not Available Not Available No t Available levothyroxi ne 25 mcg tablet TAKE 1 & 1 2 (ONE & ONE HALF) TABLETS BY MOUTH ONCE DAILY 10/16 completed Not Available Not Available Not Available glimepiride 1 mg tablet TAKE 1 TABLET BY MOUTH BEFORE BREAKFAST OR DIRECTED 08/31 completed Not Available Not Available Not Available meloxicam 7.5 mg tablet TAKE 1 TABLET BY MOUTH ONCE DAILY 10/16 completed Not Available Not Available Not Available terbinafine HCl 250 mg tablet TAKE 1 TABLET BY MOUTH ONCE DAILY 10/16 completed Not Available Not Available Not Available pantoprazol e 40 mg tablet,jay yed release TAKE 1 TABLET BY MOUTH ONCE DAILY 08/31 completed Not Available Not Available Not Available clotrimazol e-betametha sone 1 %-0.05 % topical cream APPLY CREAM TWICE DAILY 10/16 completed Not Available Not Available Not Available mupirocin 2 % topical ointment APPLY OINTMENT TOPICALLY TO AFFECTED AREA TWICE DAILY 10/16 completed Not Available Not Available Not Available furosemide 20 mg tablet TAKE 1 TABLET BY MOUTH TWICE DAILY active Not Available Not Available No t Available losartan 100 mg tablet TAKE 1 TABLET BY MOUTH ONCE DAILY 08/31 completed Not Available Not Available Not Available fluticasone propionate 50 mcg/actuati on nasal spray,suspe nsion USE 2 SPRAY(S) IN EACH NOSTRIL ONCE DAILY active Not Available Not Available No t Available acarbose 25 mg tablet TAKE 1 TABLET BY MOUTH BEFORE MEAL(S) BREAKFAST AND LUNCH WITH FIRST BITE OF FOOD active Not Available Not Available No t Available lactulose 10 gram/15 mL oral solution TAKE 15 ML BY MOUTH ONCE TO TWICE DAILY active Not Available Not Available No t Available Lantus Solostar U-100 Insulin 100 unit/mL (3 mL) subcutaneou s pen INJECT 20 UNITS SUBCUTANE OUSLY ONCE DAILY OR DIRECTED active Not Available Not Available No t Available FreeStyle Enrike 14 Day [place] USE TO CHECK BLOOD GLUCOSE THREE TIMES A DAY active Not Available Not Available No t Available FreeStyle Enrike 14 Day Sensor kit USE TO CHECK GLUCOSE THREE TIMES DAILY active Not Available Not Available No t Available BD Xuan 2nd Gen Pen Needle 32 gauge x USE 1 ONCE DAILY active Not Available Not Available No t Available Fluzone Quad (PF) 60 mcg (15 mcg x 4)/0.5 mL IM syringe PHARMACIS T ADMINISTE RED IMMUNIZAT ION ADMINISTE RED AT TIME OF DISPENSIN G active Not Available Not Available No t Available Vitals Date Recorded Body height Provider Name an d Address Organization Details Last Updated DateTime 08/31/2020 160.02 cm Dede Mariecher [facility] 08/31/2020 16:49:47 Date Recorded Body mass index (BMI) Body weight Provider Name and Address Organization Details Last Updated DateTime 08/31/2020 34.4 kg/m2 87840.92 g Dede Mariecher [facility] 08/31/2020 16:50:09 Date Recorded Body height Provider Name an d Address Organization Details Last Updated DateTime 10/16/2020 160.02 cm Dedeclemencia MarieHaley [facility] 10/16/2020 15:16:26 Date Recorded Body mass index (BMI) Body weight Provider Name and Address Organization Details Last Updated DateTime 10/16/2020 31.9 kg/m2 41189.63 g Dede Mariecher [facility] 10/16/2020 15:16:50 Social History Question Answer Notes LastModified by Organizat ion Details LastModified Time Tobacco Smoking Status Never Smoker Dede ye [facility] 08/31/2020 16:56:24 Do You Have An Advance Directive? No Information not available 08/31/2020 What Is Your Level Of Alcohol Consumption? None Information not available 08/31/2020 How Many Years Have You Consumed Alcohol? 0 Information not available 08/31/2020 Have You Been To An Area Known To Be High Risk For COVID-19? No Information not available 10/16/2020 Which Illicit Or Recreational Drugs Have You Used? 0 Information not available 08/31/2020 Do You Or Have You Ever Used E-cigarettes Or Vape? Never Used Electronic Cigarettes Information not available 08/31/2020 Education Post Graduate Informatio n not available 08/31/2020 What Is Your Occupation? Teacher Information not available 08/31/2020 How Many Days In The Past Year Have You Had A Heavy Drinking Consumption (4+ Female, 5+ Male)? 0 Information not available 08/31/2020 How Many Years Have You Used Illicit Or Recreational Drugs? 0 Information not available 08/31/2020 Marital Status Single Informati on not available 08/31/2020 What Was The Date Of Your Most Recent Tobacco Screening? 10/16/2020 Information not available 10/16/2020 Have You Ever Been Counseled For Unhealthy Alcohol Use? No Information not available 08/31/2020 At What Age Did You Start Smoking Tobacco? 0 Information not available 08/31/2020 Do You Or Have You Ever Used Smokeless Tobacco? Never Used Smokeless Tobacco Information not available 08/31/2020 How Much Tobacco Do You Smoke? No Information not available 08/31/2020 On What Date Was Tobacco Cessation Counseling Provided? 10/16/2020 Information not available 10/16/2020 How Many Years Have You Smoked Tobacco? 0 Information not available 08/31/2020 Sex: Female Functional Status None recorded. Mental Status None recorded. Family History Relationship Description Onset Age of this Age Resolved Age Notes LastModified by Organization Details LastModified Time Father Carcinoma of prostate Not available 09/2020 16:55:16 Medical History Condition Response Anemia Y Gynecological HistoryNo gynecological history recorded. Obstetrics History GPAL:G 0 P 0 0 0 0 Immunizations Vaccine Type Date Status Note Provider Nam e and Address Organization Details Recorded Time SARS-COV-2 (COVID-19) vaccine, UNSPECIFIED completed KEZIA Márquez - [facility] 10/16/2020 15:20:04 Past Encounters Encounter ID Performer Location Encounter Start Date Encounter Closed Date Diagnosis/Indication Diagnosis SNOMED-CT Code Diagnosis ICD10 Code Diagnosis Note [id number] ORION SEAY MD [facility] [address] [facility] [place] [id number] 08/31/2020 15:51:54 09/01/2020 14:18:50 Anemia 230958868 D64.9 Patient was referred to us by her hematologi st for further evaluation of anemia (hemoglobi n 11) in the setting of not having had a colonoscop y for 20 years. She is at average risk for developing CRC and has no alarm features at this time however would benefit from a diagnostic colonoscop y.- Discussed importance of performing colonoscop y for further evaluation , patient in agreement- Colonoscop y ordered. I have discussed with the patient the indication s, risks, benefits, and alternativ es of the procedure. I have advised the patient of potential complicati ons, including but not limited to medication reaction, infection, bleeding, perforatio n, and missed pathology. Sedation was discussed. The patient understand s and agrees to proceed. Abdominal bloating 33153 9008 R14.0 This has been a new and progressiv madison worsening issue for the patient.- Advised to start following a low FODMAP diet - Advised to avoid carbonated beverages, drinking through straws, excessive gum chewing, foods with high fructose load such as juices, or artificial sweeteners - Suggested continuing to avoid lactose [id number] ORION SEAY MD [facility] [address] [facility] [place] [address] 10/16/2020 14:28:37 10/16/2020 16:29:00 Anemia [id number] D64.9 Patient was referred to us by her hematologi st for further evaluation of anemia with a hemoglobin of 11 and a peripheral smear showing evidence of normocytic normochrom ic anemia with slight elevation in RDW and an elevated serum ferritin level of 310. These findings are suggestive of anemia of chronic disease. We did perform a colonoscop y in 08/2020 which showed only internal and external hemorrhoid s. - Discussed nature of anemia of chronic disease with the patient and discussed that there is no indication for further endoscopic evaluation at this time - Recommend continuing to follow up with PCP in this regard Abdominal bloating 84030 9008 R14.0 This has been an ongoing issue for the patient but appears to be improving with dietary changes. - Advised to start following a low FODMAP diet - Advised to continue to avoid carbonated beverages, drinking through straws, excessive gum chewing, foods with high fructose load such as juices, or artificial sweeteners - Suggested continuing to avoid lactose Diarrhea 13711181 R19.7 Patient reports occasional diarrhea with ingestion of foods with moderate to high fat content. - Discussed lifestyle modificati ons and avoidance of high fat foods with patient - Will check fecal pancreatic elastase and fecal fat level Health Concerns Section Related Observation LastModified by Organization Detai ls LastModified Time None Recorded Concern Status LastModified by Organization Details LastModified Time None Recorded Advance Directives Directive N: Payers Encounter Date Sequence Insurance Name Policy Number Policy Oswald Covered Member ID Oswald Member ID Guarantor Name 08/31/2020 [place] [facility] [id number] Vesta Cronin [id number] Vesta Cronin 10/16/2020 1 [place] [facility] ([facility]) [id number] Vesta Cronin [id number] Vesta Cronin Notes Date Note Type Note Provider Name and Address Organization Details Recorded Time 08/31/2020 text/html Ms. Cronin is a 55-year-old female with T2DM, HTN, and HLD who was scheduled in our clinic to discuss anemia. She states that she is feeling well today. She states that she occasionally experiences upper abdominal pain intermittently. She denies nausea, vomiting, constipation, diarrhea, or unintentional weight loss. She occasionally feels fatigued but denies any dizziness. She had a colonoscopy done 20 years ago during which she was found to have diverticulosis. She also reports significant bloating which has been worsening over time. She denies drinking carbonated beverages, does not drink through straws, and does not use artificial sweeteners. She denies tobacco, EtOH use, or illicit drug use. Her family history is not significant for colon cancer or IBD. She has had a hysterectomy in the past but no other abdominal surgeries. ORION SEAY MD [address] [place], [address], [facility] 08/31/2020 18:17:13 10/16/2020 text/html Ms. Cronin is a 55-year-old female with T2DM, HTN, and HLD who was scheduled in our clinic for a follow up visit to discuss anemia. During our previous visit we discussed her anemia for which she was sent to our clinic. Her basic laboratory analyses were significant for a hemoglobin of 11 and a peripheral smear showing evidence of normocytic normochromic anemia with slight elevation in RDW and an elevated serum ferritin level of 310. We did perform a colonoscopy in 08/2020 which showed only internal and external hemorrhoids. She states that she is feeling well today. She states that she occasionally experiences loose stools with eating foods with high fat content. She denies nausea, vomiting, constipation, or unintentional weight loss. She also reports that her abdominal bloating has improved since following the low FODMAPs diet and making some dietary modifications. She denies tobacco, EtOH use, or illicit drug use. Her family history is not significant for colon cancer or IBD. She has had a hysterectomy in the past but no other abdominal surgeries. ORION SEAY MD [address] [place], [address], [facility] 10/16/2020 16:12:58 OBGyn Episode No OBEpisode recorded.
== END 2024-07-22 14:09 | disposition home or self-care (01) ==
LOC: HO.LAB 14:08
PROVIDERS: PCP Internal Medicine; Referring Provider Internal Medicine; Visit Provider Internal Medicine Hypertension Specialist
DX: I12.9 Hypertensive chronic kidney disease with stage 1 through stage 4 chronic kidney disease, or unspecified chronic kidney disease (principal); N18.30 Chronic kidney disease, stage 3 unspecified
CPT/HCPCS: 36415; 80053; 81003; 82570; 83970; 84156

== ENCOUNTER 2024-07-22 14:08 | Outpatient (AMB) | payer BC, SELFPAY ==
[2024-07-22 14:08] VITALS: BP 138/62; PULSE 67; O2SAT 98; BMI 29.5
--- NOTE | 2024-07-22 14:08 | HO.NEPHOV_ITS ---
Vital Signs 07/22/24 14:08 Height 5 ft 5 in Weight 177 lb BMI 29.5 BP 138/62 Blood Pressure Location Lt brachial Position Sitting Pulse 67 Pulse Source Pulse Oximeter Pulse Oximetry (%) 98 Oxygen Delivery Method Room Air Intake Visit Reasons: INP: Essential (primary) hypertension Marketing Production Coordinator Required: No Accompanied by: Self / Same As Patient Allergies sacubitril [From Entresto] Allergy (Severe, Verified 07/22/24 14:10) Nausea and Vomiting fish derived [FISH] Allergy (Unknown, Verified 07/22/24 14:10) itchy,rash ferrous sulfate Allergy (Verified 07/22/24 14:10) Abdominal Pain valsartan Adverse Reaction (Intermediate, Verified 07/22/24 14:10) Cough terazosin Adverse Reaction (Verified 07/22/24 14:10) Diarrhea metformin Adverse Reaction (Unknown, Uncoded 07/08/24 15:21) mouth sore Medication List - Last Reconciled 07/22/24 by Marcos Romero MD aspirin 81 mg PO DAILY blood pressure monitor (Blood Pressure Kit) As directed blood sugar diagnostic (FreeStyle Lite Strips) As directed check the BS QD carvedilol (Coreg) 12.5 mg PO BID empagliflozin (Jardiance) 10 mg PO DAILY furosemide 20 mg PO QAM glipizide 10 mg PO BID hydralazine 20 mg (2 x 10 mg) PO BID ketoconazole 2% 1 appl topical DAILY nifedipine ER 60 mg PO DAILY rosuvastatin 20 mg PO DAILY spironolactone (Aldactone) 25 mg PO DAILY tirzepatide (Mounjaro) 2.5 mg (0.5 mL) subcut QWEEK triamcinolone acetonide 0.1% 1 appl topical BID HPI Comments Details: Sr Lemons is a pleasant 59-year-old woman with a history of diabetes mellitus hypertension for almost 20 years. She was peripheral as disease. She has had resistant hypertension requiring at least 5 different medications. She has been referred for management of hypertension and chronic kidney disease. Recent serum creatinine was 1.6 mg/dL EGFR of 30 mL/minute. She has a history of heart failure with preserved ejection fraction. She will be followed by Cardiology. She has not tolerated Entresto in the past. Valsartan gave her some cough. At present she is on spironolactone and hydralazine and carvedilol. She underwent angiogram in [place]. She has peripheral vascular disease. She did undergo Doppler ultrasonogram of renal arteries in 2022. There was no definite evidence of renal artery stenosis at the time. [facility] Medical History (Updated 07/22/24 @ 14:36 by Marcos Romero MD) Heart failure with reduced ejection fraction (HFpEF) heart failure with preserved ejection fraction Cough Subclinical hypothyroidism Tinea versicolor Hypothyroidism Vitamin D deficiency Hypercholesteremia Anemia PAD (peripheral artery disease) CHF (congestive heart failure) Pericardial effusion Acute dermatitis Murmur, cardiac Diabetes Hypertension Surgical History History of cataract surgery History of revascularization procedure of lower extremity S/P complete hysterectomy Family History Father Prostate cancer Mother Hypertension Sister Hypertension Brother No problems noted. 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 Cognitive needs: No Hearing needs: No Vision needs: Yes Review of Systems Const Denies fever(s) and Denies weight loss Card Denies chest pain Resp Denies cough and Denies hemoptysis GI Denies abdominal pain, Denies diarrhea and Denies nausea Musc Denies back pain Neuro Denies focal weakness Physical Exam Vital Signs: Last Vital Signs Pulse 67 07/22/24 14:08 BP 138/62 07/22/24 14:08 Pulse Ox 98 07/22/24 14:08 Oxygen Delivery Method Room Air 07/22/24 14:08 BMI result Body Mass Index 29.5 Comfortable Neck supple no JVD. Lungs entry equal no rales. Heart S1-S2 heard no gallop or rub. Abdomen soft nontender. Neuro alert awake oriented. No asterixis. Extremities no edema. Results Reviewed Nephrology Results: Hgb 10.5 g/dl (12.0-16.0) L 03/29/24 WBC 3.9 X10*3/uL (4.8-10.8) L 03/29/24 Plt Count 215 X10*3/uL (160-400) 03/29/24 Sodium 142 mmol/L (135-145) 03/29/24 Potassium 5.0 mmol/L (3.3-5.1) 03/29/24 Chloride 109 mmol/L (96-108) H 03/29/24 Carbon Dioxide 24 mmol/L (22-29) 03/29/24 BUN 38 mg/dL (9-16) H 03/29/24 Creatinine 1.61 mg/dL (0.5-1.4) H 03/29/24 Calcium 10.0 mg/dL (8.4-10.2) 03/29/24 Urine Protein 30 (1+) mg/dL (Neg-Trace) H 03/29/24 Urine Creatinine 102.87 mg/dL 03/29/24 Assessment & Plan Assessment & Plan (1) Uncontrolled hypertension: Comment: Resistant hypertension in the setting of chronic kidney disease and possibility as disease. Doppler ultrasonogram did not reveal any renal artery stenosis in 2022. Code(s): I10 - Essential (primary) hypertension Category: Medical Plan: Today blood pressure seems better controlled. We will obtain a 24 hour ambulatory blood pressure monitoring. Encouraged her to stand was low-sodium diet. No changes were made in the medications today. Based on 24 hour ABP M, I will adjust medications. (2) CKD (chronic kidney disease) stage 3, GFR 30-59 ml/min: Comment: Most likely due to underlying hypertensive diabetic kidney disease. No evidence of obstruction based on recent ultrasonogram. Glomerular nephritis/interstitial disease are unlikely based on the bland urine sediments Code(s): N18.30 - Chronic kidney disease, stage 3 unspecified Category: Medical Plan: Workup initiated. Goal is to slow the progression of renal disease. Maintain blood pressure less than 130/80 Maintain A1c less than 7%. Continue overt nephrotoxic agents including NSAIDs. SGLT2 inhibitors (3) Anemia: Comment: Multifactorial. 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 No absolute indication for Epogen at this time. (4) (HFpEF) heart failure with preserved ejection fraction: Code(s): I50.30 - Unspecified diastolic (congestive) heart failure Category: Medical Plan: Currently appears compensated Continue with current regimen and follow up with Cardiology. Discussed importance of low-sodium diet Plan History of hypothyroidism. It is unclear if she is taking any Synthroid at this time. Encouraged her to follow up with PCP. Orders: Orders Comprehensive Met. Panel Today I10 - Essential (primary) hypertension, N18.30 - Chronic kidney disease, stage 3 unspecified Parathyroid Hormone Intact Today I10 - Essential (primary) hypertension, N18.30 - Chronic kidney disease, stage 3 unspecified Creatinine Urine Today I10 - Essential (primary) hypertension, N18.30 - Chronic kidney disease, stage 3 unspecified Total Protein Urine Random Today I10 - Essential (primary) hypertension, N18.30 - Chronic kidney disease, stage 3 unspecified UA and rflx microscopic Today I10 - Essential (primary) hypertension, N18.30 - Chronic kidney disease, stage 3 unspecified AMB 24 HR B/P Monitor PLACEMENT Today I10 - Essential (primary) hypertension Coding Level of Care Code New Pt Level 5 (05618) Diagnoses Uncontrolled hypertension I10 CKD (chronic kidney disease) stage 3, GFR 30-59 ml/min N18.30 Anemia D64.9 (HFpEF) heart failure with preserved ejection fraction I50.30
== END 2024-07-22 14:32 | disposition home or self-care (01) ==
PROVIDERS: PCP Internal Medicine; Referring Provider Internal Medicine; Visit Provider Internal Medicine Hypertension Specialist
DX: I10 Essential (primary) hypertension (principal); N18.30 Chronic kidney disease, stage 3 unspecified; D64.9 Anemia, unspecified; I50.30 Unspecified diastolic (congestive) heart failure
CPT/HCPCS: 99204

== ENCOUNTER → 2024-08-20 14:55 | Outpatient (BNVA) | payer BC, SELFPAY | PROVIDERS: PCP Internal Medicine; Visit Provider Internal Medicine Hypertension Specialist | DX: Z71.2 Person consulting for explanation of examination or test findings (principal) | CPT/HCPCS: 93786; 93788 ==

== ENCOUNTER 2024-08-23 14:49 | Outpatient (AMB) | payer BC, SELFPAY ==
--- NOTE | 2024-08-23 14:50 | HO.NEPHOV_ITS ---
Vital Signs 08/23/24 14:51 Height 5 ft 5 in Weight 179 lb BMI 29.8 BP 154/64 H Blood Pressure Location Lt brachial Position Sitting Pulse 69 Pulse Source Pulse Oximeter Pulse Oximetry (%) 100 Oxygen Delivery Method Room Air Intake Visit Reasons: heart failure with preserved ejection fraction Mis Specialist Required: No Accompanied by: Self / Same As Patient Allergies sacubitril [From Entresto] Allergy (Severe, Verified 08/23/24 14:56) Nausea and Vomiting fish derived [FISH] Allergy (Unknown, Verified 08/23/24 14:56) itchy,rash ferrous sulfate Allergy (Verified 08/23/24 14:56) Abdominal Pain valsartan Adverse Reaction (Intermediate, Verified 08/23/24 14:56) Cough terazosin Adverse Reaction (Verified 08/23/24 14:56) Diarrhea metformin Adverse Reaction (Unknown, Uncoded 07/08/24 15:21) mouth sore Medication List - Last Reconciled 08/23/24 by Marcos Romero MD aspirin 81 mg PO DAILY blood pressure monitor (Blood Pressure Kit) As directed blood sugar diagnostic (FreeStyle Lite Strips) As directed check the BS QD carvedilol (Coreg) 12.5 mg PO BID empagliflozin (Jardiance) 10 mg PO DAILY furosemide 20 mg PO QAM glipizide 10 mg PO BID hydralazine 20 mg (2 x 10 mg) PO BID ketoconazole 2% 1 appl topical DAILY nifedipine ER 60 mg PO DAILY rosuvastatin 20 mg PO DAILY spironolactone 25 mg PO DAILY tirzepatide (Mounjaro) 2.5 mg (0.5 mL) subcut QWEEK triamcinolone acetonide 0.1% 1 appl topical BID HPI Comments Details: Sr Lemons is a pleasant 59-year-old woman with a history of diabetes mellitus and hypertension for almost 20 years. She was peripheral as disease. She has had resistant hypertension requiring at least 5 different medications. She has been referred for management of hypertension and chronic kidney disease. Recent serum creatinine was 1.6 mg/dL EGFR of 30 mL/minute. She has a history of heart failure with preserved ejection fraction. She will be followed by Cardiology. She has not tolerated Entresto in the past. Valsartan gave her some cough. At present she is on spironolactone and hydralazine and carvedilol. She underwent angiogram in [place]. She has peripheral vascular disease. She did undergo Doppler ultrasonogram of renal arteries in 2022. There was no definite evidence of renal artery stenosis at the time. [facility] Medical History (Updated 08/23/24 @ 15:09 by Marcos Romero MD) Heart failure with reduced ejection fraction (HFpEF) heart failure with preserved ejection fraction Cough Subclinical hypothyroidism Tinea versicolor Hypothyroidism Vitamin D deficiency Hypercholesteremia Anemia PAD (peripheral artery disease) CHF (congestive heart failure) Pericardial effusion Acute dermatitis Murmur, cardiac Diabetes Hypertension Surgical History History of cataract surgery History of revascularization procedure of lower extremity S/P complete hysterectomy Family History Father Prostate cancer Mother Hypertension Sister Hypertension Brother No problems noted. 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 Cognitive needs: No Hearing needs: No Vision needs: Yes Physical Exam Vital Signs: Last Vital Signs Pulse 69 08/23/24 14:51 BP 154/64 H 08/23/24 14:51 Pulse Ox 100 08/23/24 14:51 Oxygen Delivery Method Room Air 08/23/24 14:51 BMI result Body Mass Index 29.8 Comfortable Neck supple no JVD. Lungs entry equal no rales. Heart S1-S2 heard no gallop or rub. Abdomen soft nontender. Neuro alert awake oriented. No asterixis. Extremities no edema. Results Reviewed Nephrology Results: Sodium 139 mmol/L (135-145) 07/22/24 Potassium 5.2 mmol/L (3.3-5.1) H 07/22/24 Chloride 108 mmol/L (96-108) 07/22/24 Carbon Dioxide 25 mmol/L (22-29) 07/22/24 BUN 36 mg/dL (9-16) H 07/22/24 Creatinine 1.62 mg/dL (0.5-1.4) H 07/22/24 Calcium 9.5 mg/dL (8.4-10.2) 07/22/24 PTH Intact 184.8 pg/mL (8.7-77.1) H 07/22/24 Urine Protein Negative mg/dL (Neg-Trace) 07/22/24 Urine Creatinine 26.29 mg/dL 07/22/24 Assessment & Plan Assessment & Plan (1) Uncontrolled hypertension: Comment: Resistant hypertension in the setting of chronic kidney disease and possibility as disease. Doppler ultrasonogram did not reveal any renal artery stenosis in 2022. Code(s): I10 - Essential (primary) hypertension Category: Medical Plan: Today blood pressure seems better controlled. s/p 24 hour ambulatory blood pressure monitoring. Encouraged her to stand was low-sodium diet. Med Changes: Stop Furosemide 20 mg QD Change Spironolactone 25 mg QD to Aldactazide 25-25 QD Change Hydralazine 20 mg BID to 25 mg TID (2) CKD (chronic kidney disease) stage 3, GFR 30-59 ml/min: Comment: Most likely due to underlying hypertensive diabetic kidney disease. No evidence of obstruction based on recent ultrasonogram. Glomerular nephritis/interstitial disease are unlikely based on the bland urine sediments A1C has been elevated Code(s): N18.30 - Chronic kidney disease, stage 3 unspecified Category: Medical Plan: Goal is to slow the progression of renal disease. Maintain blood pressure less than 130/80 Maintain A1c less than 7%. Continue to avoid nephrotoxic agents including NSAIDs. SGLT2 inhibitors as indicated (3) Anemia: Comment: Multifactorial. 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 No absolute indication for Epogen at this time. (4) (HFpEF) heart failure with preserved ejection fraction: Code(s): I50.30 - Unspecified diastolic (congestive) heart failure Category: Medical Plan: Currently appears compensated Continue with current regimen and follow up with Cardiology. Discussed importance of low-sodium diet Plan History of hypothyroidism. It is unclear if she is taking any Synthroid at this time. Encouraged her to follow up with PCP. Orders: Orders Basic Metabolic Panel 2 Weeks N18.30 - Chronic kidney disease, stage 3 unspecified Medications: New spironolacton-hydrochlorothiaz 25-25 mg 1 tab PO DAILY 90 tabs 0RF Changed From hydralazine 20 mg (2 x 10 mg) PO BID 360 tabs 2RF To hydralazine 25 mg PO TID 270 tabs 2RF Discontinued spironolactone Discontinued Reason: Doctor's Order 25 mg PO DAILY 90 tabs 3RF Coding Level of Care Code Est Pt Level 4 (87240) Diagnoses Uncontrolled hypertension I10 CKD (chronic kidney disease) stage 3, GFR 30-59 ml/min N18.30 Anemia D64.9 (HFpEF) heart failure with preserved ejection fraction I50.30
[2024-08-23 14:51] VITALS: BP 154/64; PULSE 69; O2SAT 100; BMI 29.8
--- OUTSIDE RECORDS SUMMARY | 2024-08-23 17:04 | XMS_ITS | Clinical Summary ---
Author Organization [employer] Address [address] [facility] [address] [place] [address] Care Team Providers Care Security Services Manager Name Role Phone Unavailable Primary Care Provider Unavailabl e Allergies Active Allergy Reactions Criticality Noted Date Comments Iron Hives 03/28/2023 Shellfish Allergy 10/21/2023 Medications carvedilol (Coreg) 3.125 MG tablet TAKE 1 TABLET ORALLY 2 TIMES A DAY MUST ADMINISTER WITH A MEAL/FOOD 4 Active amLODIPine (Norvasc) 5 MG tablet Take 5 mg by mouth Once per day. 3 Active furosemide (Lasix) 20 MG tablet Take 20 mg by mouth Once per day. 4 Active glipiZIDE (Glucotrol) 10 MG tablet Take 10 mg by mouth 2 times daily. 4 Active hydrALAZINE (Apresoline) 10 MG tablet Take 10 mg by mouth 3 times daily. 4 Active NIFEdipine XL (Procardia XL) 30 MG 24 hr tablet Take 30 mg by mouth Once per day. 4 Active prednisoLONE Sodium Phosphate 6.7 (5 Base) MG/5ML solution GARGLE AND SWALLOW 5ML BY MOUTH 2 TIMES A DAY FOR 7 DAYS 4 Active rosuvastatin (Crestor) 20 MG tablet Take 20 mg by mouth Once per day. 4 Active spironolactone (Aldactone) 25 MG tablet Take 25 mg by mouth Once per day. 4 Active aspirin 81 MG EC tablet Take 81 mg by mouth Once per day. Active D3-1000 25 MCG (1000 UT) capsule Take 25 mcg by mouth Once per day. 4 Active Jardiance 10 MG Take 10 mg by mouth Once per day. 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 Dental caries 01/01/2023 Encounters Date Type Department Care Team Description 05/25/2024 3:00 PM EST Office Visit [facility] ADULT DENTAL [address] [place] [address] Fox Solomon, NADIYA Open fracture of tooth, initial encounter (Primary Dx) 05/25/2024 10:00 AM EST Office Visit [facility] ADULT DENTAL [address] [place] [address] Juanito Fox, NADIYA Open fracture of tooth, initial encounter (Primary Dx) from Last 3 Months Social History Tobacco Use Types Packs/Day Years Used Date Smoking Tobacco: Never Passive Smoke Exposure: Never Smokeless Tobacco: Never Tobacco Cessation:Counseling Given: No Alcohol Use Standard Drinks/Week Comments Never 0 (1 standard drink = 0.6 oz pur e alcohol) Comments Unknown Sex and Gender Information Value Date Recorded Sex Assigned at Female 01/01/2023 9:34 AM EDT Legal Sex Female 9:33 AM EDT Gender Identity Female 01/01/2023 9:34 AM EDT Sexual Orientation Don't know 01/01/2023 9: 34 AM EDT Last Filed Vital Signs Vital Sign Reading Time Taken Comments Blood Pressure 180/70 05/25/2024 3:28 PM EST Pulse - - Temperature - - Respiratory Rate - - Oxygen Saturation - - Inhaled Oxygen Concentration - - Weight - - Height - - Body Mass Index - - Plan of Treatment Health Maintenance Due Date Last Done Comments CT Colonography 1964 Colonoscopy 1964 Colorectal Cancer Screening 1964 Dental Oral Exam 1964 Dental Prophylaxis 1964 Depression Screening 1964 FIT DNA/Cologuard 1964 FIT 1964 FOBT 1964 HIV Screening 1964 SDOH Screening 1964 Sigmoidoscopy 1964 Alcohol/Substance Use Screening 1976 Hepatitis C Screening 01/30/1982 DTaP/Tdap/Td Vaccines (1 - Tdap) 01/30/1983 Pap Smear 01/30/1985 Cervical Cancer Screening 01/30/1994 HPV/Cotest 01/30/1994 Mammogram 2004 Pneumococcal Vaccine: 50+ Years (1 of 1 - PCV) 01/30/2014 Zoster Vaccines (1 of 2) 01/30/2014 Influenza Vaccine (#1) 2024 03/26/2023, 2021 Tobacco Screening 05/25/2025 05/25/2024 Dental X-Ray: Bitewings 05/26/2025 05/25/2024, 10/20 Dental X-Ray: Full Mouth 01/02/2026 01/01/2023 RSV Patients and Patients Aged 60 years or older (1 - 1-dose 75+ series) 01/30/2039 COVID-19 Vaccine Completed 04/01/2024, , 07/16/2021, Additional history exists HIB Vaccines Aged Out No longer eligi ble based on patient's age to complete this topic HPV Vaccines Aged Out No longer eligi ble based on patient's age to complete this topic Hepatitis A Vaccines Aged Out No long er eligible based on patient's age to complete this topic Hepatitis B Vaccines Aged Out No long er eligible based on patient's age to complete this topic IPV Vaccines Aged Out No longer eligi ble based on patient's age to complete this topic Meningococcal Vaccine Aged Out No nikos shruthi eligible based on patient's age to complete this topic Pneumococcal Vaccine: Pediatrics (0 to 5 Years) and At-Risk Patients (6 to 49) Years) Aged Out No longer eligible based on patient's age to complete this topic RSV under 20 months Aged Out No longe r eligible based on patient's age to complete this topic Rotavirus Vaccines Aged Out No longer eligible based on patient's age to complete this topic Procedures Procedure Name Priority Date/Time Associated Diagnosis Comments 15 EXTRACTION, ERUPTED TOOTH OR EXPOSED ROOT (ELEVATION/FORCEPS REMOVAL) Routine 05/25/2024 3:00 PM EST Open fracture of tooth, initial encounter INTRAORAL - PERIAPICAL FIRST RADIOGRAPHIC IMAGE Routine 05/25/2024 10:00 AM EST Open fracture of tooth, initial encounter BITEWING - SINGLE RADIOGRAPHIC IMAGE Routine 05/25/2024 10:00 AM EST Open fracture of tooth, initial encounter LIMITED ORAL EVALUATION - PROBLEM FOCUSED Routine 05/25/2024 10:00 AM EST Open fracture of tooth, initial encounter 16 EXTRACTION Routine 05/25/2024 12:00 AM EST PANORAMIC RADIOGRAPHIC IMAGE Routine 01/01/2023 1:00 PM EDT from Last 3 Months or Most Recently Relevant to Health Maintenance Insurance DENTAL - [employer] DENT[employer] PPO
--- OUTSIDE RECORDS SUMMARY | 2024-08-23 17:04 | XMS_ITS | Data Portability ---
Author Organization [facility], [facility] Address [address] [facility] [place] [address] Care Team Providers Care Clinical Faculty Name Role Phone YON MEDEL Referring Provider DAVID BARNHART Primary Care Provider Assessment Encounter Date Assessment Date Assessment LastModified [...] pancreatic elastase, stool 2020 021 [email or web address] [email or web address] [facility], [address] [place], [address], 15:30:27 fecal fat, qualitative , stool [address] Lab, [address] [place], [address], 15:49:04 Referral None recorded. Procedures colonoscopy procedure (PROC) - Miralax [address] Endoscopy [facility], [address] [place] [address], [phone], 10:54:34 Surgeries None recorded. Imaging None recorded. Medication Orders None recorded. Patient TargetsNo targets recorded. Patient Instructions Encounter Date Encounter Id Patient Instructions Last Modified By Organization Details Last Modified Time 08/31/2020 [id number] diet - low fodmap [email or web address] Not availab le 08/31/2020 18:16:52 anemia: care instructions [email or web address] Not available 08/31/2020 18:16:52 10/16/2020 [id number] diarrhea: care instructions [email or web address] Not available 10/16/2020 [...] Recorded Time 09/14/19 Colonoscopy completed Juli Scott [facility] 10/11/2020 17:19:09 06/30/19 10 hysterectomy completed Dede De Leon [facility] 08/31/2020 16:57:34 Imaging [...] No t Available FreeStyle Enrike 14 Day Rosiclare USE TO CHECK BLOOD GLUCOSE THREE TIMES [...] t Available Vitals Date Recorded Body height Body mass index (BMI) Body weight Provider Name and Address Organization Details Last Updated DateTime 08/31/2020 160.02 cm 34.4 kg/m2 79417.92 g Dede De Leon [facility] 08/31/2020 16:50:09 Date Recorded Body height Body mass index (BMI) Body weight Provider Name and Address Organization Details Last Updated DateTime 10/16/2020 160.02 cm 31.9 kg/m2 42560.63 g Dede De Leon [facility] 10/16/2020 15:16:50 Social History Question Answer Notes LastModified by Organizat ion Details LastModified Time Tobacco Smoking Status Never Smoker Dede ye [facility] 08/31/2020 16:56:24 Do You Have An [...] (COVID-19) vaccine, UNSPECIFIED completed KEZIA M[facility]quez - [facility] 10/16/2020 15:20:04 Past Encounters Encounter ID Performer Location Encounter Start Date Encounter Closed Date Diagnosis/Indication Diagnosis SNOMED-CT Code Diagnosis ICD10 Code Diagnosis Note [id number] ORION SEAY MD [facility] [address] [place] [place] [address] 08/31/2020 15:51:54 09/01/2020 14:18:50 Anemia 498674049 D64.9 Patient was referred to us by [...] s and agrees to proceed. Abdominal bloating 29046 9008 R14.0 This has been a new and progressiv madison worsening issue for the patient.- Advised to start following a low FODMAP diet - Advised to avoid carbonated beverages, drinking through straws, excessive gum chewing, foods with high fructose load such as juices, or artificial sweeteners - Suggested continuing to avoid lactose [id number] ORION SEAY MD [facility] [address] [facility] [place], [place] [address] 10/16/2020 14:28:37 10/16/2020 16:29:00 Anemia [id number] D64.9 Patient was referred to us by [...] with PCP in this regard Abdominal bloating 28880 9008 R14.0 This has been an ongoing issue for the patient but appears to be improving with dietary changes. - Advised to start following a low FODMAP diet - Advised to continue to avoid carbonated beverages, drinking through straws, excessive gum chewing, foods with high fructose load such as juices, or artificial sweeteners - Suggested continuing to avoid lactose Diarrhea [id number] R19.7 Patient reports occasional diarrhea with ingestion [...] Member ID Guarantor Name 08/31/2020 1 [place] [facility] [id number] Vesta Cronin [id number] Vesta Cronin 10/16/2020 1 [facility] [id number] Vesta Cronin [id number] Vesta Cronin Notes Date Note Type [...] no other abdominal surgeries. ORION SEAY MD [address] [place], [address], [facility] 08/31/2020 18:17:13 10/16/2020 text/html [...] no other abdominal surgeries. ORION SEAY MD [address] [place], [address], [facility] 10/16/2020 16:12:58 OBGyn Episode No OBEpisode recorded.
--- OUTSIDE RECORDS SUMMARY | 2024-08-23 17:05 | XMS_ITS | Encounter Summary ---
Author Organization [employer] Address [address] [facility] [address] [place] [address] Care Team Providers Care Cushion Cover Inspector Name Role Phone Unavailable Primary Care Provider Unavailabl e Reason for Visit * Reason Onset Date Comments Appointment 01/27/2023 Encounter Details Date Type Department Care Team (Late st Contact Info) Description 01/27/2023 Telephone C ADULT DENTAL [address] [place], [place] [phone] Krunal Garcia DDS [address] [place], [place] [phone] Appointment Social History Tobacco Use Types Packs/Day [...] to schedule patient per dates offered by [facility] dental, she stated that she contacted E and they would be sending notes regarding her case. documented in this encounter Plan of Treatment Not on file documented as of this encounter Visit Diagnoses Not on filedocumented in this encounter
== END 2024-08-23 15:15 | disposition home or self-care (01) ==
PROVIDERS: PCP Internal Medicine; Visit Provider Internal Medicine Hypertension Specialist
DX: I10 Essential (primary) hypertension (principal); N18.30 Chronic kidney disease, stage 3 unspecified; D64.9 Anemia, unspecified; I50.30 Unspecified diastolic (congestive) heart failure
CPT/HCPCS: 99214

== ENCOUNTER → 2024-08-23 14:49 | Outpatient (BNVA) | payer BC, SELFPAY | PROVIDERS: PCP Internal Medicine; Visit Provider Internal Medicine Hypertension Specialist ==

== ENCOUNTER 2024-09-09 06:08 | Outpatient (REF) | payer BC, SELFPAY ==
[2024-09-09 06:21] LABS: MANUAL DIFF FLAG NO
[2024-09-09 06:53] LABS: Basophils Percent Auto 0.7 % (0-2); Eosinophils Absolute Auto 0.2 X10*3/uL (0.0-0.4); Eosinophils Percent Auto 3.6 % (0-4); Hematocrit 33.5 % (37.0-47.0); Hemoglobin 10.7 g/dl (12.0-16.0); Imm Gran Abs Auto 0.01 X10*3/uL (0.00-0.03); Imm Gran Pct Auto 0.2 % (0.0-0.4); Lymphocytes Absolute Auto 1.6 X10*3/uL (1.2-4.9); Lymphocytes Percent Auto 36.8 % (20-40); Mean Corpuscular HGB Conc 31.9 g/dl (31.0-35.0); Mean Corpuscular Volume 84.6 fL (80.0-98.0); Mean Platelet Volume 11.1 fL (9.4-12.3); Monocytes Absolute Auto 0.5 X10*3/uL (0.1-1.2); Monocytes Percent Auto 11.6 % (2-11); Neutrophils Absolute Auto 2.1 x10*3/uL (2.0-8.3); Neutrophils Percent Auto 47.1 % (45-73); Platelet Count 229 X10*3/uL (160-400); Red Blood Count 3.96 X10*6/uL (4.20-5.50); Red Cell Distribution Width 12.9 % (11.0-16.0); White Blood Count 4.4 X10*3/uL (4.8-10.8)
[2024-09-09 07:08] LABS: Appearance Urine Clear; Color Urine Yellow; Glucose Urine UA 250 mg/dL (Negative); Leukocyte Esterase Urine Negative (Negative); Nitrite Urine Negative (Negative); PH 5.5 (5.0-9.0); Specific Gravity - Urine 1.015 (1.005-1.025); UMIC TRIGGER UACC YES; Urine Blood Negative (Negative); Urine Ketones Trace mg/dL (Negative); Urine Protein 30 (1+) mg/dL (Neg-Trace)
[2024-09-09 07:14] LABS: Estimated Average Glucose 183 mg/dL
[2024-09-09 07:20] LABS: Alanine Aminotransferase 12 U/L (0-31); Albumin Level 4.4 g/dL (3.5-5.0); Alkaline Phosphatase 44 U/L (39-117); Anion Gap 14 (12-20); Aspartate Amino Transferase 17 U/L (5-31); Bilirubin Total 0.5 mg/dL (0.0-1.0); Blood Urea Nitrogen 39 mg/dL (9-16); Calcium 9.4 mg/dL (8.4-10.2); Carbon Dioxide 23 mmol/L (22-29); Chloride 106 mmol/L (96-108); Cholesterol 142 mg/dL (<200); Estimated Glomerular Filt Rate 34; Glucose Random 121 mg/dL (60-115); HDL Cholesterol 61 mg/dL (>40); LDL Cholesterol Calculated 69 mg/dL (<100); Potassium 4.7 mmol/L (3.3-5.1); Sodium 138 mmol/L (135-145); Total Protein 7.2 g/dL (6.5-8.0); Triglycerides 62 mg/dL (<150)
[2024-09-09 07:25] LABS: Bacteria Urine None Seen (None Seen); RBC Urine 0-2 /HPF (0-2); Squamous Epithelial Cell Urine 0-2 /HPF (0-2); WBC Urine 0-5 /HPF (0-5)
[2024-09-09 07:26] LABS: Creatinine Urine 147.77 mg/dL
[2024-09-09 07:30] LABS: Vitamin D 25-OH Total 33.3 ng/mL (>30)
[2024-09-09 07:35] LABS: Thyroid Stimulating Hormone 7.46 uIU/mL (0.32-4.0)
[2024-09-09 07:42] LABS: Folate 11.8 ng/mL (> or = 4.0); Vitamin B12 364 pg/mL (200-900)
== END 2024-09-09 06:09 | disposition home or self-care (01) ==
LOC: HO.LAB 06:08
PROVIDERS: Absent Provider Internal Medicine Hypertension Specialist; PCP Internal Medicine; Visit Provider Internal Medicine
DX: E11.65 Type 2 diabetes mellitus with hyperglycemia (principal); D64.9 Anemia, unspecified; E78.00 Pure hypercholesterolemia, unspecified
CPT/HCPCS: 36415; 80053; 80061; 81001; 82306; 82570; 82607; 82746; 83036; 84439; 84443; 85025

== ENCOUNTER 2024-09-13 10:12 | Outpatient (AMB) | payer BC, SELFPAY ==
--- NOTE | 2024-09-13 10:13 | HO.NEPHOV ---
Vital Signs 09/13/24 10:15 Height 5 ft 5 in Weight 176 lb BMI 29.3 BP 140/60 H Blood Pressure Location Lt brachial Position Sitting Pulse 65 Pulse Source Pulse Oximeter Pulse Oximetry (%) 98 Oxygen Delivery Method Room Air Intake Visit Reasons: FU/ Conf Janitorial Supervisor Required: No Accompanied by: Self / Same As Patient Allergies sacubitril [From Entresto] Allergy (Severe, Verified 09/13/24 10:15) Nausea and Vomiting fish derived [FISH] Allergy (Unknown, Verified 09/13/24 10:15) itchy,rash ferrous sulfate Allergy (Verified 09/13/24 10:15) Abdominal Pain valsartan Adverse Reaction (Intermediate, Verified 09/13/24 10:15) Cough terazosin Adverse Reaction (Verified 09/13/24 10:15) Diarrhea metformin Adverse Reaction (Unknown, Uncoded 07/08/24 15:21) mouth sore Medication List - Last Reconciled 09/13/24 by Marcos Romero MD aspirin 81 mg PO DAILY blood pressure monitor (Blood Pressure Kit) As directed blood sugar diagnostic (FreeStyle Lite Strips) As directed check the BS QD carvedilol (Coreg) 12.5 mg PO BID empagliflozin (Jardiance) 10 mg PO DAILY glipizide 10 mg PO BID hydralazine 25 mg PO TID ketoconazole 2% 1 appl topical DAILY nifedipine ER 60 mg PO DAILY rosuvastatin 20 mg PO DAILY spironolacton-hydrochlorothiaz 25-25 mg 1 tab PO DAILY tirzepatide (Mounjaro) 2.5 mg (0.5 mL) subcut QWEEK triamcinolone acetonide 0.1% 1 appl topical BID HPI Comments Details: Sr Lemons is a pleasant 59-year-old woman with a history of diabetes mellitus and hypertension for almost 20 years. She was peripheral as disease. She has had resistant hypertension requiring at least 5 different medications. She has been referred for management of hypertension and chronic kidney disease. Recent serum creatinine was 1.6 mg/dL EGFR of 30 mL/minute. She has a history of heart failure with preserved ejection fraction. She will be followed by Cardiology. She has not tolerated Entresto in the past. Valsartan gave her some cough. At present she is on spironolactone and hydralazine and carvedilol. She underwent angiogram in [place]. She has peripheral vascular disease. She did undergo Doppler ultrasonogram of renal arteries in 2022. There was no definite evidence of renal artery stenosis at the time. 09/13/24 Home BP is better SBP is not above 160 and lowest was 140 PFSH Medical History (Updated 08/23/24 @ 15:09 by Marcos Romero MD) Heart failure with reduced ejection fraction (HFpEF) heart failure with preserved ejection fraction Cough Subclinical hypothyroidism Tinea versicolor Hypothyroidism Vitamin D deficiency Hypercholesteremia Anemia PAD (peripheral artery disease) CHF (congestive heart failure) Pericardial effusion Acute dermatitis Murmur, cardiac Diabetes Hypertension Surgical History History of cataract surgery History of revascularization procedure of lower extremity S/P complete hysterectomy Family History Father Prostate cancer Mother Hypertension Sister Hypertension Brother No problems noted. 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 Cognitive needs: No Hearing needs: No Vision needs: Yes Physical Exam Vital Signs: BMI result Body Mass Index 29.3 Comfortable Neck supple no JVD. Lungs entry equal no rales. Heart S1-S2 heard no gallop or rub. Abdomen soft nontender. Neuro alert awake oriented. No asterixis. Extremities no edema. Results Reviewed Nephrology Results: Hgb 10.7 g/dl (12.0-16.0) L 09/09/24 WBC 4.4 X10*3/uL (4.8-10.8) L 09/09/24 Plt Count 229 X10*3/uL (160-400) 09/09/24 Sodium 138 mmol/L (135-145) 09/09/24 Potassium 4.7 mmol/L (3.3-5.1) 09/09/24 Chloride 106 mmol/L (96-108) 09/09/24 Carbon Dioxide 23 mmol/L (22-29) 09/09/24 BUN 39 mg/dL (9-16) H 09/09/24 Creatinine 1.54 mg/dL (0.5-1.4) H 09/09/24 Calcium 9.4 mg/dL (8.4-10.2) 09/09/24 PTH Intact 184.8 pg/mL (8.7-77.1) H 07/22/24 Urine Protein 30 (1+) mg/dL (Neg-Trace) H 09/09/24 Urine Creatinine 147.77 mg/dL 09/09/24 Assessment & Plan Assessment & Plan (1) Uncontrolled hypertension: Comment: Resistant hypertension in the setting of chronic kidney disease and possibility as disease. Doppler ultrasonogram did not reveal any renal artery stenosis in 2022. Code(s): I10 - Essential (primary) hypertension Category: Medical Plan: Today blood pressure seems better controlled. s/p 24 hour ambulatory blood pressure monitoring. Encouraged her to stand was low-sodium diet. Keep Aldactazide 25-25 QD Change Hydralazine from 25 mg TID to 50 mg TID (2) CKD (chronic kidney disease) stage 3, GFR 30-59 ml/min: Comment: Most likely due to underlying hypertensive diabetic kidney disease. No evidence of obstruction based on recent ultrasonogram. Glomerular nephritis/interstitial disease are unlikely based on the bland urine sediments A1C has been elevated Code(s): N18.30 - Chronic kidney disease, stage 3 unspecified Category: Medical Plan: Goal is to slow the progression of renal disease. Maintain blood pressure less than 130/80 Maintain A1c less than 7%. Recent A1C is 8% ( August 2024) Continue to avoid nephrotoxic agents including NSAIDs. SGLT2 inhibitors as indicated (3) Anemia: Comment: Multifactorial. 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 No absolute indication for Epogen at this time. (4) (HFpEF) heart failure with preserved ejection fraction: Code(s): I50.30 - Unspecified diastolic (congestive) heart failure Category: Medical Plan: Currently appears compensated Continue with current regimen and follow up with Cardiology. Discussed importance of low-sodium diet Plan History of hypothyroidism. It is unclear if she is taking any Synthroid at this time. Encouraged her to follow up with PCP. Cholesterol panel is acceptable Orders: Orders Basic Metabolic Panel 4 Weeks I10 - Essential (primary) hypertension, N18.30 - Chronic kidney disease, stage 3 unspecified Medications: Changed From hydralazine 25 mg PO TID 270 tabs 2RF To hydralazine 50 mg PO TID 180 tabs 2RF Coding Level of Care Code Est Pt Level 4 (74286) Diagnoses Uncontrolled hypertension I10 CKD (chronic kidney disease) stage 3, GFR 30-59 ml/min N18.30 Anemia D64.9 (HFpEF) heart failure with preserved ejection fraction I50.30
[2024-09-13 10:15] VITALS: BP 140/60; PULSE 65; O2SAT 98; BMI 29.3
--- OUTSIDE RECORDS SUMMARY | 2024-09-13 11:27 | XMS_ITS | Clinical Summary ---
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
--- OUTSIDE RECORDS SUMMARY | 2024-09-13 11:27 | XMS_ITS | Encounter Summary ---
Author Organization [employer] [facility] Address [address] [facility] [address] [place] [address] Care Team Providers Care Jacquard Loom Carpet Weaver Name Role Phone Unavailable Primary Care Provider Unavailabl e Reason for Visit * Reason Onset Date Comments Appointment 01/27/2023 Encounter Details Date Type Department Care Team (Late st Contact Info) Description 01/27/2023 Telephone C ADULT DENTAL [address] [place], [place] [phone] Krunal Garcia DDS [address] [place], [place] [phone] Appointment Social History Tobacco Use Types Packs/Day [...] to schedule patient per dates offered by [facility] dental, she stated that she contacted E and they would be sending notes regarding her case. documented in this encounter Plan of Treatment Not on file documented as of this encounter Visit Diagnoses Not on filedocumented in this encounter
== END 2024-09-13 10:27 | disposition home or self-care (01) ==
LOC: HO.HKA 10:13
PROVIDERS: PCP Internal Medicine; Visit Provider Internal Medicine Hypertension Specialist
DX: I10 Essential (primary) hypertension (principal); N18.30 Chronic kidney disease, stage 3 unspecified; D64.9 Anemia, unspecified; I50.30 Unspecified diastolic (congestive) heart failure
CPT/HCPCS: 99214

== ENCOUNTER 2024-09-21 14:47 | Outpatient (AMB) | payer BC, SELFPAY ==
[2024-09-21 15:11] VITALS: BP 136/80; PULSE 68; BMI 29.7
--- NOTE | 2024-09-21 15:11 | MHC.OFFVIS ---
Vital Signs 09/21/24 15:11 Height 5 ft 5 in Weight 178 lb 9.191 oz BMI 29.7 BP 136/80 Blood Pressure Location Lt brachial Position Sitting Pulse 68 Intake Visit Reasons: 6 mth f/up Intake Note: 6 month follow-up bp was just changed Metrology Technician Required: No Allergies sacubitril [From Entresto] Allergy (Severe, Verified 09/13/24 10:15) Nausea and Vomiting fish derived [FISH] Allergy (Unknown, Verified 09/13/24 10:15) itchy,rash ferrous sulfate Allergy (Verified 09/13/24 10:15) Abdominal Pain valsartan Adverse Reaction (Intermediate, Verified 09/13/24 10:15) Cough terazosin Adverse Reaction (Verified 09/13/24 10:15) Diarrhea metformin Adverse Reaction (Unknown, Uncoded 07/08/24 15:21) mouth sore Medication List - Last Reconciled 09/21/24 by Rolando Alegria MD aspirin 81 mg PO DAILY blood pressure monitor (Blood Pressure Kit) As directed blood sugar diagnostic (FreeStyle Lite Strips) As directed check the BS QD carvedilol (Coreg) 12.5 mg PO BID empagliflozin (Jardiance) 10 mg PO DAILY glipizide 10 mg PO BID hydralazine 50 mg PO TID ketoconazole 2% 1 appl topical DAILY nifedipine ER 60 mg PO DAILY rosuvastatin 20 mg PO DAILY spironolacton-hydrochlorothiaz 25-25 mg 1 tab PO DAILY tirzepatide (Mounjaro) 2.5 mg (0.5 mL) subcut QWEEK triamcinolone acetonide 0.1% 1 appl topical BID HPI Comments Details: 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 In July she had a 24 hour ambulatory blood pressure monitor which shows significantly elevated blood pressure all the time. Medication has been readjusted hydralazine has been increased to 50 mg t.i.d.. She has been taking her medications. Blood pressures still remain elevated but much better controlled with systolic blood pressure 151/60 range. She says she does not use much salt in his diet. She takes all her medications regularly. She has not had any significant lightheadedness or syncope. She has not had any orthopnea, PND, leg edema. Denies any exertional chest pain. No prolonged palpitation irregular heartbeat. She is worried about heart rate in the upper 50s with carvedilol therapy. [facility] Medical History Heart failure with reduced ejection fraction (HFpEF) heart failure with preserved ejection fraction Cough Subclinical hypothyroidism Tinea versicolor Hypothyroidism Vitamin D deficiency Hypercholesteremia Anemia PAD (peripheral artery disease) CHF (congestive heart failure) Pericardial effusion Acute dermatitis Murmur, cardiac Diabetes Hypertension Surgical History History of cataract surgery History of revascularization procedure of lower extremity S/P complete hysterectomy Family History Father Prostate cancer Mother Hypertension Sister Hypertension Brother No problems noted. 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 Cognitive needs: No Hearing needs: No Vision needs: Yes Review of Systems Const Denies chills, Denies fatigue, Denies fever(s), Denies frequent falls, Denies weakness, Denies weight gain and Denies weight loss ENT Denies dizziness Card Denies chest pain, Denies leg edema, Denies lightheadedness, Denies palpitations, Denies dyspnea, Denies dyspnea on exertion, Denies orthopnea and Denies other (loss of consciousness) Resp Denies cough, Denies dyspnea and Denies dyspnea on exertion GI Denies hematochezia and Denies change in stool character Musc Denies abnormal gait, Denies muscle weakness, Denies numbness, Denies radiating pain into limb and Denies tingling Neuro Denies Abnormal speech present, Denies abnormal gait, Denies dizziness, Denies frequent falls, Denies numbness, Denies tingling and Denies weakness Endo Denies fatigue and Denies palpitations Physical Exam Vital Signs: Last Vital Signs Pulse 68 09/21/24 15:11 BP 136/80 09/21/24 15:11 BMI result Body Mass Index 29.7 Const General: cooperative, comfortable, no acute distress, alert, awake and well groomed Nutritional Appearance: overweight Orientation/consciousness: patient oriented x3 Limitations: no limitations HEENT Head: Yes normocephalic and Yes atraumatic Neck Neck: Yes trachea midline, Yes supple and Yes no JVD Resp Effort & Inspection: normal respiratory effort Auscultation: clear to auscultation bilaterally Cardio Jugular venous distension: no JVD Rate: regular rate Rhythm: regular rhythm Heart sounds: S1 normal heart sound present, S2 normal heart sound present, no click, no gallops, no murmurs and no rubs GI Auscultation: normal bowel sounds Skin General skin exam: no rashes or lesions noted Neuro General: patient oriented x3 and no focal motor deficits Speech: No Abnormal speech present Extrem General: No clubbing, No cyanosis and Yes edema Psych Appearance: grossly normal Assessment & Plan Assessment & Plan (1) (HFpEF) heart failure with preserved ejection fraction: Code(s): I50.30 - Unspecified diastolic (congestive) heart failure Category: Medical Plan: Heart failure preserved ejection fraction, clinically euvolemic and well compensated with normalized LV ejection fraction with current medical therapy. Blood pressure is still remains elevated. Will need further titration of her medications. I will let Nephrology team manage her blood pressure at this point time. Continue current medication. Importance of medical therapy was discussed. She is currently not on any loop diuretics. Signs and symptoms of heart failure were discussed. Daily weight monitoring avoidance salt loading was discussed. Continue Jardiance for neurohormonal modulation. Continue to uptitrate hydralazine which is currently not maximized. Will follow up in the clinic in 6 months time after echocardiogram. Thank you for allowing me to partake in her care Orders: Orders CA echo transthoracic complete Today I50.30 - Unspecified diastolic (congestive) heart failure Coding Level of Care Code Est Pt Level 4 (29970) Complex EM visit Add On G2211 Diagnoses (HFpEF) heart failure with preserved ejection fraction I50.30
--- OUTSIDE RECORDS SUMMARY | 2024-09-21 18:33 | XMS_ITS | Clinical Summary ---
Author Organization [email or web address] Address [address] [facility] [place] [address] Care Team Providers Care Willow Analyst Name Role Phone Unavailable Primary Care Provider [...] Relevant to Health Maintenance Insurance DENTAL - FORMERLY [facility] PPO
--- OUTSIDE RECORDS SUMMARY | 2024-09-21 18:33 | XMS_ITS | Data Portability ---
Author Organization [facility], ER [facility] Address [address] [facility] [place] [address] Care Team Providers Care Dental Technician Instructor Name Role Phone YON MEDEL Referring Provider DAVID BARNHATR Primary Care Provider [phone] Assessment Encounter Date Assessment Date Assessment LastModified [...] pancreatic elastase, stool 2020 021 [place] [facility], [address] [place], [address], 15:30:27 fecal fat, qualitative , stool [address] Lab, [address] [place], [address], 15:49:04 Referral None recorded. Procedures colonoscopy procedure (PROC) - Miralax [address] Endoscopy [facility], [address] [place] [address], [id number], 10:54:34 Surgeries None recorded. Imaging None recorded. Medication Orders None recorded. Patient TargetsNo targets recorded. Patient Instructions Encounter Date Encounter Id Patient Instructions Last Modified By Organization Details Last Modified Time 08/31/2020 [id number] diet - low fodmap [email or web address] Not availab le 08/31/2020 18:16:52 anemia: care instructions afotouhie Not available 08/31/2020 18:16:52 10/16/2020 [id number] diarrhea: care instructions afotouhie Not available 10/16/2020 [...] Recorded Time 09/14/19 Colonoscopy completed Juli Scott [facility] [place] 10/11/2020 17:19:09 06/30/19 10 hysterectomy completed Dede De Leon [facility] 08/31/2020 16:57:34 Imaging Results Imaging [...] No t Available FreeStyle Enrike 14 Day Meridian USE TO CHECK BLOOD GLUCOSE THREE TIMES [...] Updated DateTime 08/31/2020 160.02 cm 34.4 kg/m2 59810.92 g Dede De Leon [facility] [place] 08/31/2020 16:50:09 Date Recorded Body height Body mass index (BMI) Body weight Provider Name and Address Organization Details Last Updated DateTime 10/16/2020 160.02 cm 31.9 kg/m2 56510.63 g Dede De Leon [facility] [place] 10/16/2020 15:16:50 Social History Question Answer Notes LastModified by Organizat ion Details LastModified Time Tobacco Smoking Status Never Smoker Dede ye [facility] [place] 08/31/2020 16:56:24 Do You Have An Advance [...] (COVID-19) vaccine, UNSPECIFIED completed KEZIA Márquez - [facility] 10/16/2020 15:20:04 Past Encounters Encounter ID Performer Location Encounter Start Date Encounter Closed Date Diagnosis/Indication Diagnosis SNOMED-CT Code Diagnosis ICD10 Code Diagnosis Note [id number] ORION SEAY MD [facility] [address] [facility] [place] [address] 08/31/2020 15:51:54 09/01/2020 14:18:50 Anemia [id number] D64.9 Patient was referred to us by [...] s and agrees to proceed. Abdominal bloating 27676 9008 R14.0 This has been a new and progressiv madison worsening issue for the patient.- Advised to start following a low FODMAP diet - Advised to avoid carbonated beverages, drinking through straws, excessive gum chewing, foods with high fructose load such as juices, or artificial sweeteners - Suggested continuing to avoid lactose [id number] ORION SEAY MD [facility] [address] [facility] [place], [place] [address] 10/16/2020 14:28:37 10/16/2020 16:29:00 Anemia [id number] D64.9 Patient was referred to us by [...] with PCP in this regard Abdominal bloating 91047 9008 R14.0 This has been an ongoing issue for the patient but appears to be improving with dietary changes. - Advised to start following a low FODMAP diet - Advised to continue to avoid carbonated beverages, drinking through straws, excessive gum chewing, foods with high fructose load such as juices, or artificial sweeteners - Suggested continuing to avoid lactose Diarrhea [id number] R19.7 Patient reports occasional diarrhea with ingestion [...] Member ID Guarantor Name 08/31/2020 1 [place] [facility] [id number] Vesta Cronin [id number] Vesta Cronin 10/16/2020 1 [facility]: [facility] ([facility] [id number] Vesta Cronin [id number] Vesta Cronin Notes Date Note Type [...] no other abdominal surgeries. ORION SEAY MD [address] [place], [address], [facility] 08/31/2020 18:17:13 10/16/2020 text/html Ms. [...] no other abdominal surgeries. ORION SEAY MD [address] [place], [address], [facility] 10/16/2020 16:12:58 OBGyn Episode No OBEpisode recorded.
--- OUTSIDE RECORDS SUMMARY | 2024-09-21 18:33 | XMS_ITS | Encounter Summary ---
Author Organization [employer] Address [address] [facility] [address] [place] [address] Care Team Providers Care Saute Chef Name Role Phone Unavailable Primary Care Provider Unavailabl e Reason for Visit * Reason Onset Date Comments Appointment 01/27/2023 Encounter Details Date Type Department Care Team (Late st Contact Info) Description 01/27/2023 Telephone C ADULT DENTAL [address] [place], [place] [phone] Krunal Garcia DDS [address], [place] [phone] Appointment Social History Tobacco Use Types Packs/Day [...] to schedule patient per dates offered by [facility], she stated that she contacted E and they would be sending notes regarding her case. documented in this encounter Plan of Treatment Not on file documented as of this encounter Visit Diagnoses Not on filedocumented in this encounter
== END 2024-09-21 15:42 | disposition home or self-care (01) ==
LOC: HO.HCS 14:48
PROVIDERS: PCP Internal Medicine; Visit Provider Internal Medicine Cardiovascular Disease
DX: I50.30 Unspecified diastolic (congestive) heart failure (principal)
CPT/HCPCS: 99214

== ENCOUNTER 2024-10-07 15:48 | Outpatient (AMB) | payer BC, SELFPAY ==
--- NOTE | 2024-10-07 16:17 | MHC.PC.OV ---
Vital Signs 10/07/24 16:18 Height 5 ft 5 in Weight 181 lb 6 oz BMI 30.2 BP 140/64 H Blood Pressure Location Lt brachial Position Sitting Pulse 70 Pulse Source Pulse Oximeter Temp 97.1 F Temp Source Temporal Artery Scan Pulse Oximetry (%) 99 Oxygen Delivery Method Room Air Intake Visit Reasons: DM Intake Note: Patient is here to follow up on DM. Dam Attendant Required: No Adult Care Provider: Not Required per policy Accompanied by: Self / Same As Patient Allergies sacubitril [From Entresto] Allergy (Severe, Verified 10/07/24 16:18) Nausea and Vomiting fish derived [FISH] Allergy (Unknown, Verified 10/07/24 16:18) itchy,rash ferrous sulfate Allergy (Verified 10/07/24 16:18) Abdominal Pain valsartan Adverse Reaction (Intermediate, Verified 10/07/24 16:18) Cough terazosin Adverse Reaction (Verified 10/07/24 16:18) Diarrhea metformin Adverse Reaction (Unknown, Uncoded 07/08/24 15:21) mouth sore Medication List - Last Reconciled 10/07/24 by nAibal Garcia MD aspirin 81 mg PO DAILY blood pressure monitor (Blood Pressure Kit) As directed blood sugar diagnostic (FreeStyle Lite Strips) As directed check the BS QD carvedilol (Coreg) 12.5 mg PO BID empagliflozin (Jardiance) 10 mg PO DAILY hydralazine 50 mg PO TID 90 days ketoconazole 2% 1 appl topical DAILY nifedipine ER 60 mg PO DAILY rosuvastatin 20 mg PO DAILY spironolacton-hydrochlorothiaz 25-25 mg 1 tab PO DAILY tirzepatide (Mounjaro) 2.5 mg (0.5 mL) subcut QWEEK triamcinolone acetonide 0.1% 1 appl topical BID Tobacco use date assessed: 10/07/24 Dental Screening Dental Screen Date: 07/08/24 [facility] Medical History Heart failure with reduced ejection fraction (HFpEF) heart failure with preserved ejection fraction Cough Subclinical hypothyroidism Tinea versicolor Hypothyroidism Vitamin D deficiency Hypercholesteremia Anemia PAD (peripheral artery disease) CHF (congestive heart failure) Pericardial effusion Acute dermatitis Murmur, cardiac Diabetes Hypertension Surgical History History of cataract surgery History of revascularization procedure of lower extremity S/P complete hysterectomy Family History Father Prostate cancer Mother Hypertension Sister Hypertension Brother No problems noted. 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 Cognitive needs: No Hearing needs: No Vision needs: Yes Questionnaire Thrive Questionnaire Date Thrive assessed: 07/08/24 FABIO-7 AMB Questionnaire FAIBO-7 Date FABIO - 7 assessed: 07/08/24 Source: Developed by Drs. iVnh Garcia, Alicia Allred, Jordan Olvera and colleagues, with an educational mela from [employer]. Physical exam (Primary Care) Vital Signs: Last Vital Signs Temp 97.1 F 10/07/24 16:18 Pulse 70 10/07/24 16:18 BP 140/64 H 10/07/24 16:18 Pulse Ox 99 10/07/24 16:18 Oxygen Delivery Method Room Air 10/07/24 16:18 BMI result Body Mass Index 30.2 Tobacco/Smoking Status: Tobacco use Status Tobacco use date assessed 10/07/24 10/07/24 16:24 Patient Tobacco Use Status Never used Tobacco 10/07/24 16:24 Tobacco use type Cigarette 10/07/24 16:24 e-Cigarette/Vaping Use Never Used 10/07/24 16:24 Thrive Assessment: Date of Thrive Assessment Date Thrive assessed 07/08/24 10/07/24 16:24 Const General: alert; No acute distress Eyes Conjunctivae: conjunctivae normal Resp Auscultation: clear to auscultation bilaterally Cardio Rate: regular rate Rhythm: regular rhythm GI Inspection: Yes normal to inspection Extrem General: Yes normal to inspection and No edema Coding Level of Care Code Est Pt Level 4 (89198) Complex EM visit Add On G2211 Diagnoses CKD (chronic kidney disease) stage 3, GFR 30-59 ml/min N18.30 (HFpEF) heart failure with preserved ejection fraction I50.30 Uncontrolled hypertension I10 Type 2 diabetes mellitus with hyperglycemia E11.65 Hypothyroidism E03.9 Hypercholesteremia E78.00 Assessment & Plan Assessment & Plan (1) CKD (chronic kidney disease) stage 3, GFR 30-59 ml/min: Comment: Most likely due to underlying hypertensive diabetic kidney disease. No evidence of obstruction based on recent ultrasonogram. Glomerular nephritis/interstitial disease are unlikely based on the bland urine sediments A1C has been elevated Code(s): N18.30 - Chronic kidney disease, stage 3 unspecified Category: Medical Plan: Keep well hydrated, avoid NSAIDs continue to be followed up by Nephrology. Control blood pressure control control cholesterol controlled diabetes (2) (HFpEF) heart failure with preserved ejection fraction: Code(s): I50.30 - Unspecified diastolic (congestive) heart failure Category: Medical Plan: Patient has been placed on Aldactazide 25/25 with Jardiance 10 mg once a day and carvedilol 12.5 mg twice a day (3) Uncontrolled hypertension: Comment: Resistant hypertension in the setting of chronic kidney disease and possibility as disease. Doppler ultrasonogram did not reveal any renal artery stenosis in 2022. Code(s): I10 - Essential (primary) hypertension Category: Medical Plan: Continue with carvedilol, Jardiance, hydralazine 50 mg t.i.d. nifedipine 60 mg once a day and Aldactazide as per Nephrology (4) Type 2 diabetes mellitus with hyperglycemia: Code(s): E11.65 - Type 2 diabetes mellitus with hyperglycemia Category: Medical Plan: Decrease the amount of carbohydrate intake, pasta, bread, rice and potatoes are all sugar and that is aside from all the sweet stuff, remember that fruits are good but they are Sweet also. Placed on Mounjaro 2.5 mg once a week with glipizide 10 mg twice a day and Jardiance (5) Hypothyroidism: Code(s): E03.9 - Hypothyroidism, unspecified Category: Medical Plan: TSH mild elevated and and no more than 10 and so will continue to monitor for now (6) Hypercholesteremia: Code(s): E78.00 - Pure hypercholesterolemia, unspecified Category: Medical Plan: LDL goal < 100 omn atorvastatin Plan History of Present Illness The patient is a 59-year-old female presenting with management issues of Type 2 Diabetes Mellitus and Essential Hypertension. She has a complex medical history including obesity, hypercholesterolemia, hypothyroidism, cardiomyopathy, peripheral arterial disease, and stage 3 chronic kidney disease. She reports improvements in glycemic control with hemoglobin A1c decreasing over time; however, it remains above target. Episodes of hypoglycemia have occurred with current medications, requiring dosage adjustments. Blood pressure monitoring has revealed elevated levels despite current antihypertensive therapy, leading to medication adjustments. Health Maintenance - Recent mammogram conducted in March 2024 - Recommendation to remain well-hydrated and avoid NSAIDs - Discouragement of nephrotoxic agents use - Encouragement of healthy diet and weight management as part of diabetes care Social History - Reports consuming fruits in moderation to manage vitamin intake but acknowledges difficulty managing sugar intake - Denies consumption of candies, sodas, and excessive ice cream - Concerns over weight impact; discussions of weight and dietary impact on blood pressure and diabetes - Self-monitoring of blood glucose levels; adjustments reported in response to hypoglycemia - Regular follow-ups for pharmacy and insurance company discussions regarding medication costs and supplies Review of Systems - Cardiovascular: Reports lower extremity edema; denies severe swelling - Endocrine: Reports hair loss (related to hypothyroidism management) - General: Reports episodes of low blood sugar - Pulmonary: Reports feeling breathlessness - Gastrointestinal: Denies any issues related to medications Physical Exam Results - Labs: Hemoglobin 10.7; WBC 4.4; Creatinine 1.54; BUN 39; GFR 34; Sodium normal; Potassium normal; Blood Sugar 121; Hemoglobin A1c 8.0; LDL 69; TSH 7.46 Plan The plan today involves discontinuing Glipizide due to the risk of hypoglycemia and maintaining her on Mounjaro and Jardiance to improve diabetes control. For hypertension, continue current antihypertensives, adjusting nifedipine only if edema worsens. We will continue to monitor for anemia related to chronic kidney disease. Pharmacy logistics are addressed by ensuring 90-day medication supplies through [employer], easing patient access. Ongoing support with educational reinforcement on lifestyle changes in diet and weight management forms a part of her hypertension and diabetes care strategy. Patient was informed and verbally consented to the use of an ambient scribe for clinic note documentation during this visit. Discussion Notes I have discussed with the patient the adjustments in her diabetic medication regimen, specifically the need to discontinue Glipizide for minimizing hypoglycemic events, and the continuation of Mounjaro and Jardiance for their dual benefit in diabetes and heart failure management. We discussed the importance of sustained blood pressure control with the continuation of her current antihypertensive regimen and the potential need for adjustment if her leg swelling, a side effect of nifedipine, worsens. The patient's thyroid and anemia status require ongoing monitoring without current alteration in management. Additionally, strategies to address medication costs, including the provision of 90-day supplies and communication with her pharmacy, were discussed to alleviate logistics and adherence issues. I have reinforced the importance of lifestyle modifications, particularly focusing on weight management and its impact on her health conditions. Patient Instructions - Discontinue Glipizide to avoid low blood sugar episodes. - Continue taking Mounjaro and Jardiance for diabetes management. - Maintain current antihypertensive medications; monitor leg swelling. - Take prescribed medications from [employer]; ensure a 90-day supply. - Maintain a balanced diet, focusing on reducing sugar intake and controlling diabetes. - Monitor blood pressure and report significant changes. - Continue aspirin therapy as discussed. - Schedule a follow-up for ongoing monitoring of thyroid, anemia, and kidney function. - Contact healthcare provider if there are significant symptoms such as severe edema or breathlessness. Medications: New aspirin 81 mg PO DAILY 90 tabs 3RF Changed From hydralazine 50 mg PO TID 180 tabs 2RF To hydralazine 50 mg PO TID 270 tabs 2RF 90 days Refilled spironolacton-hydrochlorothiaz 25-25 mg 1 tab PO DAILY 90 tabs 3RF carvedilol (Coreg) must administer with a meal/food 12.5 mg PO BID 180 tabs 1RF Discontinued glipizide Discontinued Reason: Doctor's Order 10 mg PO BID 90 tabs 1RF E11.65 - Type 2 diabetes mellitus with hyperglycemia
[2024-10-07 16:18] VITALS: BP 140/64; PULSE 70; TEMP 36.2; O2SAT 99; BMI 30.2
--- OUTSIDE RECORDS SUMMARY | 2024-10-07 17:53 | XMS_ITS | Data Portability ---
Author Organization [facility], [facility] Address [address] [facility]. [facility] [place] [address] Care Team Providers Care Truck Bracer Name Role Phone YON MEDEL Referring Provider DAVID BARNHART Primary Care Provider [phone] Assessment Encounter Date Assessment Date Assessment LastModified [...] pancreatic elastase, stool 2020 021 aboettche r6 [facility] Lab, [address] [place], [address], 15:30:27 fecal fat, qualitative , stool [address] Lab, [address] [place], [address], 15:49:04 Referral None recorded. Procedures colonoscopy procedure (PROC) - Miralax [address] Endoscopy [facility], [address] [place] [address], [phone], 10:54:34 Surgeries None recorded. Imaging None recorded. Medication Orders None recorded. Patient TargetsNo targets recorded. Patient Instructions Encounter Date Encounter Id Patient Instructions Last Modified By Organization Details Last Modified Time 08/31/2020 [id number] diet - low fodmap afotouhie Not availab le 08/31/2020 18:16:52 anemia: care instructions afotouhie Not available 08/31/2020 18:16:52 10/16/2020 [id number] diarrhea: care instructions afotouhie Not available 10/16/2020 [...] Recorded Time 09/14/19 Colonoscopy completed Juli Scott [facility] 10/11/2020 17:19:09 06/30/19 10 hysterectomy completed Dede De Leon [facility] 08/31/2020 16:57:34 Imaging [...] No t Available FreeStyle Enrike 14 Day [place] USE TO CHECK BLOOD GLUCOSE THREE TIMES [...] Updated DateTime 08/31/2020 160.02 cm 34.4 kg/m2 74744.92 g Dede De Leon [facility] 08/31/2020 16:50:09 Date Recorded Body height Body mass index (BMI) Body weight Provider Name and Address Organization Details Last Updated DateTime 10/16/2020 160.02 cm 31.9 kg/m2 70183.63 g Dede De Leon [facility] 10/16/2020 15:16:50 Social History Question Answer Notes LastModified by Organizat ion Details LastModified Time Tobacco Smoking Status Never Smoker Dede ye [facility] 08/31/2020 16:56:24 Do You Have An [...] (COVID-19) vaccine, UNSPECIFIED completed KEZIA Márquez - [facility] 10/16/2020 15:20:04 Past Encounters Encounter ID Performer Location Encounter Start Date Encounter Closed Date Diagnosis/Indication Diagnosis SNOMED-CT Code Diagnosis ICD10 Code Diagnosis Note [id number] ORION SEAY MD [facility] [address] [facility] [place] [address] 08/31/2020 15:51:54 09/01/2020 14:18:50 Anemia 290523739 D64.9 Patient was referred to us by [...] s and agrees to proceed. Abdominal bloating 19210 9008 R14.0 This has been a new and progressiv mad[place] worsening issue for the patient.- Advised to start following a low FODMAP diet - Advised to avoid carbonated beverages, drinking through straws, excessive gum chewing, foods with high fructose load such as juices, or artificial sweeteners - Suggested continuing to avoid lactose [id number] ORION SEAY MD [facility] [address] [facility] [place], [place] [address] 10/16/2020 14:28:37 10/16/2020 16:29:00 Anemia [id number] D64.9 Patient was referred to us by [...] with PCP in this regard Abdominal bloating 37667 9008 R14.0 This has been an ongoing issue for the patient but appears to be improving with dietary changes. - Advised to start following a low FODMAP diet - Advised to continue to avoid carbonated beverages, drinking through straws, excessive gum chewing, foods with high fructose load such as juices, or artificial sweeteners - Suggested continuing to avoid lactose Diarrhea [id number] R19.7 Patient reports occasional diarrhea with ingestion [...] Member ID Guarantor Name 08/31/2020 1 [place] [facility] [id number] Vesta Cronin [id number] Vesta Cronin 10/16/[address] [facility]: [facility] [id number] Vesta Cronin [id number] Vesta Cronin Notes Date Note Type [...] no other abdominal surgeries. ORION SEAY MD [address] [place], [address], [facility] 08/31/2020 18:17:13 10/16/2020 text/html [...] no other abdominal surgeries. ORION SEAY MD [address] [place], [address], [facility] 10/16/2020 16:12:58 OBGyn Episode No OBEpisode recorded.
--- OUTSIDE RECORDS SUMMARY | 2024-10-07 17:53 | XMS_ITS | Encounter Summary ---
Author Organization [employer] [facility] Address [address] [facility] 7t [place] [address] Care Team Providers Care Merchandise Carrier Name Role Phone Unavailable Primary Care Provider Unavailabl e Reason for Visit * Reason Onset Date Comments Appointment 01/27/2023 Encounter Details Date Type Department Care Team (Late st Contact Info) Description 01/27/2023 Telephone C ADULT DENTAL [address] [place], [place] [phone] Krunal Garcia DDS [address] [place], [place] [phone] Appointment Social History Tobacco Use Types Packs/Day [...] to schedule patient per dates offered by [facility], she stated that she contacted E and they would be sending notes regarding her case. documented in this encounter Plan of Treatment Not on file documented as of this encounter Visit Diagnoses Not on filedocumented in this encounter
--- OUTSIDE RECORDS SUMMARY | 2024-10-07 17:53 | XMS_ITS | Clinical Summary ---
Author Organization [employer] Address [address] 7[address] [place] [address] Care Team Providers Care Mannequin Maker Name Role Phone Unavailable Primary Care Provider [...] Relevant to Health Maintenance Insurance DENTAL - [facility] DENTAL PPO
== END 2024-10-07 17:20 | disposition home or self-care (01) ==
LOC: HO.HMCH 15:48
PROVIDERS: PCP Internal Medicine; Visit Provider Internal Medicine
DX: N18.30 Chronic kidney disease, stage 3 unspecified (principal); I50.30 Unspecified diastolic (congestive) heart failure; I10 Essential (primary) hypertension; E11.65 Type 2 diabetes mellitus with hyperglycemia; E03.9 Hypothyroidism, unspecified; E78.00 Pure hypercholesterolemia, unspecified

== ENCOUNTER → 2024-10-07 15:48 | Outpatient (BNVA) | payer BC, SELFPAY | PROVIDERS: PCP Internal Medicine; Visit Provider Internal Medicine | DX: Z13.89 Encounter for screening for other disorder (principal) ==

== ENCOUNTER → 2024-10-14 15:02 | Outpatient (REF) | payer BC, SELFPAY ==
--- NOTE | 2024-10-14 15:04 | CA_ITS ---
Transthoracic Echocardiogram Patient (Last, First, Middle): Vesta Cronin A Gender: Female Date of : 1965 Age: 59 Procedure Date: 10/14/2024 Procedure Type: Transthoracic Echocardiogram Location: OP Height: 165.1 cm Weight: 82.1 kg BSA: 1.90 m2 Heart Rate: bpm BP: 140 / 64 mmHg Brace Maker: CHRISTINA Referring MD: Rolando Alegria MD Nitrogen Operator: Rolando Alegria MD Symptoms: I50.30 - Unspecified diastolic (congestive) heart failure Study Quality: Adequate ECG Rhythm: Sinus Conclusions: - 1. Normal LV ejection fraction with moderate left ventricular hypertrophy with grade 3 diastolic dysfunction 2. Mildly dilated left atrium 3. Cardiac valvular Dopplers within normal limits 4. Mildly to moderately elevated right ventricular systolic pressure with mildly elevated right atrial pressures 5. Small pericardial effusion noted Findings Left Ventricle Normal left ventricular size and systolic function. There is moderately increased left ventricular wall thickness. The visually estimated ejection fraction is between 60-65%. Spectral Doppler is indicative of a restrictive filling pattern. E/E prime ratio is >15, consistent with elevated filling pressures. Evidence suggests grade III (severe) diastolic dysfunction. Peak GLS is -15.7%, which is mildly reduced Right Ventricle Normal right ventricular cavity size and systolic function. Atria The left atrium is mildly dilated. There is no evidence of interatrial shunt. The right atrium is likely dilated. Aortic Valve Normal aortic valve structure and function. There is no aortic valve stenosis. There is no aortic valve regurgitation. Mitral Valve Normal mitral valve structure and function. There is trace mitral valve regurgitation. There is no mitral valve stenosis. Pulmonic Valve The pulmonic valve is likely normal. There is trace pulmonic valve regurgitation. Tricuspid Valve Normal tricuspid valve structure. There is mild tricuspid valve regurgitation. Mildly elevated right atrial pressure. Mild to moderate pulmonary hypertension is present. Great Vessels All visible segments of the aorta are normal in size. The pulmonary artery was not well visualized. There is no dilatation of the ascending aorta measuring 3.20 cm. Venous The inferior vena cava is mildly dilated and collapses less than 50% with inspiration. Pericardium/Pleural There is a small circumferential pericardial effusion. Prior Study Comparison Changes noted compared to prior study dated: 07/30/2023. RV systolic pressure is increased Measurements 2D Linear Measurements IVSd: 1.40 0.6-0.9/0.6-1.0 cm LVIDd: 4.09 3.9-5.3/4.2-5.9 cm LVIDd Index: 2.15 2.4-3.2/2.2-3.1 cm/m2 LVIDs: 2.98 2.0-3.6 cm LVPWd: 1.41 0.7-1.1 cm LA Diam: 4.30 2.7-3.8/3.0-4.0 cm LAIDs Index: 2.26 1.5-2.3 cm/m2 LV Mass: 270.49 67-162/88-224 g LV Mass Index: 142.37 43-95/49-115 g/m2 LVOT Diam: 1.90 3.0+(-)1.3 cm 2D Systolic Function EF 4C: 67.10 >55% EF 2C: 64.80 >55% EF BiP: 65.40 >55% Mitral Valve MV Pk E: 1.16 MV PK A: 0.61 MV Decel Time: 228.00 E/A: 1.90 E'Lateral: 5.66 E'Medial: 5.44 E/E' Med: 21.30 E/E' Lat: 20.50 PHT: 67.00 MVA PHT: 3.28 Decel Ray: 5.10 Aortic Valve AoV Pk Luiz: 1.49 AoV Mn Luiz: 1.02 AoV VTI: 0.37 AoV Pk Grad: 9.00 Aov Mn Grad: 5.00 GARRICK Cont.VTI: 1.85 LVOT LVOT Pk Luiz: 1.01 LVOT Mn Luiz: 0.62 LVOT VTI: 0.24 LVOT Pk Grad: 4.00 LVOT Mn Grad: 2.00 LVOT Diam: 1.90 LVOT Area: 2.84 Diastolic Function MV Pk E: 1.16 MV Pk A: 0.61 E/A: 1.90 E'Medial: 5.44 E/E' Med: 21.30 E' Laterial: 5.66 E/E' Lat: 20.50 Right Ventricle TAPSE (mm): 22.10 TVS' Luiz: 10.80 Tricuspid Valve TR Pk Luiz: 3.15 TR Pk Grad: 40.00 RA Press: 8.00 RVSP: 48.00 Great Vessels Aorta Sinus of Valsalva: 2.92 2.0-3.[address] [place]: 2.59 1.7-3.4 cm Ao Asc: 3.20 2.1-3.4 cm Updated in Other Vendor System with Status of Final Rolando Alegria MD electronically signed on 10/15/2024 1:26:59 PM with status of Final
== END ==
LOC: HO.CARD 15:02
PROVIDERS: PCP Internal Medicine; Visit Provider Internal Medicine Cardiovascular Disease
DX: I50.30 Unspecified diastolic (congestive) heart failure (principal)
CPT/HCPCS: 93306

== ENCOUNTER → 2024-10-14 15:04 | Outpatient (BNV) | payer BC, SELFPAY | PROVIDERS: PCP Internal Medicine; Visit Provider Internal Medicine Cardiovascular Disease | DX: I50.30 Unspecified diastolic (congestive) heart failure (principal) | CPT/HCPCS: 93306; 93356 ==

== ENCOUNTER 2024-10-21 14:25 | Outpatient (AMB) | payer BC, SELFPAY ==
[2024-10-21 14:24] VITALS: BP 122/60; PULSE 69; O2SAT 98; BMI 30.1
--- NOTE | 2024-10-21 14:24 | HO.NEPHOV_ITS ---
Vital Signs 10/21/24 14:24 Height 5 ft 5 in Weight 181 lb 2 oz BMI 30.1 BP 122/60 Blood Pressure Location Rt brachial Position Sitting Pulse 69 Pulse Source Pulse Oximeter Pulse Oximetry (%) 98 Oxygen Delivery Method Room Air Intake Visit Reasons: 5 weeks fu/ Conf Allergies sacubitril [From Entresto] Allergy (Severe, Verified 10/21/24 14:24) Nausea and Vomiting fish derived [FISH] Allergy (Unknown, Verified 10/21/24 14:24) itchy,rash ferrous sulfate Allergy (Verified 10/21/24 14:24) Abdominal Pain valsartan Adverse Reaction (Intermediate, Verified 10/21/24 14:24) Cough terazosin Adverse Reaction (Verified 10/21/24 14:24) Diarrhea metformin Adverse Reaction (Unknown, Uncoded 10/21/24 14:24) mouth sore Medication List - Last Reconciled 10/21/24 by Marcos Romero MD aspirin 81 mg PO DAILY blood pressure monitor (Blood Pressure Kit) As directed blood sugar diagnostic (FreeStyle Lite Strips) As directed check the BS QD carvedilol (Coreg) 12.5 mg PO BID empagliflozin (Jardiance) 10 mg PO DAILY hydralazine 50 mg PO TID 90 days ketoconazole 2% 1 appl topical DAILY nifedipine ER 60 mg PO DAILY rosuvastatin 20 mg PO DAILY spironolacton-hydrochlorothiaz 25-25 mg 1 tab PO DAILY tirzepatide (Mounjaro) 2.5 mg (0.5 mL) subcut QWEEK triamcinolone acetonide 0.1% 1 appl topical BID HPI Comments Details: Sr Lemons is a pleasant 59-year-old woman with a history of diabetes mellitus and hypertension for almost 20 years. She was peripheral as disease. She has had resistant hypertension requiring at least 5 different medications. She has been referred for management of hypertension and chronic kidney disease. Recent serum creatinine was 1.6 mg/dL EGFR of 30 mL/minute. She has a history of heart failure with preserved ejection fraction. She will be followed by Cardiology. She has not tolerated Entresto in the past. Valsartan gave her some cough. At present she is on spironolactone and hydralazine and carvedilol. She underwent angiogram in [place]. She has peripheral vascular disease. She did undergo Doppler ultrasonogram of renal arteries in 2022. There was no definite evidence of renal artery stenosis at the time. 09/13/24 Home BP is better ;SBP is not above 160 and lowest was 140 10/21/24 Feels better JArdiance is not approved BP better controlled PFSH Medical History Heart failure with reduced ejection fraction (HFpEF) heart failure with preserved ejection fraction Cough Subclinical hypothyroidism Tinea versicolor Hypothyroidism Vitamin D deficiency Hypercholesteremia Anemia PAD (peripheral artery disease) CHF (congestive heart failure) Pericardial effusion Acute dermatitis Murmur, cardiac Diabetes Hypertension Surgical History History of cataract surgery History of revascularization procedure of lower extremity S/P complete hysterectomy Family History Father Prostate cancer Mother Hypertension Sister Hypertension Brother No problems noted. 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 Cognitive needs: No Hearing needs: No Vision needs: Yes Physical Exam Vital Signs: Last Vital Signs Pulse 69 10/21/24 14:24 BP 122/60 10/21/24 14:24 Pulse Ox 98 10/21/24 14:24 Oxygen Delivery Method Room Air 10/21/24 14:24 BMI result Body Mass Index 30.1 Comfortable Neck supple no JVD. Lungs entry equal no rales. Heart S1-S2 heard no gallop or rub. Abdomen soft nontender. Neuro alert awake oriented. No asterixis. Extremities no edema. Results Reviewed Results Reviewed: ECHO September 2024 Normal left ventricular size and systolic function. There is moderately increased left ventricular wall thickness. The visually estimated ejection fraction is between 60-65%. Spectral Doppler is indicative of a restrictive filling pattern. E/E prime ratio is >15, consistent with elevated filling pressures. Evidence suggests grade III (severe) diastolic dysfunction. Peak GLS is -15.7%, which is mildly reduced Nephrology Results: Hgb 10.7 g/dl (12.0-16.0) L 09/09/24 WBC 4.4 X10*3/uL (4.8-10.8) L 09/09/24 Plt Count 229 X10*3/uL (160-400) 09/09/24 Sodium 138 mmol/L (135-145) 09/09/24 Potassium 4.7 mmol/L (3.3-5.1) 09/09/24 Chloride 106 mmol/L (96-108) 09/09/24 Carbon Dioxide 23 mmol/L (22-29) 09/09/24 BUN 39 mg/dL (9-16) H 09/09/24 Creatinine 1.54 mg/dL (0.5-1.4) H 09/09/24 Calcium 9.4 mg/dL (8.4-10.2) 09/09/24 Urine Protein 30 (1+) mg/dL (Neg-Trace) H 09/09/24 Urine Creatinine 147.77 mg/dL 09/09/24 Assessment & Plan Assessment & Plan (1) Uncontrolled hypertension: Comment: Resistant hypertension in the setting of chronic kidney disease and possibility as disease. Doppler ultrasonogram did not reveal any renal artery stenosis in 2022. Code(s): I10 - Essential (primary) hypertension Category: Medical Plan: Today blood pressure seems better controlled. s/p 24 hour ambulatory blood pressure monitoring. Encouraged her to stand was low-sodium diet. Keep Aldactazide 25-25 QD Hydralazine 50 mg TID (2) CKD (chronic kidney disease) stage 3, GFR 30-59 ml/min: Comment: Most likely due to underlying hypertensive diabetic kidney disease. No evidence of obstruction based on recent ultrasonogram. Glomerular nephritis/interstitial disease are unlikely based on the bland urine sediments A1C has been elevated Code(s): N18.30 - Chronic kidney disease, stage 3 unspecified Category: Medical Plan: Goal is to slow the progression of renal disease. Maintain blood pressure less than 130/80 Maintain A1c less than 7%. Recent A1C is 8% ( August 2024) Continue to avoid nephrotoxic agents including NSAIDs. SGLT2 inhibitors as indicated (3) Anemia: Comment: Multifactorial. 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 No absolute indication for Epogen at this time. (4) (HFpEF) heart failure with preserved ejection fraction: Comment: Diastolic Dysfunction Code(s): I50.30 - Unspecified diastolic (congestive) heart failure Category: Medical Plan: Currently appears compensated Continue with current regimen and follow up with Cardiology. Discussed importance of low-sodium diet Plan History of hypothyroidism. It is unclear if she is taking any Synthroid at this time. Encouraged her to follow up with PCP. Cholesterol panel is acceptable Orders: Orders Basic Metabolic Panel 3 Months N18.30 - Chronic kidney disease, stage 3 unspecified Complete Blood Count no Diff 3 Months N18.30 - Chronic kidney disease, stage 3 unspecified Coding Level of Care Code Est Pt Level 4 (24560) Diagnoses Uncontrolled hypertension I10 CKD (chronic kidney disease) stage 3, GFR 30-59 ml/min N18.30 Anemia D64.9 (HFpEF) heart failure with preserved ejection fraction I50.30
--- OUTSIDE RECORDS SUMMARY | 2024-10-21 16:59 | XMS_ITS | Clinical Summary ---
Author Organization [employer] Address [address] [place] [address] Care Team Providers Care Dial Refinisher Name Role Phone Unavailable Primary Care Provider [...] Relevant to Health Maintenance Insurance DENTAL - [facility] DENTAL PPO
--- OUTSIDE RECORDS SUMMARY | 2024-10-21 16:59 | XMS_ITS | Data Portability ---
Author Organization [facility], ER [facility] Address [address] [facility]. [facility] [place] [address] Care Team Providers Care Airplane Designer Name Role Phone YON MEDEL Referring Provider [phone] DAVID BARNHART Primary Care Provider [phone] Assessment Encounter Date Assessment Date Assessment LastModified [...] pancreatic elastase, stool 2020 021 aboettche r6 [facility] Lab, [address] [place], [address], 15:30:27 fecal fat, qualitative , stool [address] Lab, [address] [place], [address], 15:49:04 Referral None recorded. Procedures colonoscopy procedure (PROC) - Miralax [address] Endoscopy [facility], [address] [place] [address], [address], 10:54:34 Surgeries None recorded. Imaging None recorded. Medication Orders None recorded. Patient TargetsNo targets recorded. Patient Instructions Encounter Date Encounter Id Patient Instructions Last Modified By Organization Details Last Modified Time 08/31/2020 [id number] diet - low fodmap afotouhie Not availab le 08/31/2020 18:16:52 anemia: care instructions afotouhie Not available 08/31/2020 18:16:52 10/16/2020 [id number] diarrhea: care instructions afotouhie Not available 10/16/2020 [...] Recorded Time 09/14/19 Colonoscopy completed Juli Scott [facility] 10/11/2020 17:19:09 06/30/19 10 hysterectomy completed Dede De Leon [facility] 08/31/2020 16:57:34 Imaging Results Imaging [...] No t Available FreeStyle Enrike 14 Day [place] USE TO CHECK BLOOD GLUCOSE THREE TIMES [...] Updated DateTime 08/31/2020 160.02 cm 34.4 kg/m2 38677.92 g Dede De Leon [facility] 08/31/2020 16:50:09 Date Recorded Body height Body mass index (BMI) Body weight Provider Name and Address Organization Details Last Updated DateTime 10/16/2020 160.02 cm 31.9 kg/m2 43619.63 g Dede De Leon [facility] 10/16/2020 15:16:50 Social History Question Answer Notes LastModified by Organizat ion Details LastModified Time Tobacco Smoking Status Never Smoker Dede ye [facility] 08/31/2020 16:56:24 Do You [...] (COVID-19) vaccine, UNSPECIFIED completed KEZIA Márquez - [facility] 10/16/2020 15:20:04 Past Encounters Encounter ID Performer Location Encounter Start Date Encounter Closed Date Diagnosis/Indication Diagnosis SNOMED-CT Code Diagnosis ICD10 Code Diagnosis Note [id number] ORION SEAY MD [facility] [address] [facility] [place] [place] [address] 08/31/2020 15:51:54 09/01/2020 14:18:50 Anemia [id number] D64.9 Patient was referred to us by [...] s and agrees to proceed. Abdominal bloating 57651 9008 R14.0 This has been a new and progressiv [place] worsening issue for the patient.- Advised to start following a low FODMAP diet - Advised to avoid carbonated beverages, drinking through straws, excessive gum chewing, foods with high fructose load such as juices, or artificial sweeteners - Suggested continuing to avoid lactose [id number] ORION SEAY MD [facility] [address] [facility] [place], [place] [address] 10/16/2020 14:28:37 10/16/2020 16:29:00 Anemia [id number] D64.9 Patient was referred to us by [...] with PCP in this regard Abdominal bloating 41931 9008 R14.0 This has been an ongoing issue for the patient but appears to be improving with dietary changes. - Advised to start following a low FODMAP diet - Advised to continue to avoid carbonated beverages, drinking through straws, excessive gum chewing, foods with high fructose load such as juices, or artificial sweeteners - Suggested continuing to avoid lactose Diarrhea 78515246 R19.7 Patient reports occasional diarrhea with ingestion [...] Member ID Guarantor Name 08/31/2020 1 [place] [facility] [id number] Vesta Cronin [id number] Vesta Cronin 10/16/[address] [facility] [id number] Vesta Cronin [id number] Vesta Cronin Notes Date Note Type [...] no other abdominal surgeries. ORION SEAY MD [address] [place], [address], [facility] 08/31/2020 18:17:13 10/16/2020 [...] no other abdominal surgeries. ORION SEAY MD [address] [place], [address], [facility] 10/16/2020 16:12:58 OBGyn Episode No OBEpisode recorded.
--- OUTSIDE RECORDS SUMMARY | 2024-10-21 16:59 | XMS_ITS | Encounter Summary ---
Author Organization [employer] [facility] Address [address] [facility] [address] [facility] [address] 7t [place] [address] Care Team Providers Care Mud Boss Name Role Phone Unavailable Primary Care Provider Unavailabl e Reason for Visit * Reason Onset Date Comments Appointment 01/27/2023 Encounter Details Date Type Department Care Team (Late st Contact Info) Description 01/27/2023 Telephone C ADULT DENTAL [address] [place], [place] [phone] Krunal Garcia DDS [address] [place], [place] [phone] Appointment Social History Tobacco Use Types Packs/Day [...] to schedule patient per dates offered by [facility] dental, she stated that she contacted E and they would be sending notes regarding her case. documented in this encounter Plan of Treatment Not on file documented as of this encounter Visit Diagnoses Not on filedocumented in this encounter
== END 2024-10-21 14:48 | disposition home or self-care (01) ==
LOC: HO.HKA 14:25
PROVIDERS: PCP Internal Medicine; Visit Provider Internal Medicine Hypertension Specialist
DX: I10 Essential (primary) hypertension (principal); N18.30 Chronic kidney disease, stage 3 unspecified; D64.9 Anemia, unspecified; I50.30 Unspecified diastolic (congestive) heart failure
CPT/HCPCS: 99214

== ENCOUNTER 2025-01-27 15:17 | Outpatient (AMB) | payer BC, SELFPAY ==
--- OUTSIDE RECORDS SUMMARY | 2025-01-27 15:22 | XMS_ITS | Clinical Summary ---
Author Organization [employer] Address [address] [place] [address] Care Team Providers Care Paralegal Supervisor Name Role Phone Unavailable Primary Care Provider [...] Screening 1964 SDOH Screening 1964 Sigmoidoscopy 1964 Disability Screening 1964 Alcohol/Substance Use Screening 1976 Hepatitis C Screening 01/30/1982 DTaP/Tdap/Td Vaccines (1 - Tdap) 01/30/1983 Pap Smear 01/30/1985 Cervical Cancer Screening 01/30/1994 HPV/Cotest 01/30/1994 Mammogram 2004 Pneumococcal Vaccine: 50+ Years (1 of 1 - PCV) 01/30/2014 Zoster Vaccines (1 of 2) 01/30/2014 Influenza Vaccine (#1) 2025 03/26/2023, 2021 Tobacco Screening 05/25/2025 05/25/2024 Dental [...] patient's age to complete this topic Meningococcal B Vaccine Aged Out No l onger eligible based on patient's age to complete [...] Relevant to Health Maintenance Insurance DENTAL - [facility] PPO
[2025-01-27 15:26] VITALS: BP 130/78; PULSE 75; RESP 18; TEMP 36.2; O2SAT 100; BMI 29.0
--- NOTE | 2025-01-27 15:26 | MHC.PC.OV ---
Vital Signs 01/27/25 15:26 Height 5 ft 5 in Weight 174 lb 2 oz BMI 29.0 BP 130/78 Blood Pressure Location Lt brachial Position Sitting Respiration 18 Pulse 75 Pulse Source Pulse Oximeter Temp 97.1 F Temp Source Temporal Artery Scan Pulse Oximetry (%) 100 Oxygen Delivery Method Room Air Intake Visit Reasons: DM , HTN Allergies sacubitril (From Entresto) Allergy (Severe, Verified 10/21/24 14:24) Nausea and Vomiting fish derived (FISH) Allergy (Unknown, Verified 10/21/24 14:24) itchy,rash ferrous sulfate Allergy (Verified 10/21/24 14:24) Abdominal Pain valsartan Adverse Reaction (Intermediate, Verified 10/21/24 14:24) Cough terazosin Adverse Reaction (Verified 10/21/24 14:24) Diarrhea metformin Adverse Reaction (Unknown, Uncoded 10/21/24 14:24) mouth sore Tobacco use date assessed: 10/07/24 Dental Screening Dental Screen Date: 01/27/25 Did you have a dental visit in the last 12 months?: Yes Did you have a dental problem in the last 6 months where you did not have access to dental care?: No Was dental information given to patient?: Patient has dentist [facility] Medical History Heart failure with reduced ejection fraction (HFpEF) heart failure with preserved ejection fraction Cough Subclinical hypothyroidism Tinea versicolor Hypothyroidism Vitamin D deficiency Hypercholesteremia Anemia PAD (peripheral artery disease) CHF (congestive heart failure) Pericardial effusion Acute dermatitis Murmur, cardiac Diabetes Hypertension Surgical History History of cataract surgery History of revascularization procedure of lower extremity S/P complete hysterectomy Family History Father Prostate cancer Mother Hypertension Sister Hypertension Brother No problems noted. 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 Cognitive needs: No Hearing needs: No Vision needs: Yes Questionnaire PHQ-9 Over the last 2 weeks, how often have you been bothered by any of the following problems? 1. Little interest or pleasure in doing things: not at all 2. Feeling down, depressed, or hopeless: not at all 3. Trouble falling or staying asleep, or sleeping too much: not at all 4. Feeling tired or having little energy: not at all 5. Poor appetite or overeating: not at all 6. Feeling bad about yourself - or that you are a failure or have let yourself or your family down: not at all 7. Trouble concentrating on things, such as reading the newspaper or watching television: not at all 8. Moving or speaking so slowly that other people could have noticed. Or the opposite - being so fidgety or restless that you have been moving around a lot more than usual: not at all 9. Thoughts that you would be better off or of hurting yourself in some way: not at all Total score: 0 Source: Developed by Drs. Vinh Garcia, Alicia Allred, Jordan Olvera and colleagues, with an educational mela from [employer]. Thrive Questionnaire Date Thrive assessed: 07/08/24 I am a: Patient What is your living situation today?: I have a steady place to live Within the past 12 months, did the food you bought not last and you didn't have the money to get more?: Never true Within the past 12 months, did you worry whether your food would run out before you got money to buy more?: Never true Do you have trouble paying for medicines?: No Do you have trouble getting transportation to medical appointments?: No Do you have trouble paying your heating and electricity bill?: No Do you have trouble taking care of your child, family member or friend?: No Do you have trouble with day-to-day activities such as bathing, preparing meals, shopping, managing finances, etc.?: No Are you currently unemployed and looking for a job?: I choose not to answer this question Are you interested in more education?: I choose not to answer this question Please select the resources that you would like help with: None Currently or been in a relationship where the following occur: I choose not to answer THRIVE Score: 0 AUDIT C Alcohol Use Questionnaire (AUDIT-C) 1. How often do you have a drink containing alcohol?: Never 3. How often do you have six or more drinks on one occasion?: Never Total Score: 0 FABIO-7 AMB Questionnaire FABIO-7 Date FABIO - 7 assessed: 07/08/24 Feeling nervous, anxious, or on edge: 0 = Not at all Not being able to stop or control worryin = Not at all Worrying too much about different things: 0 = Not at all Trouble relaxin = Not at all Being so restless that it is hard to sit still: 0 = Not at all Becoming easily annoyed or irritable: 0 = Not at all Feeling afraid as if something awful might happen: 0 = Not at all Total FABIO-7 score (0-4 normal; 5-9 mild; 10-14 moderate; 15-21 severe): 0 Source: Developed by Drs. Vinh Garcia, Alicia Allred, Jordan Olvera and colleagues, with an educational mela from [employer]. Physical exam (Primary Care) Vital Signs: Last Vital Signs Temp 97.1 F 01/27/25 15:26 Pulse 75 01/27/25 15:26 Resp 18 01/27/25 15:26 BP 130/78 01/27/25 15:26 Pulse Ox 100 01/27/25 15:26 Oxygen Delivery Method Room Air 01/27/25 15:26 BMI result Body Mass Index 29.0 Tobacco/Smoking Status: Tobacco use Status Tobacco use date assessed 10/07/24 01/27/25 15:33 Patient Tobacco Use Status Never used Tobacco 01/27/25 15:33 Tobacco use type Cigarette 01/27/25 15:33 e-Cigarette/Vaping Use Never Used 01/27/25 15:33 PHQ-9: PHQ-9 Score PHQ-9: Total score 0 01/27/25 15:52 Thrive Assessment: Date of Thrive Assessment Date Thrive assessed 07/08/24 01/27/25 15:33 Currently or been in a relationship where the following occur: I choose not to answer Const General: alert; No acute distress Eyes Conjunctivae: conjunctivae normal Resp Auscultation: clear to auscultation bilaterally Cardio Rate: regular rate Rhythm: regular rhythm GI Inspection: Yes normal to inspection Extrem General: Yes normal to inspection and No edema Results AMB Hemoglobin A1c AMB Hemoglobin A1c 8.1 % Last Edit by Kati Hines CMA on 01/27/25 15:38 Results Reviewed Results Reviewed: Laboratory Last Values Hgb A1c (Clinic) 8.1 % (4.0-6.0) H 01/27/25 15:33 Coding Level of Care Code Est Pt Level 4 (42435) Complex EM visit Add On G2211 Diagnoses Type 2 diabetes mellitus with hyperglycemia E11.65 Hypercholesteremia E78.00 PAD (peripheral artery disease) I73.9 (HFpEF) heart failure with preserved ejection fraction I50.30 Hypertension I10 Subclinical hypothyroidism E03.8 CKD (chronic kidney disease) stage 3, GFR 30-59 ml/min N18.30 Anemia D64.9 Assessment & Plan Assessment & Plan (1) Type 2 diabetes mellitus with hyperglycemia: Code(s): E11.65 - Type 2 diabetes mellitus with hyperglycemia Category: Medical Plan: Decrease the amount of carbohydrate intake, pasta, bread, rice and potatoes are all sugar and that is aside from all the sweet stuff, remember that fruits are good but they are Sweet also. Hemoglobin A1c goal of less than 6.5. Patient is presently on Mounjaro 2.5 mg once a week (2) Hypercholesteremia: Code(s): E78.00 - Pure hypercholesterolemia, unspecified Category: Medical Plan: Avoid fried foods, chicken skin, eggs, butter margarine, pastries and meat. Be it pork or beef they have a lot of cholesterol on rosuvastatin LDL goal of less than 100 (3) PAD (peripheral artery disease): Comment: 2020 - left leg angiogram in [place] Code(s): I73.9 - Peripheral vascular disease, unspecified Category: Medical Plan: Control the cholesterol, weight, blood pressure, diabetes (4) (HFpEF) heart failure with preserved ejection fraction: Comment: Diastolic Dysfunction Code(s): I50.30 - Unspecified diastolic (congestive) heart failure Category: Medical Plan: Continue with present medication, compensated control the blood pressure on spironolactone (5) Hypertension: Code(s): I10 - Essential (primary) hypertension Category: Medical Plan: Continue with blood pressure medication. Decrease salt intake and exercise presently on spironolactone hydrochlorothiazide nifedipine 60 hydralazine 50 mg 3 times a day carvedilol 12.5 mg twice a day (6) Subclinical hypothyroidism: Code(s): E03.8 - Other specified hypothyroidism Category: Medical Plan: Discussed with the patient about thyroid control (7) CKD (chronic kidney disease) stage 3, GFR 30-59 ml/min: Comment: Most likely due to underlying hypertensive diabetic kidney disease. No evidence of obstruction based on recent ultrasonogram. Glomerular nephritis/interstitial disease are unlikely based on the bland urine sediments A1C has been elevated Code(s): N18.30 - Chronic kidney disease, stage 3 unspecified Category: Medical Plan: Keep well hydrated control diabetes hypertension cholesterol (8) Anemia: Comment: Multifactorial. 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 Plan History of Present Illness The patient is a 59-year-old female presenting for management of multiple chronic conditions including diabetes mellitus, hypertension, and chronic kidney disease. The patient has a history of diabetes mellitus with a recent hemoglobin A1c of 8.1, indicating suboptimal control. She is currently on Mounjaro 2.5 mg once a week, with plans to increase the dose to 5 mg and consider adding Farxiga for better glycemic control. Hypertension has been resistant to treatment, with no renal artery stenosis found on a Doppler study in 2022. The patient is on multiple antihypertensive medications including spironolactone, hydrochlorothiazide, nifedipine, hydralazine, and carvedilol. The patient has chronic kidney disease with a creatinine level of 1.54, and she follows up with nephrology. She has been advised to control blood pressure and blood sugar, and to avoid nephrotoxic agents to slow disease progression. Cardiomyopathy is present with moderate left ventricular hypertrophy and grade 3 diastolic dysfunction, as well as a mildly dilated left atrium. An echocardiogram showed normal left ventricular ejection fraction but moderately elevated right ventricular systolic pressure and a small pericardial effusion. The patient also has peripheral arterial disease with moderate arterial insufficiency on the right. She experiences occasional swelling, which may be exacerbated by medication side effects and prolonged sitting. Health Maintenance - Discussed shingles vaccination, which is not required but recommended to reduce the risk of shingles. - Patient advised to maintain hydration and engage in regular physical activity such as walking. Social History - Exercise: Patient advised to engage in regular walking to improve health. Review of Systems - Cardiovascular: Reports occasional swelling, denies chest pain or palpitations. - Endocrine: Reports elevated blood sugar levels. Physical Exam Results - Labs: Hemoglobin A1c 8.1, creatinine 1.54, anemia with hemoglobin 10.7 and hematocrit 33.5, LDL 69, elevated thyroid levels. - Imaging: Echocardiogram showing normal left ventricular ejection fraction, moderate left ventricular hypertrophy, grade 3 diastolic dysfunction, mildly dilated left atrium, moderately elevated right ventricular systolic pressure, and small pericardial effusion. - Tests: Doppler study in 2022 showing no renal artery stenosis. Plan The management plan for the patient's diabetes includes increasing the dose of Mounjaro to 5 mg weekly and considering the addition of Farxiga to improve glycemic control, given the current hemoglobin A1c of 8.1. For hypertension, the patient will continue on her current regimen of spironolactone, hydrochlorothiazide, nifedipine, hydralazine, and carvedilol, with a focus on achieving better blood pressure control. Chronic kidney disease management involves regular follow-up with nephrology, maintaining blood pressure and blood sugar control, and avoiding nephrotoxic agents to slow disease progression. The patient is advised to stay hydrated and engage in regular physical activity to manage peripheral arterial disease and reduce swelling. Cardiomyopathy management includes monitoring the echocardiogram findings, particularly the moderate left ventricular hypertrophy and grade 3 diastolic dysfunction, and ensuring optimal control of blood pressure and cholesterol levels. Patient was informed and verbally consented to the use of an ambient scribe for clinic note documentation during this visit. Discussion Notes During the visit, we discussed the importance of controlling blood sugar levels, and I recommended increasing the Mounjaro dose and considering Farxiga to achieve better glycemic control. We also reviewed the patient's hypertension management plan, emphasizing the need for strict adherence to the current medication regimen to improve blood pressure control. I advised the patient on the importance of regular follow-up with nephrology for chronic kidney disease management and discussed the need to avoid nephrotoxic agents. We talked about the echocardiogram findings and the significance of managing cardiomyopathy through blood pressure and cholesterol control. Patient Instructions - Increase Mounjaro dose to 5 mg weekly and consider adding Farxiga for better blood sugar control. - Continue current hypertension medications and monitor blood pressure regularly. - Follow up with nephrology for chronic kidney disease management and avoid nephrotoxic agents. - Engage in regular physical activity and stay hydrated to manage peripheral arterial disease and reduce swelling. Orders: Orders AMB Hemoglobin A1c Today Z13.9 - Encounter for screening, unspecified Medications: New dapagliflozin propanediol (Farxiga) 5 mg PO DAILY 30 tabs 3RF E11.65 - Type 2 diabetes mellitus with hyperglycemia Changed From tirzepatide (Mounjaro) for 4 weeks 2.5 mg (0.5 mL) subcut QWEEK 2 mL 3RF E11.65 - Type 2 diabetes mellitus with hyperglycemia To tirzepatide for 4 weeks 5 mg (0.5 mL) subcut QWEEK 2 mL 3RF E11.65 - Type 2 diabetes mellitus with hyperglycemia
== END 2025-01-27 16:03 | disposition home or self-care (01) ==
LOC: HO.HMCH 15:17
PROVIDERS: PCP Internal Medicine; Visit Provider Internal Medicine
DX: E11.65 Type 2 diabetes mellitus with hyperglycemia (principal); I12.9 Hypertensive chronic kidney disease with stage 1 through stage 4 chronic kidney disease, or unspecified chronic kidney disease; I50.30 Unspecified diastolic (congestive) heart failure; N18.30 Chronic kidney disease, stage 3 unspecified; E78.00 Pure hypercholesterolemia, unspecified; I73.9 Peripheral vascular disease, unspecified; E03.8 Other specified hypothyroidism; D64.9 Anemia, unspecified

== ENCOUNTER → 2025-01-27 15:17 | Outpatient (BNVA) | payer BC, SELFPAY | PROVIDERS: PCP Internal Medicine; Visit Provider Internal Medicine | DX: E11.65 Type 2 diabetes mellitus with hyperglycemia (principal); E11.51 Type 2 diabetes mellitus with diabetic peripheral angiopathy without gangrene; E78.00 Pure hypercholesterolemia, unspecified; I13.0 Hypertensive heart and chronic kidney disease with heart failure and stage 1 through stage 4 chronic kidney disease, or unspecified chronic kidney disease; I50.30 Unspecified diastolic (congestive) heart failure; N18.30 Chronic kidney disease, stage 3 unspecified; E03.8 Other specified hypothyroidism; I42.9 Cardiomyopathy, unspecified; Z79.899 Other long term (current) drug therapy | CPT/HCPCS: 83036; 96127 ==

== ENCOUNTER 2025-02-11 09:34 | Outpatient (REF) | payer BC, SELFPAY ==
--- OUTSIDE RECORDS SUMMARY | 2025-02-11 09:43 | XMS_ITS | Clinical Summary ---
Author Organization [employer] Address [address] [place] [address] Care Team Providers Care Acid Plant Helper Name Role Phone Unavailable Primary Care Provider [...] Relevant to Health Maintenance Insurance DENTAL - PENDING SALE TO [facility] PPO
[2025-02-11 10:27] LABS: Hematocrit 30.1 % (37.0-47.0); Hemoglobin 9.5 g/dl (12.0-16.0); Mean Corpuscular HGB Conc 31.6 g/dl (31.0-35.0); Mean Corpuscular Hemoglobin 26.8 pg (27.0-33.0); Mean Corpuscular Volume 84.8 fL (80.0-98.0); NRBC Abs Auto 0.000 X10*3/uL (0.0-0.012); NRBC Pct Auto 0.0 /100WBC (0.0-0.2); Platelet Count 201 X10*3/uL (160-400); Red Blood Count 3.55 X10*6/uL (4.20-5.50); White Blood Count 5.4 X10*3/uL (4.8-10.8)
[2025-02-11 10:56] LABS: Anion Gap 13 (12-20); Blood Urea Nitrogen 34 mg/dL (9-16); Calcium 9.5 mg/dL (8.4-10.2); Carbon Dioxide 24 mmol/L (22-29); Chloride 102 mmol/L (96-108); Estimated Glomerular Filt Rate 33; Potassium 5.4 mmol/L (3.3-5.1); Sodium 134 mmol/L (135-145)
== END 2025-02-11 09:35 | disposition home or self-care (01) ==
LOC: HO.LAB 09:34
PROVIDERS: Internal Medicine Hypertension Specialist; PCP Internal Medicine; Visit Provider Psychiatry & Neurology Neurology
DX: N18.30 Chronic kidney disease, stage 3 unspecified (principal)
CPT/HCPCS: 36415; 80048; 85027

== ENCOUNTER 2025-02-14 14:39 | Outpatient (AMB) | payer BC, SELFPAY ==
[2025-02-14 14:45] VITALS: BP 142/64; PULSE 62; O2SAT 98; BMI 29.3
--- NOTE | 2025-02-14 14:45 | HO.NEPHOV_ITS ---
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 Required: No Accompanied by: Self / Same As Patient Allergies sacubitril (From Entresto) Allergy (Severe, Verified 02/14/25 14:47) Nausea and Vomiting fish derived (FISH) Allergy (Unknown, Verified 02/14/25 14:47) itchy,rash ferrous sulfate Allergy (Verified 02/14/25 14:47) Abdominal Pain valsartan Adverse Reaction (Intermediate, Verified 02/14/25 14:47) Cough terazosin Adverse Reaction (Verified 02/14/25 14:47) Diarrhea metformin Adverse Reaction (Unknown, Uncoded 10/21/24 14:24) mouth sore Medication List - Last Reconciled 02/14/25 by Marcos Romero MD aspirin 81 mg PO DAILY blood pressure monitor (Blood Pressure Kit) As directed blood sugar diagnostic (FreeStyle Lite Strips) As directed check the BS QD carvedilol (Coreg) 12.5 mg PO BID hydralazine 50 mg PO TID 90 days ketoconazole 2% 1 appl topical DAILY nifedipine ER 60 mg PO DAILY rosuvastatin 20 mg PO DAILY spironolacton-hydrochlorothiaz 25-25 mg 1 tab PO DAILY tirzepatide 5 mg (0.5 mL) subcut QWEEK triamcinolone acetonide 0.1% 1 appl topical BID HPI Comments Details: Sr Lemons is a pleasant 59-year-old woman with a history of diabetes mellitus and hypertension for almost 20 years. She was peripheral as disease. She has had resistant hypertension requiring at least 5 different medications. She has been referred for management of hypertension and chronic kidney disease. Recent serum creatinine was 1.6 mg/dL EGFR of 30 mL/minute. She has a history of heart failure with preserved ejection fraction. She will be followed by Cardiology. She has not tolerated Entresto in the past. Valsartan gave her some cough. At present she is on spironolactone and hydralazine and carvedilol. She underwent angiogram in [place]. She has peripheral vascular disease. She did undergo Doppler ultrasonogram of renal arteries in 2022. There was no definite evidence of renal artery stenosis at the time. 09/13/24 Home BP is better ;SBP is not above 160 and lowest was 140 10/21/24 Feels better ; Jardiance is not approved ; BP better controlled 02/14/25 60-year-old female presenting for management of hypertension and chronic kidney disease. Hypertension is persistent with home readings of 161/63 mmHg, but in-office readings are normal. No lightheadedness or dizziness reported. Chronic kidney disease is stable with consistent kidney function tests. Medications include Altactazide and Hydralazine, with no new additions. Hyperkalemia noted with potassium at 5.4 mmol/L, slightly above normal. Diet includes bananas and nuts, contributing to elevated potassium. Anemia present with hemoglobin at 9.5 g/dL, likely related to kidney disease. No signs of bleeding, such as black stools, reported. [facility] Medical History Heart failure with reduced ejection fraction (HFpEF) heart failure with preserved ejection fraction Cough Subclinical hypothyroidism Tinea versicolor Hypothyroidism Vitamin D deficiency Hypercholesteremia Anemia PAD (peripheral artery disease) CHF (congestive heart failure) Pericardial effusion Acute dermatitis Murmur, cardiac Diabetes Hypertension Surgical History History of cataract surgery History of revascularization procedure of lower extremity S/P complete hysterectomy Family History Father Prostate cancer Mother Hypertension Sister Hypertension Brother No problems noted. 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 Cognitive needs: No Hearing needs: No Vision needs: Yes Physical Exam Vital Signs: Last Vital Signs Pulse 62 02/14/25 14:45 BP 142/64 H 02/14/25 14:45 Pulse Ox 98 02/14/25 14:45 Oxygen Delivery Method Room Air 02/14/25 14:45 BMI result Body Mass Index 29.3 Comfortable Neck supple no JVD. Lungs entry equal no rales. Heart S1-S2 heard no gallop or rub. Abdomen soft nontender. Neuro alert awake oriented. No asterixis. Extremities no edema. Results Reviewed Nephrology Results: Hgb, (12.0-16.0) 9.5 g/dl L 02/11/25 WBC, (4.8-10.8) 5.4 X10*3/uL 02/11/25 Plt Count, (160-400) 201 X10*3/uL 02/11/25 Sodium, (135-145) 134 mmol/L L 02/11/25 Potassium, (3.3-5.1) 5.4 mmol/L H 02/11/25 Chloride, (96-108) 102 mmol/L 02/11/25 Carbon Dioxide, (22-29) 24 mmol/L 02/11/25 BUN, (9-16) 34 mg/dL H 02/11/25 Creatinine, (0.5-1.4) 1.59 mg/dL H 02/11/25 Calcium, (8.4-10.2) 9.5 mg/dL 02/11/25 Renal US 06/24/23 Assessment & Plan Assessment & Plan (1) Uncontrolled hypertension: Comment: Resistant hypertension in the setting of chronic kidney disease and possibility as disease. Doppler ultrasonogram did not reveal any renal artery stenosis in 2022. Code(s): I10 - Essential (primary) hypertension Category: Medical Plan: Today blood pressure seems better controlled. s/p 24 hour ambulatory blood pressure monitoring. Encouraged her to stand was low-sodium diet. Keep Aldactazide 25-25 QD Hydralazine 50 mg TID (2) CKD (chronic kidney disease) stage 3, GFR 30-59 ml/min: Comment: Most likely due to underlying hypertensive diabetic kidney disease. No evidence of obstruction based on recent ultrasonogram. Glomerular nephritis/interstitial disease are unlikely based on the bland urine sediments A1C has been elevated Code(s): N18.30 - Chronic kidney disease, stage 3 unspecified Category: Medical Plan: Goal is to slow the progression of renal disease. Maintain blood pressure less than 130/80 Maintain A1c less than 7%. Recent A1C is 8% ( August 2024) Continue to avoid nephrotoxic agents including NSAIDs. SGLT2 inhibitors as indicated ; (3) Anemia: Comment: Multifactorial. 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 No absolute indication for Epogen at this time. recheck Iron/Ferritin ( ordered) (4) (HFpEF) heart failure with preserved ejection fraction: Comment: Diastolic Dysfunction Code(s): I50.30 - Unspecified diastolic (congestive) heart failure Category: Medical Plan: Currently appears compensated Continue with current regimen and follow up with Cardiology. Discussed i mportance of low-sodium diet Plan History of hypothyroidism. It is unclear if she is taking any Synthroid at this time. Encouraged her to follow up with PCP. Cholesterol panel is acceptable Mild Hyperkalemia In a setting of CKD/Aldactone Advised to stay on low K diet Recheck If > 5.5 , will need to add Lokelma Orders: Orders Basic Metabolic Panel 4 Months N18.30 - Chronic kidney disease, stage 3 unspecified Electrolytes 2 Weeks D64.9 - Anemia, unspecified, N18.30 - Chronic kidney disease, stage 3 unspecified Ferritin 2 Weeks D64.9 - Anemia, unspecified, N18.30 - Chronic kidney disease, stage 3 unspecified IRON PROFILE 2 Weeks D64.9 - Anemia, unspecified, N18.30 - Chronic kidney disease, stage 3 unspecified Coding Level of Care Code Est Pt Level 4 (74676) Diagnoses Uncontrolled hypertension I10 CKD (chronic kidney disease) stage 3, GFR 30-59 ml/min N18.30 Anemia D64.9 (HFpEF) heart failure with preserved ejection fraction I50.30
== END 2025-02-14 14:59 | disposition home or self-care (01) ==
LOC: HO.HKA 14:40
PROVIDERS: PCP Internal Medicine; Visit Provider Internal Medicine Hypertension Specialist
DX: I10 Essential (primary) hypertension (principal); N18.30 Chronic kidney disease, stage 3 unspecified; D64.9 Anemia, unspecified; I50.30 Unspecified diastolic (congestive) heart failure
CPT/HCPCS: 99214

== ENCOUNTER 2025-03-02 09:27 | Outpatient (REF) | payer BC, SELFPAY ==
--- OUTSIDE RECORDS SUMMARY | 2025-03-02 10:15 | XMS_ITS | Encounter Summary ---
Author Organization [facility] Address [address] [place] [address] Care Team Providers Care Checkroom Chief Name Role Phone Unavailable Primary Care Provider Unavailabl e Reason for Visit * Reason Onset Date Comments Appointment 01/27/2023 Encounter Details Date Type Department Care Team (Late st Contact Info) Description 01/27/2023 Telephone C ADULT DENTAL [address], [place] [phone] Krunal Garcia DDS [address], [place] [phone] Appointment Social History Tobacco Use Types Packs/Day [...] to schedule patient per dates offered by [facility], she stated that she contacted E and they would be sending notes regarding her case. documented in this encounter Plan of Treatment Not on file documented as of this encounter Visit Diagnoses Not on filedocumented in this encounter
--- OUTSIDE RECORDS SUMMARY | 2025-03-02 10:15 | XMS_ITS | Clinical Summary ---
Author Organization [employer] Address [address] [place] [address] Care Team Providers Care Gas Appliance Servicer Name Role Phone Unavailable Primary Care Provider [...] Relevant to Health Maintenance Insurance DENTAL - [facility] D[facility]AL PPO
[2025-03-02 10:52] LABS: Anion Gap 13 (12-20); Carbon Dioxide 23 mmol/L (22-29); Chloride 106 mmol/L (96-108); Iron 73 mcg/dL (30-160); Percent Iron Saturation 26 % (15-50); Potassium 5.3 mmol/L (3.3-5.1); Sodium 137 mmol/L (135-145); Total Iron Binding Capacity 279 mcg/dL (228-428); Unsaturated Iron Binding 206 ug/dL
[2025-03-02 11:00] LABS: Ferritin 204 ng/mL (10-250)
== END 2025-03-02 09:28 | disposition home or self-care (01) ==
LOC: HO.LAB 09:27
PROVIDERS: PCP Internal Medicine; Visit Provider Internal Medicine Hypertension Specialist
DX: N18.30 Chronic kidney disease, stage 3 unspecified (principal); D63.1 Anemia in chronic kidney disease
CPT/HCPCS: 36415; 80051; 82728; 83540

== ENCOUNTER 2025-03-15 14:55 | Outpatient (AMB) | payer BC, SELFPAY ==
--- NOTE | 2025-03-15 15:12 | MHC.OFFVIS ---
Vital Signs 03/15/25 15:15 Height 5 ft 5 in Weight 171 lb 15.369 oz BMI 28.6 BP 120/80 Blood Pressure Location Lt brachial Position Sitting Pulse 63 Intake Visit Reasons: 6m follw up Intake Note: 6 month follow-up with ekg c/o tightness center of chest Sales Engagement Manager Required: No Allergies sacubitril (From Entresto) Allergy (Severe, Verified 02/14/25 14:47) Nausea and Vomiting fish derived (FISH) Allergy (Unknown, Verified 02/14/25 14:47) itchy,rash ferrous sulfate Allergy (Verified 02/14/25 14:47) Abdominal Pain valsartan Adverse Reaction (Intermediate, Verified 02/14/25 14:47) Cough terazosin Adverse Reaction (Verified 02/14/25 14:47) Diarrhea metformin Adverse Reaction (Unknown, Uncoded 10/21/24 14:24) mouth sore Medication List - Last Reconciled 03/15/25 by Rolando Alegria MD aspirin 81 mg PO DAILY blood pressure monitor (Blood Pressure Kit) As directed blood sugar diagnostic (FreeStyle Lite Strips) As directed check the BS QD carvedilol (Coreg) 12.5 mg PO BID hydralazine 50 mg PO TID 90 days ketoconazole 2% 1 appl topical DAILY nifedipine ER 60 mg PO DAILY rosuvastatin 20 mg PO DAILY spironolacton-hydrochlorothiaz 25-25 mg 1 tab PO DAILY tirzepatide 5 mg (0.5 mL) subcut QWEEK triamcinolone acetonide 0.1% 1 appl topical BID HPI Comments Details: 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 She had a 24 hour blood pressure monitoring in July which showed significantly elevated blood pressure throughout the day. Since then her medications have been adjusted. More recently noted to have mild hyperkalemia and being followed by Nephrology closely. A blood pressure generally are now better control especially during the daytime. However she says at nighttime a blood pressure is still elevated in the 140 systolic range. However over the last couple weeks she has been having increasing symptoms of congestion feeling like she did when she had heart failure and also last week she had significant pressure in his chest similar to when she was in heart failure. She has not had any significant weight gain or fluid gain as per her. She has been watching the salt in his diet. She says she has been taking her medications religiously. PFSH Medical History Heart failure with reduced ejection fraction (HFpEF) heart failure with preserved ejection fraction Cough Subclinical hypothyroidism Tinea versicolor Hypothyroidism Vitamin D deficiency Hypercholesteremia Anemia PAD (peripheral artery disease) CHF (congestive heart failure) Pericardial effusion Acute dermatitis Murmur, cardiac Diabetes Hypertension Surgical History History of cataract surgery History of revascularization procedure of lower extremity S/P complete hysterectomy Family History Father Prostate cancer Mother Hypertension Sister Hypertension Brother No problems noted. 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 Cognitive needs: No Hearing needs: No Vision needs: Yes Review of Systems Const Denies chills, Denies fatigue, Denies fever(s), Denies frequent falls, Denies weakness, Denies weight gain and Denies weight loss ENT Denies dizziness Card Denies chest pain, Denies leg edema, Denies lightheadedness, Denies palpitations, Denies dyspnea, Denies dyspnea on exertion, Denies orthopnea and Denies other (loss of consciousness) Resp Denies cough, Denies dyspnea and Denies dyspnea on exertion GI Denies hematochezia and Denies change in stool character Musc Denies abnormal gait, Denies muscle weakness, Denies numbness, Denies radiating pain into limb and Denies tingling Neuro Denies Abnormal speech present, Denies abnormal gait, Denies dizziness, Denies frequent falls, Denies numbness, Denies tingling and Denies weakness Endo Denies fatigue and Denies palpitations Physical Exam Vital Signs: Last Vital Signs Pulse 63 03/15/25 15:15 BP 120/80 03/15/25 15:15 BMI result Body Mass Index 28.6 Const General: cooperative, comfortable, no acute distress, alert, awake and well groomed Nutritional Appearance: overweight Orientation/consciousness: patient oriented x3 Limitations: no limitations HEENT Head: Yes normocephalic and Yes atraumatic Neck Neck: Yes trachea midline, Yes supple and Yes JVD Resp Effort & Inspection: normal respiratory effort Auscultation: clear to auscultation bilaterally Cardio Jugular venous distension: JVD Rate: regular rate Rhythm: regular rhythm Heart sounds: S1 normal heart sound present, S2 normal heart sound present, no click, no gallops, no murmurs and no rubs GI Auscultation: normal bowel sounds Skin General skin exam: no rashes or lesions noted Neuro General: patient oriented x3 and no focal motor deficits Speech: No Abnormal speech present Extrem General: No clubbing, No cyanosis and Yes edema Psych Appearance: grossly normal Assessment & Plan Assessment & Plan (1) (HFpEF) heart failure with preserved ejection fraction: Comment: Diastolic Dysfunction Code(s): I50.30 - Unspecified diastolic (congestive) heart failure Category: Medical Plan: Patient's symptoms are suggestive of more of decompensated congestive heart failure fluid overload. Will check BNP and BNP today. I have taken the liberty to switch hydrochlorothiazide to Lasix. Continue spironolactone therapy. Discussed management in details. Strict daily weight monitoring avoidance salt loading was discussed. She says she does not use much salt. Continue aggressive blood pressure control. Overall prognosis is guarded. If despite adequate diuresis she continues to have chest pressure may need further testing in form of ischemic evaluation. Myocardial perfusion imaging in 2022 was within normal limits may consider cardiac catheterization at that point in time. Will will follow up in couple of months. (2) Hypertension: Code(s): I10 - Essential (primary) hypertension Category: Medical Plan: Hypertension which still appears to be slightly elevated as per her readings. However readings in the office are within normal limits. She has been more compliant with the medications that she is currently taking. Continue carvedilol, hydralazine as well as nifedipine and spironolactone. Importance of good blood pressure control was discussed. Low-salt diet was discussed. Advised to maintain activity level as tolerated. Follow up in the clinic in 2 months time, sooner p.r.n.. Thank you for allowing me to partake in her care Orders: Orders Basic Metabolic Panel Today I50.30 - Unspecified diastolic (congestive) heart failure B Type Natriuretic Peptide Today I50.30 - Unspecified diastolic (congestive) heart failure Medications: New furosemide (Lasix) 40 mg PO DAILY 30 tabs 3RF spironolactone 25 mg PO DAILY 30 tabs 5RF Discontinued spironolacton-hydrochlorothiaz 25-25 mg Discontinued Reason: Doctor's Order 1 tab PO DAILY 30 tabs 2RF Coding Level of Care Code Est Pt Level 4 (92368) Complex EM visit Add On G2211 Diagnoses (HFpEF) heart failure with preserved ejection fraction I50.30 Hypertension I10
[2025-03-15 15:15] VITALS: BP 120/80; PULSE 63; BMI 28.6
--- OUTSIDE RECORDS SUMMARY | 2025-03-15 18:35 | XMS_ITS | Clinical Summary ---
Author Organization [employer] Address [address] [place] [address] Care Team Providers Care Psychiatric Specialist Name Role Phone Unavailable Primary Care Provider [...] to Health Maintenance Insurance DENTAL - [facility] PPO
--- OUTSIDE RECORDS SUMMARY | 2025-03-15 18:35 | XMS_ITS | Encounter Summary ---
Author Organization [employer] Address [address] [place] [address] Care Team Providers Care Women'S Activities Adviser Name Role Phone Unavailable Primary Care Provider Unavailabl e Reason for Visit * Reason Onset Date Comments Appointment 01/27/2023 Encounter Details Date Type Department Care Team (Late st Contact Info) Description 01/27/2023 Telephone C ADULT DENTAL [address] [place], [place] [phone] Krunal Garcia DDS [address], [place] [phone] Appointment Social History Tobacco Use Types Packs/Day [...] to schedule patient per dates offered by [facility], she stated that she contacted E and they would be sending notes regarding her case. documented in this encounter Plan of Treatment Not on file documented as of this encounter Visit Diagnoses Not on filedocumented in this encounter
== END 2025-03-15 15:48 | disposition home or self-care (01) ==
LOC: HO.HCS 14:55
PROVIDERS: PCP Internal Medicine; Visit Provider Internal Medicine Cardiovascular Disease
DX: I50.30 Unspecified diastolic (congestive) heart failure (principal); I10 Essential (primary) hypertension
CPT/HCPCS: 99214

== ENCOUNTER 2025-03-15 14:55 | Outpatient (REF) | payer BC, SELFPAY ==
[2025-03-15 17:57] LABS: Anion Gap 13 (12-20); Blood Urea Nitrogen 44 mg/dL (9-16); Calcium 9.0 mg/dL (8.4-10.2); Carbon Dioxide 24 mmol/L (22-29); Chloride 108 mmol/L (96-108); Estimated Glomerular Filt Rate 36; Potassium 4.8 mmol/L (3.3-5.1); Sodium 140 mmol/L (135-145)
[2025-03-15 18:01] LABS: B Type Natriuretic Peptide 331 pg/mL (<100)
== END 2025-03-15 14:56 | disposition home or self-care (01) ==
LOC: HO.LAB 14:55
PROVIDERS: PCP Internal Medicine; Visit Provider Internal Medicine Cardiovascular Disease
DX: I11.0 Hypertensive heart disease with heart failure (principal); I50.30 Unspecified diastolic (congestive) heart failure; Z79.899 Other long term (current) drug therapy
CPT/HCPCS: 36415; 80048; 83880

== ENCOUNTER 2025-04-05 09:42 | Outpatient (REF) | payer BC, SELFPAY ==
--- NOTE | ~2025-04-05 | XR_ITS ---
EXAMINATION: XR ABDOMEN COMPLETE CLINICAL INDICATION: R10.9 - Unspecified abdominal pain COMPARISON: None available. TECHNIQUE: Supine and upright of the abdomen. FINDINGS: Bowel gas pattern is normal/nonspecific. There is no focally dilated loop. There are no differential air-fluid levels on the upright radiograph. Moderate fecal burden seen throughout the colon with sparing of the rectum. No abnormal soft tissue calcifications identified aside from mild vascular calcifications. No organomegaly or large abdominal mass. Lung bases appear clear. Osseous structures demonstrate mild levoconvex lumbar scoliosis with mild degenerative spondylosis. No suspicious bone lesions. XR/XR abdomen min 2V IMPRESSION: 1. No acute findings in the abdomen. No bowel obstruction. 2. Moderate constipation. Electronically signed by: Hima Montero MD 04/05/2025 12:03 PM EDT
[2025-04-05 12:13] LABS: MANUAL DIFF FLAG NO
[2025-04-05 12:26] LABS: Hematocrit 30.0 % (37.0-47.0); Hemoglobin 9.6 g/dl (12.0-16.0); Imm Gran Abs Auto 0.01 X10*3/uL (0.00-0.03); Imm Gran Pct Auto 0.2 % (0.0-0.4); Lymphocytes Absolute Auto 1.3 X10*3/uL (1.2-4.9); Mean Corpuscular HGB Conc 32.0 g/dl (31.0-35.0); Mean Corpuscular Hemoglobin 26.9 pg (27.0-33.0); Mean Corpuscular Volume 84.0 fL (80.0-98.0); NRBC Abs Auto 0.000 X10*3/uL (0.0-0.012); NRBC Pct Auto 0.0 /100WBC (0.0-0.2); Platelet Count 233 X10*3/uL (160-400); Red Blood Count 3.57 X10*6/uL (4.20-5.50); White Blood Count 5.0 X10*3/uL (4.8-10.8)
[2025-04-05 12:56] LABS: Anion Gap 12 (12-20); Blood Urea Nitrogen 49 mg/dL (9-16); Calcium 9.1 mg/dL (8.4-10.2); Carbon Dioxide 23 mmol/L (22-29); Chloride 106 mmol/L (96-108); Estimated Glomerular Filt Rate 36; Potassium 4.4 mmol/L (3.3-5.1); Sodium 137 mmol/L (135-145)
== END 2025-04-05 09:43 | disposition home or self-care (01) ==
LOC: HO.LAB 09:42
PROVIDERS: Internal Medicine Hypertension Specialist; PCP Internal Medicine
DX: R10.9 Unspecified abdominal pain (principal); K59.00 Constipation, unspecified; K21.9 Gastro-esophageal reflux disease without esophagitis; D64.9 Anemia, unspecified; I12.9 Hypertensive chronic kidney disease with stage 1 through stage 4 chronic kidney disease, or unspecified chronic kidney disease; N18.30 Chronic kidney disease, stage 3 unspecified
CPT/HCPCS: 36415; 74019; 80048; 85025

== ENCOUNTER 2025-04-05 09:42 | Outpatient (AMB) | payer BC, SELFPAY ==
[2025-04-05 10:12] VITALS: BP 130/52; PULSE 67; RESP 18; TEMP 36.3; O2SAT 98; BMI 28.5
--- NOTE | 2025-04-05 10:12 | MHC.PC.OV ---
Vital Signs 04/05/25 10:12 Height 5 ft 5 in Weight 171 lb 6 oz BMI 28.5 BP 130/52 L Blood Pressure Location Lt brachial Position Sitting Respiration 18 Pulse 67 Pulse Source Pulse Oximeter Temp 97.3 F Temp Source Temporal Artery Scan Pulse Oximetry (%) 98 Oxygen Delivery Method Room Air Intake Visit Reasons: ABD pain Wig Dresser Required: No Accompanied by: Self / Same As Patient Allergies sacubitril (From Entresto) Allergy (Severe, Verified 04/05/25 10:43) Nausea and Vomiting fish derived (FISH) Allergy (Unknown, Verified 04/05/25 10:43) itchy,rash ferrous sulfate Allergy (Verified 04/05/25 10:43) Abdominal Pain valsartan Adverse Reaction (Intermediate, Verified 04/05/25 10:43) Cough terazosin Adverse Reaction (Verified 04/05/25 10:43) Diarrhea metformin Adverse Reaction (Unknown, Uncoded 04/05/25 10:43) mouth sore Medication List - Last Reconciled 04/05/25 by RAY Galeano aspirin 81 mg PO DAILY blood pressure monitor (Blood Pressure Kit) As directed blood sugar diagnostic (FreeStyle Lite Strips) As directed check the BS QD carvedilol (Coreg) 12.5 mg PO BID furosemide (Lasix) 40 mg PO DAILY ketoconazole 2% 1 appl topical DAILY nifedipine ER 60 mg PO DAILY rosuvastatin 20 mg PO DAILY spironolactone 25 mg PO DAILY tirzepatide 5 mg (0.5 mL) subcut QWEEK triamcinolone acetonide 0.1% 1 appl topical BID Tobacco use date assessed: 04/05/25 Dental Screening Dental Screen Date: 04/05/25 Did you have a dental visit in the last 12 months?: No Did you have a dental problem in the last 6 months where you did not have access to dental care?: No Was dental information given to patient?: No HPI ABD pain HPI Details The patient is a 60-year-old female presenting with constipation and symptoms suggestive of gastroesophageal reflux disease (GERD). The patient reports experiencing constipation characterized by hard, dark stools for the past three weeks. She has a daily bowel movement in the morning, but the stool is very hard and dark, resembling a dark greenish color. The patient has not been taking any iron tablets until recently, despite being advised due to low hemoglobin levels. The patient also reports symptoms suggestive of gastroesophageal reflux disease (GERD), including a sensation of food regurgitation and burning in the mouth when saliva touches the skin. She experiences a burning sensation to the outside of he lip when her saliva touches it, likely due to acidic regurgitation from the stomach. The patient denies experiencing heartburn but reports a sensation of food coming back up. The patient has a history of anemia, with a hemoglobin level that dropped from 10.7 to 9.5. She was advised to start iron tablets due to low hemoglobin levels, but she only began taking them recently. [facility] Medical History Heart failure with reduced ejection fraction (HFpEF) heart failure with preserved ejection fraction Cough Subclinical hypothyroidism Tinea versicolor Hypothyroidism Vitamin D deficiency Hypercholesteremia Anemia PAD (peripheral artery disease) CHF (congestive heart failure) Pericardial effusion Acute dermatitis Murmur, cardiac Diabetes Hypertension Surgical History History of cataract surgery History of revascularization procedure of lower extremity S/P complete hysterectomy Family History Father Prostate cancer Mother Hypertension Sister Hypertension Brother No problems noted. 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 Cognitive needs: No Hearing needs: No Vision needs: Yes Questionnaire Thrive Questionnaire Date Thrive assessed: 01/27/25 I am a: Patient What is your living situation today?: I have a steady place to live Within the past 12 months, did the food you bought not last and you didn't have the money to get more?: Never true Within the past 12 months, did you worry whether your food would run out before you got money to buy more?: Never true Do you have trouble paying for medicines?: No Do you have trouble getting transportation to medical appointments?: No Do you have trouble paying your heating and electricity bill?: No Do you have trouble taking care of your child, family member or friend?: No Do you have trouble with day-to-day activities such as bathing, preparing meals, shopping, managing finances, etc.?: No Are you currently unemployed and looking for a job?: I choose not to answer this question Are you interested in more education?: I choose not to answer this question Please select the resources that you would like help with: None Currently or been in a relationship where the following occur: I choose not to answer THRIVE Score: 0 FABIO-7 AMB Questionnaire FABIO-7 Date FABIO - 7 assessed: 07/08/24 Source: Developed by Drs. Vinh Garcia, Alicia Allred, Jordan Olvera and colleagues, with an educational mela from [employer]. Review of Systems Const Denies chills, Denies fatigue and Denies fever(s) Eyes Denies loss of vision ENT Denies hoarseness and Denies sore throat Card Denies chest pain, Denies rapid heart rate, Denies leg edema, Denies lightheadedness and Denies dyspnea Resp Denies cough and Denies dyspnea GI Reports abdominal pain, Reports constipation, Denies heartburn, Reports nausea and Reports other (feels like food is coming back up after eating) Neuro Denies loss of vision Endo Denies fatigue Physical exam (Primary Care) Vital Signs: Last Vital Signs Temp 97.3 F 04/05/25 10:12 Pulse 67 04/05/25 10:12 Resp 18 04/05/25 10:12 BP 130/52 L 04/05/25 10:12 Pulse Ox 98 04/05/25 10:12 Oxygen Delivery Method Room Air 04/05/25 10:12 BMI result Body Mass Index 28.5 Tobacco/Smoking Status: Tobacco use Status Tobacco use date assessed 04/05/25 04/05/25 10:13 Patient Tobacco Use Status Never used Tobacco 04/05/25 10:13 Tobacco use type Cigarette 04/05/25 10:13 e-Cigarette/Vaping Use Never Used 04/05/25 10:13 Thrive Assessment: Date of Thrive Assessment Date Thrive assessed 01/27/25 04/05/25 10:13 Currently or been in a relationship where the following occur: I choose not to answer Const General: cooperative, alert and awake Nutritional Appearance: average body habitus Orientation/consciousness: oriented to person, oriented to place, oriented to time and patient oriented x3 Limitations: no limitations HENMT Head: Yes normal to inspection Ears: hearing grossly normal bilaterally General nose exam: Normal external nose present Eyes General: appearance normal, both eyes and all related structures Resp Effort & Inspection: normal respiratory effort Auscultation: clear to auscultation bilaterally Cardio Rate: regular rate Rhythm: regular rhythm Heart sounds: S1 normal heart sound present and S2 normal heart sound present GI Palpation (GI): Soft to palpation, Tenderness to palpation present (GI) in the LLQ, in the RLQ and periumbilically; with no rebound tenderness and No hepatosplenomegaly present General: Yes no CVA tenderness Back/Spine/Pelvis Back: no CVA tenderness Skin General skin exam: no rashes or lesions noted Neuro General: oriented to person, oriented to place, oriented to time and patient oriented x3 Coding Level of Care Code Est Pt Level 3 (90566) Diagnoses Abdominal pain, unspecified abdominal location R10.9 Abdominal location: unspecified location Constipation, unspecified constipation type K59.00 Constipation type: unspecified constipation type Gastroesophageal reflux disease, unspecified whether esophagitis present K21.9 Esophagitis presence: esophagitis presence not specified Anemia, unspecified type D64.9 Anemia type: unspecified type Time Spent (min) 34 Assessment & Plan Assessment & Plan (1) Abdominal pain: Code(s): R10.9 - Unspecified abdominal pain Category: Medical Qualifiers: Abdominal location: unspecified location Qualified Code(s): R10.9 - Unspecified abdominal pain Plan: Patient reports diffused abdominal pain. X-ray of the abdomen completed to further evaluate. Suspicion of constipation. (2) Constipation: Code(s): K59.00 - Constipation, unspecified Category: Medical Qualifiers: Constipation type: unspecified constipation type Qualified Code(s): K59.00 - Constipation, unspecified Plan: The patient is advised to increase fluid intake and start taking MiraLAX daily to help regulate bowel movements. Colace is recommended as needed if MiraLAX does not suffice. An abdominal X-ray is planned to ensure there is no significant blockage. (3) Acid reflux: Code(s): K21.9 - Gastro-esophageal reflux disease without esophagitis Category: Medical Qualifiers: Esophagitis presence: esophagitis presence not specified Qualified Code(s): K21.9 - Gastro-esophageal reflux disease without esophagitis Plan: A proton pump inhibitor (PPI) is recommended for eight weeks to manage symptoms of regurgitation and burning sensation. The patient to return in 8 weeks to see if symptoms improve. (4) Anemia: Comment: Multifactorial. Erythropoietin deficiency due to CKD is likely Code(s): D64.9 - Anemia, unspecified Category: Medical Qualifiers: Anemia type: unspecified type Qualified Code(s): D64.9 - Anemia, unspecified Plan: CBC ordered to further evaluate. Patient reports seen dark stool that is slightly greenish. The patient H&H has decreased lately and was recommended to start iron supplements. Reports that she has started iron supplements but she was noticing the dark stools before the iron supplements. Orders: Orders Complete Blood Count Auto Diff Today D64.9 - Anemia, unspecified Medications: New omeprazole 40 mg PO DAILY 56 caps 1RF 8 weeks polyethylene glycol 3350 (Miralax) 17 grams PO DAILY 238 grams 3RF docusate sodium (Colace) 100 mg PO BID PRN 60 caps 3RF constipation
--- OUTSIDE RECORDS SUMMARY | 2025-04-05 11:04 | XMS_ITS | Clinical Summary ---
Author Organization [employer] Address [address] [place] [address] Care Team Providers Care Flute Grinder Name Role Phone Unavailable Primary Care Provider [...] Relevant to Health Maintenance Insurance DENTAL - [facility] DENTAL PPO
--- OUTSIDE RECORDS SUMMARY | 2025-04-05 11:04 | XMS_ITS | Encounter Summary ---
Author Organization [employer] Address [address] [place] [address] Care Team Providers Care Financial Aid Director Name Role Phone Unavailable Primary Care Provider Unavailabl e Reason for Visit * Reason Onset Date Comments Appointment 01/27/2023 Encounter Details Date Type Department Care Team (Late st Contact Info) Description 01/27/2023 Telephone C ADULT DENTAL [address] [place], [place] [phone] Krunal Garcia DDS [address] [place], [place] [phone] Appointment Social History Tobacco Use Types Packs/Day [...] to schedule patient per dates offered by [facility] dental, she stated that she contacted E and they would be sending notes regarding her case. documented in this encounter Plan of Treatment Not on file documented as of this encounter Visit Diagnoses Not on filedocumented in this encounter
== END 2025-04-05 11:10 | disposition home or self-care (01) ==
LOC: HO.HMCH 09:42
PROVIDERS: PCP Internal Medicine
DX: R10.9 Unspecified abdominal pain (principal); K59.00 Constipation, unspecified; K21.9 Gastro-esophageal reflux disease without esophagitis; D64.9 Anemia, unspecified

== ENCOUNTER → 2025-04-05 11:21 | Outpatient (BNV) | payer BC, SELFPAY | PROVIDERS: PCP Internal Medicine; Visit Provider Radiology Diagnostic Radiology | DX: K59.00 Constipation, unspecified (principal) | CPT/HCPCS: 74019 ==